=== PATIENT | male | born 1965 | race Caucasian/White ===

== ENCOUNTER 2017-11-04 11:27 | Emergency (ER) | payer BC, OTHER ==
[2017-11-04 12:07] LABS: BASO # 0.1 10^3/uL (0.0-0.2); BASO % 1.1 % (0.0-1.0); EOS # 0.1 10^3/uL (0.0-0.50); HEMATOCRIT 44.1 % (42.0-52.0); HEMOGLOBIN 15.3 g/dl (14.0-18.0); IMMATURE GRANULOCYTE % 0.6 % (0-3.0); LYMPH # 1.7 10^3/uL (1.5-4.5); LYMPH % 24.4 % (24.0-44.0); MEAN CORPUSCULAR HGB CONC 34.7 g/dl (32.0-36.5); MEAN CORPUSCULAR VOLUME 89.3 fl (80.0-96.0); MONO # 0.8 10^3/uL (0.0-0.8); MONO % 10.8 % (0.0-5.0); NEUTROPHILS # 4.4 10^3/uL (1.8-7.7); NEUTROPHILS % 61.1 % (36.0-66.0); PLATELET COUNT, AUTOMATED 134 10^3/uL (150-450); RED BLOOD COUNT 4.94 10^6/uL (4.30-6.10); RED CELL DISTRIBUTION WIDTH 12.8 % (11.5-14.5); WHITE BLOOD COUNT 7.1 10^3/uL (4.0-10.0)
[2017-11-04 12:24] LABS: ANION GAP 10 MEQ/L (8-16); BLOOD UREA NITROGEN 9 MG/DL (7-18); CALCIUM LEVEL 8.8 MG/DL (8.5-10.1); CARBON DIOXIDE LEVEL 26 MEQ/L (21-32); CHLORIDE LEVEL 102 MEQ/L (98-107); CREATININE FOR GFR 0.91 MG/DL (0.70-1.30); GLOMERULAR FILTRATION RATE > 60.0 (>56); GLUCOSE, FASTING 122 MG/DL (70-100); POTASSIUM SERUM 3.4 MEQ/L (3.5-5.1); SODIUM LEVEL 138 MEQ/L (136-145)
[2017-11-04 15:02] LABS: ALBUMIN/GLOBULIN RATIO 0.87 (1.00-1.93); ALKALINE PHOSPHATASE 117 U/L (45-117); ALT/SGPT 43 U/L (12-78); AST/SGOT 93 U/L (7-37); BILIRUBIN,DIRECT 0.4 MG/DL (0.0-0.2); TOTAL PROTEIN 8.6 GM/DL (6.4-8.2)
[2017-11-04] MEDS: LORazepam 2 MG/ML VIAL (J2060) IV (15:28)
[2017-11-04] MEDS: hydrALAZINE INJ 20 MG/ML VIAL IV (15:57)
== END 2017-11-04 16:35 | disposition home or self-care (01) ==
LOC: M ED 11:27
DX: I10 Essential (primary) hypertension (principal); R42 Dizziness and giddiness; R74.8 Abnormal levels of other serum enzymes; F17.220 Nicotine dependence, chewing tobacco, uncomplicated
CPT/HCPCS: J2060

== ENCOUNTER → 2017-11-12 | Outpatient (CLI) | payer OTHER, BC ==
[2017-11-12 18:10] LABS: URIC ACID 7.6 MG/DL (3.5-7.2)
== END ==
LOC: M WUC 12:33
DX: M10.9 Gout, unspecified (principal)
CPT/HCPCS: 84550

== ENCOUNTER 2017-12-24 16:21 | Emergency (ER) | payer BC, OTHER ==
[2017-12-24 17:18] LABS: BASO # 0.1 10^3/uL (0.0-0.2); BASO % 0.7 % (0.0-1.0); EOS % 0.4 % (0.0-3.0); HEMATOCRIT 46.3 % (42.0-52.0); HEMOGLOBIN 15.7 g/dl (13.5-17.5); IMMATURE GRANULOCYTE % 0.4 % (0-3.0); LYMPH # 1.6 10^3/uL (1.5-4.5); LYMPH % 17.3 % (24.0-44.0); MEAN CORPUSCULAR HEMOGLOBIN 29.6 pg (27.0-33.0); MEAN CORPUSCULAR HGB CONC 33.9 g/dl (32.0-36.5); MEAN CORPUSCULAR VOLUME 87.4 fl (80.0-96.0); MONO % 10.2 % (0.0-5.0); NEUTROPHILS # 6.7 10^3/uL (1.8-7.7); PLATELET COUNT, AUTOMATED 229 10^3/uL (150-450); RED CELL DISTRIBUTION WIDTH 13.2 % (11.5-14.5); WHITE BLOOD COUNT 9.4 10^3/uL (4.0-10.0)
[2017-12-24 17:41] LABS: ANION GAP 8 MEQ/L (8-16); BLOOD UREA NITROGEN 15 MG/DL (7-18); CALCIUM LEVEL 10.1 MG/DL (8.5-10.1); CARBON DIOXIDE LEVEL 28 MEQ/L (21-32); CHLORIDE LEVEL 103 MEQ/L (98-107); CREATININE FOR GFR 0.85 MG/DL (0.70-1.30); GLOMERULAR FILTRATION RATE > 60.0 (>56); GLUCOSE, FASTING 104 MG/DL (70-100); POTASSIUM SERUM 3.6 MEQ/L (3.5-5.1); SODIUM LEVEL 139 MEQ/L (136-145)
[2017-12-24] MEDS: hydrALAZINE INJ 20 MG/ML VIAL IV ×2 (17:45→19:29)
[2017-12-24] MEDS ORDERED: ISOVUE-370 76% 100ML VIAL (Q9967) As Ordered (19:19)
[2017-12-24] MEDS: LORazepam 2 MG/ML VIAL (J2060) IV (19:46)
== END 2017-12-24 21:23 | disposition home or self-care (01) ==
LOC: M ED 16:21
DX: I10 Essential (primary) hypertension (principal); R00.0 Tachycardia, unspecified
CPT/HCPCS: Q9967

== ENCOUNTER → 2017-12-31 | Outpatient (CLI) | payer BC, OTHER ==
[2017-12-31 12:20] LABS: BASO # 0.1 10^3/uL (0.0-0.2); BASO % 0.8 % (0.0-1.0); EOS # 0.2 10^3/uL (0.0-0.50); EOS % 1.4 % (0.0-3.0); HEMATOCRIT 45.9 % (42.0-52.0); HEMOGLOBIN 15.6 g/dl (13.5-17.5); IMMATURE GRANULOCYTE % 0.6 % (0-3.0); LYMPH # 2.2 10^3/uL (1.5-4.5); LYMPH % 20.3 % (24.0-44.0); MEAN CORPUSCULAR HEMOGLOBIN 30.1 pg (27.0-33.0); MEAN CORPUSCULAR VOLUME 88.6 fl (80.0-96.0); MONO # 1.9 10^3/uL (0.0-0.8); MONO % 17.2 % (0.0-5.0); NEUTROPHILS # 6.4 10^3/uL (1.8-7.7); NEUTROPHILS % 59.7 % (36.0-66.0); PLATELET COUNT, AUTOMATED 222 10^3/uL (150-450); RED BLOOD COUNT 5.18 10^6/uL (4.30-6.10); RED CELL DISTRIBUTION WIDTH 13.2 % (11.5-14.5); WHITE BLOOD COUNT 10.8 10^3/uL (4.0-10.0)
[2017-12-31 12:32] LABS: ALBUMIN 3.9 GM/DL (3.2-5.2); ALBUMIN/GLOBULIN RATIO 0.83 (1.00-1.93); ALKALINE PHOSPHATASE 99 U/L (45-117); ALT/SGPT 27 U/L (12-78); ANION GAP 10 MEQ/L (8-16); AST/SGOT 39 U/L (7-37); BILIRUBIN,TOTAL 0.8 MG/DL (0.2-1.0); BLOOD UREA NITROGEN 30 MG/DL (7-18); CALCIUM LEVEL 11.2 MG/DL (8.5-10.1); CARBON DIOXIDE LEVEL 37 MEQ/L (21-32); CHLORIDE LEVEL 86 MEQ/L (98-107); CHOLESTEROL LEVEL 183 MG/DL (<200); CREATININE FOR GFR 2.12 MG/DL (0.70-1.30); GLOMERULAR FILTRATION RATE 35.4 (>56); GLUCOSE, FASTING 99 MG/DL (70-100); HDL CHOLESTEROL 61 MG/DL (>40); LDL CHOLESTEROL 90.6 MG/DL (<100); NON-HDL-C 122 MG/DL; POTASSIUM SERUM 3.9 MEQ/L (3.5-5.1); SODIUM LEVEL 133 MEQ/L (136-145); TOTAL PROTEIN 8.6 GM/DL (6.4-8.2); TRIGLYCERIDES LEVEL 157 MG/DL (<150)
[2017-12-31 13:03] LABS: CREATININE, URINE 89.9 MG/DL; MALB URINE SIEMENS 74.1 MG/L; MAU/CREAT RATIO 82.4 MCG/MG (0.0-30.0)
== END ==
LOC: M WUC 08:54
DX: R74.8 Abnormal levels of other serum enzymes (principal); R73.09 Other abnormal glucose; R79.89 Other specified abnormal findings of blood chemistry; I16.0 Hypertensive urgency; Z13.220 Encounter for screening for lipoid disorders
CPT/HCPCS: 80053

== ENCOUNTER → 2018-01-03 | Outpatient (CLI) | payer OTHER, BC ==
[2018-01-03 16:39] LABS: ANION GAP 9 MEQ/L (8-16); BLOOD UREA NITROGEN 41 MG/DL (7-18); CALCIUM LEVEL 11.9 MG/DL (8.5-10.1); CARBON DIOXIDE LEVEL 34 MEQ/L (21-32); CHLORIDE LEVEL 91 MEQ/L (98-107); CREATININE FOR GFR 2.24 MG/DL (0.70-1.30); GLOMERULAR FILTRATION RATE 33.2 (>56); GLUCOSE, FASTING 102 MG/DL (70-100); POTASSIUM SERUM 4.6 MEQ/L (3.5-5.1); SODIUM LEVEL 134 MEQ/L (136-145)
[2018-01-03 16:44] LABS: APPEARANCE, URINE CLEAR (CLEAR); BACTERIA, URINE AUTO NEGATIVE (NEGATIVE); BILIRUBIN, URINE AUTO NEGATIVE (NEGATIVE); BLOOD, URINE BLOOD NEGATIVE (NEGATIVE); COLOR, URINE STRAW (YELLOW); GLUCOSE, URINE (UA) AUTO 1+ mg/dL (NEGATIVE); KETONE, URINE AUTO NEGATIVE (NEGATIVE); LEUKOCYTE ESTERASE, URINE AUTO NEGATIVE (NEGATIVE); NITRITE, URINE AUTO NEGATIVE (NEGATIVE); PROTEIN, URINE AUTO NEGATIVE (NEGATIVE); RBC, URINE AUTO 2 /HPF (0-3); SPECIFIC GRAVITY URINE AUTO 1.006 (1.002-1.035); SQUAMOUS EPITHELIAL CELL UR AU 0 /HPF (0-6); UROBILINOGEN, URINE AUTO 0.2 mg/dL (0.0-2.0); WBC, URINE AUTO 0 /HPF (0-3)
== END ==
LOC: M WUC 12:01
DX: N17.9 Acute kidney failure, unspecified (principal); I16.1 Hypertensive emergency
CPT/HCPCS: 80048

== ENCOUNTER → 2018-01-21 | Outpatient (CLI) | payer OTHER, BC ==
[2018-01-21 16:54] LABS: IONIZED CALCIUM 4.5 MG/DL (4.5-5.3)
[2018-01-21 17:29] LABS: PTH INTACT 56.1 PG/ML (18.5-88.0)
[2018-01-21 18:54] LABS: ESTIMATED AVERAGE GLUCOSE 120 MG/DL (60-110); HEMOGLOBIN A1c 5.8 %
== END ==
LOC: M WUC 16:12
DX: E83.52 Hypercalcemia (principal); R81 Glycosuria
CPT/HCPCS: 82310

== ENCOUNTER → 2018-01-30 | Outpatient (CLI) | payer OTHER, BC ==
[2018-01-30 13:33] LABS: ALBUMIN/GLOBULIN RATIO 0.89 (1.00-1.93); ALKALINE PHOSPHATASE 186 U/L (45-117); ALT/SGPT 51 U/L (12-78); ANION GAP 10 MEQ/L (8-16); AST/SGOT 83 U/L (7-37); BILIRUBIN,TOTAL 0.8 MG/DL (0.2-1.0); BLOOD UREA NITROGEN 12 MG/DL (7-18); CALCIUM LEVEL 8.7 MG/DL (8.5-10.1); CARBON DIOXIDE LEVEL 23 MEQ/L (21-32); CHLORIDE LEVEL 106 MEQ/L (98-107); CREATININE FOR GFR 0.82 MG/DL (0.70-1.30); GLOMERULAR FILTRATION RATE > 60.0 (>56); GLUCOSE, FASTING 101 MG/DL (70-100); POTASSIUM SERUM 4.1 MEQ/L (3.5-5.1); SODIUM LEVEL 139 MEQ/L (136-145); TOTAL PROTEIN 8.5 GM/DL (6.4-8.2)
[2018-01-30 13:43] LABS: MAU/CREAT RATIO 80.2 MCG/MG (0.0-30.0)
== END ==
LOC: M WUC 10:36
DX: N17.9 Acute kidney failure, unspecified (principal); I10 Essential (primary) hypertension
CPT/HCPCS: 80053

== ENCOUNTER → 2018-01-30 | Outpatient (CLI) | payer OTHER, BC ==
[2018-01-30 13:34] LABS: ANION GAP 10 MEQ/L (8-16); BLOOD UREA NITROGEN 12 MG/DL (7-18); CALCIUM LEVEL 8.7 MG/DL (8.5-10.1); CARBON DIOXIDE LEVEL 23 MEQ/L (21-32); CHLORIDE LEVEL 106 MEQ/L (98-107); CREATININE FOR GFR 0.82 MG/DL (0.70-1.30); GLOMERULAR FILTRATION RATE > 60.0 (>56); GLUCOSE, FASTING 101 MG/DL (70-100); POTASSIUM SERUM 4.1 MEQ/L (3.5-5.1); SODIUM LEVEL 139 MEQ/L (136-145)
[2018-01-30 14:01] LABS: PHOSPHORUS LEVEL 3.9 MG/DL (2.5-4.9)
[2018-01-30 23:33] LABS: MAU/CREAT RATIO 74.1 MCG/MG (0.0-30.0)
[2018-02-08 00:08] LABS: ALDOS/RENIN RATIO 2.5 (0.0-30.0); RENIN ACTIVITY 1.986 ng/mL/hr (0.167-5.380)
== END ==
LOC: M WUC 10:40
DX: I10 Essential (primary) hypertension (principal)
CPT/HCPCS: 84244

== ENCOUNTER → 2018-02-03 | Outpatient (REF) | payer OTHER, BC ==
[2018-02-03 11:57] LABS: TOTAL VOLUME, URINE 1750 ML
[2018-02-03 12:23] LABS: SODIUM 24 HOUR URINE 24 MEQ/24HR (40-220); SODIUM, URINE 14 MEQ/L
[2018-02-07 00:07] LABS: DOPAMINE 236 ug/24 hr (0-510); DOPAMINE TOTAL URINE 135 ug/L (Undefined); EPINEPHRINE 4 ug/24 hr (0-20); EPINEPHRINE TOTAL URINE 2 ug/L (Undefined); METANEPHRINE TOTAL URINE 37 ug/L (Undefined); METANEPHRINE URINE 65 ug/24 hr (45-290); NOREPINEPHRINE 72 ug/24 hr (0-135); NOREPINEPHRINE TOTAL URINE 41 ug/L (Undefined); NORMETANEPHRINE TOTAL URINE 264 ug/L (Undefined); NORMETANEPHRINE URINE 462 ug/24 hr (82-500)
== END ==
LOC: M LAB REF 11:32
DX: I10 Essential (primary) hypertension (principal)

== ENCOUNTER → 2018-03-11 | Outpatient (REF) | payer OTHER, BC ==
[2018-03-20 00:20] LABS: CORTISOL SALIVARY 0.275 ug/dL (.)
== END ==
LOC: M LAB REF 17:30
DX: I10 Essential (primary) hypertension (principal)

== ENCOUNTER → 2018-03-21 | Outpatient (CLI) | payer OTHER, BC ==
[2018-03-21 13:13] LABS: INR 1.07; PARTIAL THROMBOPLASTIN TIME 31.9 SECONDS (25.4-37.6); PROTHROMBIN TIME 14.1 SECONDS (12.1-14.4)
[2018-03-21 13:21] LABS: ALBUMIN/GLOBULIN RATIO 0.87 (1.00-1.93); ALKALINE PHOSPHATASE 272 U/L (45-117); ALT/SGPT 81 U/L (12-78); ANION GAP 11 MEQ/L (8-16); AST/SGOT 188 U/L (7-37); BILIRUBIN,TOTAL 1.4 MG/DL (0.2-1.0); BLOOD UREA NITROGEN 7 MG/DL (7-18); CALCIUM LEVEL 9.6 MG/DL (8.5-10.1); CARBON DIOXIDE LEVEL 27 MEQ/L (21-32); CHLORIDE LEVEL 102 MEQ/L (98-107); GLOMERULAR FILTRATION RATE > 60.0 (>56); GLUCOSE, FASTING 122 MG/DL (70-100); POTASSIUM SERUM 4.2 MEQ/L (3.5-5.1); SODIUM LEVEL 140 MEQ/L (136-145); TOTAL PROTEIN 8.6 GM/DL (6.4-8.2)
== END ==
LOC: M WUC 09:00
DX: R94.5 Abnormal results of liver function studies (principal)
CPT/HCPCS: 80053

== ENCOUNTER → 2018-04-24 | Outpatient (CLI) | payer OTHER, BC ==
[2018-04-24 10:49] LABS: BASO # 0.1 10^3/uL (0.0-0.2); BASO % 0.8 % (0.0-1.0); EOS # 0.2 10^3/uL (0.0-0.50); EOS % 3.4 % (0.0-3.0); HEMATOCRIT 43.2 % (42.0-52.0); HEMOGLOBIN 14.7 g/dl (13.5-17.5); IMMATURE GRANULOCYTE % 0.3 % (0-3.0); LYMPH # 2.1 10^3/uL (1.5-4.5); LYMPH % 29.2 % (24.0-44.0); MEAN CORPUSCULAR HEMOGLOBIN 31.1 pg (27.0-33.0); MEAN CORPUSCULAR VOLUME 91.3 fl (80.0-96.0); MONO # 0.9 10^3/uL (0.0-0.8); MONO % 12.1 % (0.0-5.0); NEUTROPHILS # 3.9 10^3/uL (1.8-7.7); NEUTROPHILS % 54.2 % (36.0-66.0); PLATELET COUNT, AUTOMATED 163 10^3/uL (150-450); RED BLOOD COUNT 4.73 10^6/uL (4.30-6.10); RED CELL DISTRIBUTION WIDTH 12.2 % (11.5-14.5); WHITE BLOOD COUNT 7.1 10^3/uL (4.0-10.0)
[2018-04-24 11:37] LABS: BILIRUBIN,DIRECT 0.5 MG/DL (0.0-0.2); BILIRUBIN,TOTAL 1.1 MG/DL (0.2-1.0); GAMMA GLUTAMYLTRANSPEPTIDASE 4500 U/L (15-85); TOTAL PROTEIN 8.8 GM/DL (6.4-8.2)
[2018-04-25 09:15] LABS: HEPATITIS B SURFACE ANTIGEN NEGATIVE (NEGATIVE)
[2018-04-25 09:39] LABS: HEPATITIS C VIRUS ABY INDEX 0.1 INDEX (<0.8)
[2018-04-25 09:40] LABS: HEPATITIS B CORE ANTIBODY IGM NEGATIVE (NEGATIVE)
[2018-04-25 09:41] LABS: HEPATITIS A ANTIBODY IGM NEGATIVE (NEGATIVE)
[2018-04-25 14:57] LABS: CERULOPLASMIN 23.3 mg/dL (16.0-31.0)
[2018-04-29 10:59] LABS: ALBUMIN 4.64 GM/DL (3.29-5.55); ALBUMIN % 52.7 % (55.8-66.1); ALPHA-1-GLOBULIN % 3.2 % (2.9-4.9); ALPHA-1-GLOBULINS 0.28 GM/DL (0.17-0.41); ALPHA-2-GLOBULINS 0.84 GM/DL (0.42-0.99); ALPHA-2-GLOBULINS % 9.6 % (7.1-11.8); BETA-1-GLOBULINS % 7.9 % (4.7-7.2)
[2018-04-29 11:00] LABS: BETA-2-GLOBULINS 0.66 GM/DL (0.19-0.55); BETA-2-GLOBULINS % 7.5 % (3.2-6.5); GAMMA GLOBULIN % 19.1 % (11.1-18.8); GAMMA GLOBULINS 1.68 GM/DL (0.65-1.58)
== END ==
LOC: M WUC 09:02
DX: R94.5 Abnormal results of liver function studies (principal); R04.0 Epistaxis
CPT/HCPCS: 82247

== ENCOUNTER → 2018-04-25 | Outpatient (CLI) | payer BC, OTHER | LOC: M RAD 07:50 | DX: R94.5 Abnormal results of liver function studies (principal); K76.0 Fatty (change of) liver, not elsewhere classified | CPT/HCPCS: 76705 ==

== ENCOUNTER → 2018-05-29 | Outpatient (CLI) | payer OTHER, BC ==
[2018-05-29 13:52] LABS: RETIC HEMOGLOBIN EQUIVALENT 36.6 pg (24-36); RETICULOCYTE # 42.2 10^9/L (17-77); RETICULOCYTE % 0.9 % (0.5-1.5)
[2018-05-29 14:08] LABS: CREATININE, URINE 81.5 MG/DL
[2018-05-29 14:10] LABS: FERRITIN 52 NG/ML (26-388); IRON (FE) 67 UG/DL (65-175); PERCENT SATURATION 13.6 % (19.7-50.0); TOTAL IRON BINDING CAPACITY 491 UG/DL (250-450)
[2018-05-29 14:12] LABS: MAU/CREAT RATIO 353.4 MCG/MG (0.0-30.0)
[2018-05-30 09:53] LABS: TRANSFERRIN 380 mg/dL (200-370)
== END ==
LOC: M WUC 10:26
DX: Z13.0 Encounter for screening for diseases of the blood and blood-forming organs and certain disorders involving the immune mechanism (principal); I10 Essential (primary) hypertension
CPT/HCPCS: 83550

== ENCOUNTER → 2018-07-10 | Outpatient (REF) | payer OTHER | LOC: M LAB REF 13:26 | DX: R80.9 Proteinuria, unspecified (principal) ==

== ENCOUNTER → 2018-07-16 | Outpatient (CLI) | payer BC, OTHER | LOC: M SLEEP HO 10:39 | DX: G47.34 Idiopathic sleep related nonobstructive alveolar hypoventilation (principal); G47.33 Obstructive sleep apnea (adult) (pediatric) | CPT/HCPCS: G0399 ==

== ENCOUNTER → 2018-07-31 | Outpatient (CLI) | payer OTHER, BC ==
[2018-07-31 13:01] LABS: INR 1.15; PROTHROMBIN TIME 14.8 SECONDS (12.1-14.4)
[2018-07-31 13:02] LABS: PARTIAL THROMBOPLASTIN TIME 32.2 SECONDS (25.4-37.6)
[2018-07-31 13:16] LABS: ALBUMIN 3.8 GM/DL (3.2-5.2); ALBUMIN/GLOBULIN RATIO 0.76 (1.00-1.93); ALKALINE PHOSPHATASE 291 U/L (45-117); ALT/SGPT 51 U/L (12-78); ANION GAP 11 MEQ/L (8-16); AST/SGOT 103 U/L (7-37); BILIRUBIN,DIRECT 0.7 MG/DL (0.0-0.2); BILIRUBIN,TOTAL 1.1 MG/DL (0.2-1.0); BLOOD UREA NITROGEN 10 MG/DL (7-18); CALCIUM LEVEL 8.9 MG/DL (8.5-10.1); CARBON DIOXIDE LEVEL 26 MEQ/L (21-32); CHLORIDE LEVEL 105 MEQ/L (98-107); CREATININE FOR GFR 0.81 MG/DL (0.70-1.30); GLOMERULAR FILTRATION RATE > 60.0 (>56); GLUCOSE, FASTING 97 MG/DL (70-100); POTASSIUM SERUM 3.9 MEQ/L (3.5-5.1); SODIUM LEVEL 142 MEQ/L (136-145); TOTAL PROTEIN 8.8 GM/DL (6.4-8.2)
[2018-08-05 10:16] LABS: ALPHA 2-MACROGLOBULINS,QN 248 mg/dL (110-276); ALT (SGPT) P5P 43 IU/L (0-55); APOLIPOPROTEIN A-1 204 mg/dL (101-178); AST (SGOT) P5P 108 IU/L (0-40); BILIRUBIN, TOTAL 0.9 mg/dL (0.0-1.2); CHOLESTEROL TOTAL 183 mg/dL (100-199); GGT 2505 IU/L (0-65); GLUCOSE, SERUM 100 mg/dL (65-99); HAPTOGLOBIN 234 mg/dL (34-200); HEIGHT 67 in (.); TRIGLYCERIDES 164 mg/dL (0-149); WEIGHT 157 LBS (.)
== END ==
LOC: M WUC 10:34
DX: K70.30 Alcoholic cirrhosis of liver without ascites (principal)
CPT/HCPCS: 82248

== ENCOUNTER → 2018-08-16 | Outpatient (REF) | payer OTHER ==
[~2018-08-16] MED LIST: CHLO125TA PO; CHLO50TA PO; HYDR12.55 PO
== END ==
LOC: M SFHCPLAZ 09:51
DX: K70.30 Alcoholic cirrhosis of liver without ascites (principal)

== ENCOUNTER → 2018-08-28 | Outpatient (CLI) | payer OTHER | LOC: M OUTALCOH 08:55 | PROVIDERS: ATTEND Psychiatry & Neurology Psychiatry | DX: Z13.89 Encounter for screening for other disorder (principal); F10.10 Alcohol abuse, uncomplicated ==

== ENCOUNTER → 2018-09-12 | Outpatient (CLI) | payer BC, OTHER ==
[~2018-09-12] MED LIST changes: +AMLO10TA5 PO; +ATOR40TA75 PO; +FOLI1TAB11 PO; +METO1TAB7 PO; +MULT1TAB10 PO; +VITA100T88 PO
[2018-09-12 13:44] LABS: ALBUMIN 4.5 GM/DL (3.2-5.2); ALT/SGPT 62 U/L (12-78); BILIRUBIN,TOTAL 0.8 MG/DL (0.2-1.0); BLOOD UREA NITROGEN 15 MG/DL (7-18); CARBON DIOXIDE LEVEL 24 MEQ/L (21-32); CHLORIDE LEVEL 104 MEQ/L (98-107); CREATININE FOR GFR 0.95 MG/DL (0.70-1.30); GLOMERULAR FILTRATION RATE > 60.0 (>56); GLUCOSE, FASTING 130 MG/DL (70-100); SODIUM LEVEL 138 MEQ/L (136-145); TOTAL PROTEIN 9.1 GM/DL (6.4-8.2)
[2018-09-12 14:02] LABS: HEPATITIS B SURFACE ANTIBODY NEGATIVE (POSITIVE)
[2018-09-12 14:41] LABS: HEPATITIS B CORE ANTIBODY IGM NEGATIVE (NEGATIVE); HEPATITIS C VIRUS ABY INDEX 0.1 INDEX (<0.8)
[2018-09-13 08:06] LABS: HEPATITIS A IgG TOTAL Positive (Negative)
== END ==
LOC: M WUC 10:00
PROVIDERS: ATTEND Family Medicine
DX: K70.30 Alcoholic cirrhosis of liver without ascites (principal)

== ENCOUNTER 2018-09-22 11:00 | Outpatient (RCR) | payer OTHER ==
[~2018-09-22 11:00] MED LIST changes: -AMLO10TA5 PO; -ATOR40TA75 PO; -FOLI1TAB11 PO; -METO1TAB7 PO; -MULT1TAB10 PO; -VITA100T88 PO
== END 2018-10-02 ==
LOC: M OUTALCOH 11:00
PROVIDERS: ATTEND Psychiatry & Neurology Psychiatry
DX: F10.20 Alcohol dependence, uncomplicated (principal); F17.200 Nicotine dependence, unspecified, uncomplicated

== ENCOUNTER 2018-10-15 07:55 | Day surgery (SDC) | payer BC, OTHER ==
[~2018-10-15] VITALS: Ht 170.2 cm; Wt 69.9 kg
[~2018-10-15 07:55] MED LIST changes: +ACETAMINOPHEN 325 MG TAB PO PRN; +AMLO10TA5 PO; +ATOR40TA75 PO; +BALANCED SALT IRRIGATION SOLUTION 500ML BAG (FOR OR EYE MACHINE) As Ordered ONE; +BSS with VANC/TOB/EPI for EYE CASES IR ONE; +CEFUROXIME 1MG/0.1ML INTRACAMERAL INJ As Ordered ONE; +CYCLOPENTOLATE 2% OPHTH SOLN 2ML BTL OS ONE; +FOLI1TAB11 PO; +HEALON DUET PRO(HEALON 10MG/ML 0.55ML & HEALON ENDOCOAT 30MG/ML 0.85ML) As Ordered ONE; +LIDOCAINE 1% SDV 5 ML VIAL As Ordered ONE; +LIDOCAINE 3.5 % 1ML OPHTH TOPICAL GEL OU ONE; +METO1TAB7 PO; +MULT1TAB10 PO; +OFLOXACIN 0.3 % (OCUFLOX) OPTH SOL 5ML OS ONE; +PHENYLEPHRINE 2.5% OPHTH SOL 2ML OS ONE; +PHENYLEPHRINE HCL 10 % OPHTH. SOL 5ML OS PRN; +POVIDONE-IODINE 5% OPHTH PREP SOL 30ML As Ordered ONE; +PROPARACAINE 0.5% OPHTH SOL 15ML OS PRN; +TROPICAMIDE 1% OPHTH SOLN 2ML OS ONE; +VITA100T88 PO
[2018-10-15] MEDS ORDERED: KETOROLAC 0.5% OPHTH SOLN OS ONE (08:15)
[2018-10-15] MEDS ORDERED: AcetaZOLAMIDE 500 MG ER CAP PO ONE (08:15)
[2018-10-15] MEDS ORDERED: TRIMETHOBENZAMIDE 300 MG CAP PO PRN (08:15)
[2018-10-15] MEDS ORDERED: MIDAZOLAM INJ 2 MG/2 ML VIAL (J2250) As Ordered ONE (09:01)
[2018-10-15] MEDS ORDERED: fentaNYL 100 MCG/2 ML INJECTION (J3010) As Ordered ONE (09:01)
[2018-10-15] MEDS ORDERED: HEALON DUET PRO(HEALON 10MG/ML 0.55ML & HEALON ENDOCOAT 30MG/ML 0.85ML) As Ordered ONE (09:22)
[2018-10-15 09:45] VITALS: BP 131/78
[2018-10-15] MEDS ORDERED: PERCOCET 5MG/325MG TAB PO PRN (09:45)
[2018-10-15] MEDS ORDERED: fentaNYL 100 MCG/2 ML INJECTION (J3010) IV PRN (09:45)
--- NOTE | 2018-10-17 12:36 | RO ---
DATE OF PROCEDURE: 10/15/2018 PREOPERATIVE DIAGNOSIS: Age-related nuclear cataract left eye. POSTOPERATIVE DIAGNOSIS: Age-related nuclear cataract left eye. PROCEDURE PERFORMED: Femtosecond cataract extraction with posterior chamber intraocular lens implantation and Optiwave Refractive Analysis (ORA). Lens used was AU00T0, 21.0 diopter. SURGEON: Nicolasa Barragan MD MOTION PICTURE SCENE BUILDER: ANESTHESIA: Topical with sedation. DESCRIPTION OF PROCEDURE: Patient was prepped and draped in usual fashion. A lid speculum was placed between the lids. The eye was fixated. A stab incision was made into the anterior chamber. 1% nonpreserved lidocaine was instilled. Then viscoelastic was instilled. The main incision was then opened with the incision dental laboratory supervisor, and the anterior capsulorrhexis was removed, was performed by the laser. The lens was then rocked to remove any gas from behind it, and then it was freely movable in the capsular bag. The phacoemulsification unit was used to groove the nucleus in two meridians. The nucleus was cracked into four quadrants. Each quadrant was removed with the phacoemulsification unit. Any remaining cortex was removed with the irrigation and aspiration (I and A) unit. The capsular bag was refilled with viscoelastic, and then the intraocular pressure measured and found to be adequate for ORA. The ORA was lowered into place, focused on the apex of the cornea, and aligned to the patient. Readings were made, and an appropriate intraocular lens was chosen from the data generated by the ORA. The lens was then injected into the eye with its filler block inserter remover and into the capsular bag. It was in great position. Any remaining viscoelastic was removed with the I and A unit. The wound was then hydrated, and balanced salt solution (BSS) and cefuroxime were instilled. Patient tolerated this procedure well and went to recovery room in stable condition.
== END 2018-10-15 10:00 | disposition home or self-care (01) ==
LOC: M SDC 07:55
PROVIDERS: ATTEND Ophthalmology
DX: H25.12 Age-related nuclear cataract, left eye (principal); E78.5 Hyperlipidemia, unspecified; Z79.899 Other long term (current) drug therapy; I10 Essential (primary) hypertension; F17.220 Nicotine dependence, chewing tobacco, uncomplicated
CPT/HCPCS: 66984; 92015; J2250; J3010

== ENCOUNTER 2018-11-12 07:51 | Day surgery (SDC) | payer BC, OTHER ==
[~2018-11-12] VITALS: Ht 170.2 cm; Wt 68.9 kg
[~2018-11-12 07:51] MED LIST changes: -ACETAMINOPHEN 325 MG TAB PO PRN; -BSS with VANC/TOB/EPI for EYE CASES IR ONE; +CYCLOPENTOLATE 2% OPHTH SOLN 2ML BTL OD ONE; -CYCLOPENTOLATE 2% OPHTH SOLN 2ML BTL OS ONE; +OFLOXACIN 0.3 % (OCUFLOX) OPTH SOL 5ML OD ONE; -OFLOXACIN 0.3 % (OCUFLOX) OPTH SOL 5ML OS ONE; +PHENYLEPHRINE 2.5% OPHTH SOL 2ML OD ONE; -PHENYLEPHRINE 2.5% OPHTH SOL 2ML OS ONE; +PHENYLEPHRINE HCL 10 % OPHTH. SOL 5ML OD PRN; -PHENYLEPHRINE HCL 10 % OPHTH. SOL 5ML OS PRN; -PROPARACAINE 0.5% OPHTH SOL 15ML OS PRN; +TROPICAMIDE 1% OPHTH SOLN 2ML OD ONE; -TROPICAMIDE 1% OPHTH SOLN 2ML OS ONE
[2018-11-12] MEDS ORDERED: fentaNYL 100 MCG/2 ML INJECTION (J3010) As Ordered ONE (07:56)
[2018-11-12] MEDS ORDERED: MIDAZOLAM INJ 2 MG/2 ML VIAL (J2250) As Ordered ONE (07:56)
[2018-11-12 10:50] VITALS: BP 133/82
--- NOTE | 2018-11-12 16:28 | RO ---
DATE OF PROCEDURE: 11/12/2018 PREOPERATIVE DIAGNOSIS: Age-related nuclear cataract right eye. POSTOPERATIVE DIAGNOSIS: Age-related nuclear cataract right eye. PROCEDURE PERFORMED: Femtosecond cataract extraction with posterior chamber intraocular lens implantation and Optiwave Refractive Analysis (ORA). Lens used was an AU00T0, 22.5 diopter. SURGEON: Nicolasa Barragan MD PATTERNMAKER HELPER: ANESTHESIA: Topical with sedation. DESCRIPTION OF PROCEDURE: Patient was prepped and draped in usual fashion. A lid speculum was placed between the lids. The eye was fixated. A stab incision was made into the anterior chamber. 1% nonpreserved lidocaine was instilled. Then viscoelastic was instilled. The main incision was then opened with the incision reject opener and filler, and the anterior capsulorrhexis was removed, was performed by the laser. The lens was then rocked to remove any gas from behind it, and then it was freely movable in the capsular bag. The phacoemulsification unit was used to groove the nucleus in two meridians. The nucleus was cracked into four quadrants. Each quadrant was removed with the phacoemulsification unit. Any remaining cortex was removed with the irrigation and aspiration (I and A) unit. The capsular bag was refilled with viscoelastic, and then the intraocular pressure measured and found to be adequate for ORA. The ORA was lowered into place, focused on the apex of the cornea, and aligned to the patient. Readings were made, and an appropriate intraocular lens was chosen from the data generated by the ORA. The lens was then injected into the eye with its tray service worker and into the capsular bag. It was in great position. Any remaining viscoelastic was removed with the I and A unit. The wound was then hydrated, and balanced salt solution (BSS) and cefuroxime were instilled. Patient tolerated this procedure well and went to recovery room in stable condition.
== END 2018-11-12 11:00 | disposition home or self-care (01) ==
LOC: M SDC 07:51
PROVIDERS: ATTEND Ophthalmology
DX: H25.11 Age-related nuclear cataract, right eye (principal); I10 Essential (primary) hypertension; E78.5 Hyperlipidemia, unspecified; Z79.899 Other long term (current) drug therapy; F17.220 Nicotine dependence, chewing tobacco, uncomplicated
CPT/HCPCS: 66984; 92015; J2250; J3010

== ENCOUNTER → 2018-11-17 | Outpatient (CLI) | payer BC, OTHER ==
[~2018-11-17] MED LIST changes: -BALANCED SALT IRRIGATION SOLUTION 500ML BAG (FOR OR EYE MACHINE) As Ordered ONE; -CEFUROXIME 1MG/0.1ML INTRACAMERAL INJ As Ordered ONE; -CYCLOPENTOLATE 2% OPHTH SOLN 2ML BTL OD ONE; -HEALON DUET PRO(HEALON 10MG/ML 0.55ML & HEALON ENDOCOAT 30MG/ML 0.85ML) As Ordered ONE; -LIDOCAINE 1% SDV 5 ML VIAL As Ordered ONE; -LIDOCAINE 3.5 % 1ML OPHTH TOPICAL GEL OU ONE; -OFLOXACIN 0.3 % (OCUFLOX) OPTH SOL 5ML OD ONE; -PHENYLEPHRINE 2.5% OPHTH SOL 2ML OD ONE; -PHENYLEPHRINE HCL 10 % OPHTH. SOL 5ML OD PRN; -POVIDONE-IODINE 5% OPHTH PREP SOL 30ML As Ordered ONE; -TROPICAMIDE 1% OPHTH SOLN 2ML OD ONE
--- NOTE | 2018-11-18 06:28 | REP ---
Clinical: Non alcoholic fatty liver disease. Comparison: 04/25/2018 Technique: Ortiz scale ultrasound using curved array transducer. Findings: The liver and pancreas are normal in contour, size, and echogenicity without focal hepatic or pancreatic lesions identified. The gallbladder is normal without gallstones, wall thickening or pericholecystic fluid. No biliary ductal dilatation is appreciated, and the common bile duct measures 4.2 mm diameter. The right kidney is normal in reniform shape without hydronephrosis and measures 10.3 x 5.3 x 5.4 cm. No ascites. Visualized portions of the abdominal aorta normal. Impression: Normal right upper quadrant and gallbladder abdominal ultrasound. Electronically Signed by Scotty Kaiser MD 11/18/2018 06:19 A
== END ==
LOC: M RAD 09:15
PROVIDERS: ATTEND Student in an Organized Health Care Education/Training Program
DX: Z87.19 Personal history of other diseases of the digestive system (principal)

== ENCOUNTER → 2018-12-09 | Outpatient (CLI) | payer OTHER, BC ==
[2018-12-09 12:50] LABS: CHOLESTEROL RISK RATIO 2.405 (<5)
[2018-12-09 12:56] LABS: INR 1.05; PROTHROMBIN TIME 13.8 SECONDS (12.1-14.4)
[2018-12-09 13:04] LABS: HEMOGLOBIN A1c 5.7 %
[2018-12-11 00:06] LABS: ALPHA 1 ANTITRYPSIN 122 mg/dL (90-200); ANTI-MITOCHONDRIAL ANTIBODY <20.0 Units (0.0-20.0); ANTI-SMOOTH MUSCLE ANTIBODY 6 Units (0-19); ANTINUCLEAR ANTIBODIES DIRECT Negative (Negative); TISSUE TRANSGLUTAMINASE IgA <2 U/mL (0-3)
== END ==
LOC: M WUC 10:04
PROVIDERS: ATTEND Student in an Organized Health Care Education/Training Program
DX: K70.30 Alcoholic cirrhosis of liver without ascites (principal); E78.1 Pure hyperglyceridemia; K76.0 Fatty (change of) liver, not elsewhere classified

== ENCOUNTER → 2019-03-27 | Outpatient (REF) | payer OTHER | LOC: M LAB REF 16:12 | PROVIDERS: ATTEND Ophthalmology | DX: D23.112 Other benign neoplasm of skin of right lower eyelid, including canthus (principal) ==

== ENCOUNTER → 2019-05-15 | Outpatient (CLI) | payer BC, OTHER ==
--- NOTE | 2019-05-15 10:42 | REP ---
RIGHT UPPER QUADRANT ULTRASOUND: Real-time sonographic evaluation of the right upper quadrant was performed. The gallbladder demonstrates no evidence of intraluminal sludge or calculi, wall thickening or pericholecystic fluid. There is no intrahepatic or extrahepatic biliary dilatation. Common bile duct measuring 2 mm. Liver demonstrates diffuse coarsened heterogenous echotexture compatible with diffuse fibrofatty infiltration. No gross mass is seen. Main portal vein measures 15 mm which is mildly dilated, raising the possibility of portal hypertension. Pancrease is not well seen due to overlying bowel gas. Right kidney demonstrates no hydronephrosis with normal size 10.3 cm in length. IMPRESSION: Heterogenous echotexture of the liver compatible with diffuse fibrofatty infiltration and possible cirrhosis. Mild dilatation of the main portal vein 15 mm raises the possibility of portal hypertension. Electronically Signed by Dann Ortiz MD 05/15/2019 12:20 P
== END ==
LOC: M RAD 09:10
PROVIDERS: ATTEND Student in an Organized Health Care Education/Training Program
DX: K70.9 Alcoholic liver disease, unspecified (principal)

== ENCOUNTER → 2019-06-10 | Outpatient (CLI) | payer OTHER, BC ==
[2019-06-10 12:23] LABS: INR 1.05; PROTHROMBIN TIME 13.4 SECONDS (11.8-14.0)
[2019-06-10 12:24] LABS: PARTIAL THROMBOPLASTIN TIME 28.8 SECONDS (25.0-38.4)
[2019-06-10 12:37] LABS: ALBUMIN 4.2 GM/DL (3.2-5.2); ALT/SGPT 53 U/L (12-78); BLOOD UREA NITROGEN 21 MG/DL (7-18); CALCIUM LEVEL 9.1 MG/DL (8.5-10.1); CARBON DIOXIDE LEVEL 26 MEQ/L (21-32); CHLORIDE LEVEL 105 MEQ/L (98-107); CREATININE FOR GFR 1.13 MG/DL (0.70-1.30); GLOMERULAR FILTRATION RATE > 60.0 (>56); GLUCOSE, FASTING 103 MG/DL (70-100); POTASSIUM SERUM 4.7 MEQ/L (3.5-5.1); SODIUM LEVEL 138 MEQ/L (136-145); TOTAL PROTEIN 7.7 GM/DL (6.4-8.2)
== END ==
LOC: M WUC 10:36
PROVIDERS: ATTEND Student in an Organized Health Care Education/Training Program
DX: K70.9 Alcoholic liver disease, unspecified (principal)

== ENCOUNTER → 2019-10-02 | Outpatient (RCR) | payer OTHER, SELFPAY | LOC: M OUTALCOH 09-25 08:02 | PROVIDERS: ATTEND Psychiatry & Neurology Addiction Medicine | DX: F10.10 Alcohol abuse, uncomplicated (principal); F17.200 Nicotine dependence, unspecified, uncomplicated ==

== ENCOUNTER → 2019-12-14 | Outpatient (CLI) | payer OTHER ==
[2019-12-14 13:05] LABS: ALBUMIN 4.4 GM/DL (3.2-5.2); ALT/SGPT 53 U/L (12-78); BILIRUBIN,TOTAL 0.6 MG/DL (0.2-1.0); BLOOD UREA NITROGEN 18 MG/DL (7-18); CALCIUM LEVEL 9.4 MG/DL (8.5-10.1); CARBON DIOXIDE LEVEL 25 MEQ/L (21-32); CHLORIDE LEVEL 107 MEQ/L (98-107); CREATININE FOR GFR 1.27 MG/DL (0.70-1.30); GLOMERULAR FILTRATION RATE > 60.0 (>56); GLUCOSE, FASTING 109 MG/DL (70-100); POTASSIUM SERUM 4.8 MEQ/L (3.5-5.1); SODIUM LEVEL 139 MEQ/L (136-145); TOTAL PROTEIN 8.1 GM/DL (6.4-8.2)
[2019-12-14 13:26] LABS: INR 1.05; PROTHROMBIN TIME 13.4 SECONDS (11.8-14.0)
== END ==
LOC: M WUC 10:09
PROVIDERS: ATTEND Family Medicine
DX: K70.9 Alcoholic liver disease, unspecified (principal)

== ENCOUNTER → 2019-12-21 | Outpatient (REF) | payer OTHER ==
[2019-12-21 17:21] LABS: HEMOGLOBIN 14.5 g/dl (13.5-17.5); MEAN CORPUSCULAR HEMOGLOBIN 30.6 pg (27.0-33.0); MEAN CORPUSCULAR HGB CONC 33.7 g/dl (32.0-36.5); MEAN CORPUSCULAR VOLUME 90.7 fl (80.0-96.0); PLATELET COUNT, AUTOMATED 196 10^3/uL (150-450); RED BLOOD COUNT 4.74 10^6/uL (4.30-6.10); WHITE BLOOD COUNT 7.8 10^3/uL (4.0-10.0)
[2019-12-21 17:30] LABS: INR 1.08; PROTHROMBIN TIME 13.7 SECONDS (11.8-14.0)
[2019-12-21 17:55] LABS: CALCIUM LEVEL 9.6 MG/DL (8.5-10.1); CREATININE FOR GFR 1.69 MG/DL (0.70-1.30); FREE T4 0.7 NG/DL (0.76-1.46); GLOMERULAR FILTRATION RATE 45.6 (>56); POTASSIUM SERUM 4.8 MEQ/L (3.5-5.1); THYROID STIMULATING HORMONE 1.69 uIU/ML (0.358-3.740)
== END ==
LOC: M SFHCPLAZ 15:07
PROVIDERS: ATTEND Family Medicine
DX: K70.9 Alcoholic liver disease, unspecified (principal); R00.0 Tachycardia, unspecified

== ENCOUNTER → 2020-01-08 | Outpatient (CLI) | payer BC ==
--- NOTE | 2020-01-08 09:57 | REP ---
REASON FOR EXAM: Followup. COMPARISON: 05/15/2019, which shows fatty infiltration of the liver and a 15 mm sized main portal vein. Multiple ultrasonographic images of the liver again show a heterogeneous appearing echo pattern without evidence of a mass or ductal dilatation. T eh common bile duct measures 3 mm in its greatest dimension. There is no evidence of a gallbladder abnormality or significant change in appearance of the gallbladder from the prior exam. Maximal dimension of the liver is approximately 12 cm at the midclavicular line. Once again, the maximal diameter of the main portal vein is 15 mm unchanged from the prior exam. The imaged portion of the right kidney and pancreas are within normal limits. There is no free fluid in the abdomen. IMPRESSION: No significant change from the prior exam with findings as described above. Early hepatic cirrhotic features cannot be ruled out. If liver function is of clinical concern, consider liver/spleen scintigraphy if clinically relevant.
== END ==
LOC: M WHC 08:24
PROVIDERS: ATTEND Family Medicine
DX: K70.9 Alcoholic liver disease, unspecified (principal)

== ENCOUNTER → 2020-02-08 | Outpatient (CLI) | payer BC ==
[2020-02-08 17:37] LABS: BLOOD UREA NITROGEN 20 MG/DL (7-18); CALCIUM LEVEL 9.2 MG/DL (8.5-10.1); CARBON DIOXIDE LEVEL 28 MEQ/L (21-32); CHLORIDE LEVEL 105 MEQ/L (98-107); CREATININE FOR GFR 1.31 MG/DL (0.70-1.30); GLOMERULAR FILTRATION RATE > 60.0 (>56); GLUCOSE, FASTING 101 MG/DL (70-100); SODIUM LEVEL 136 MEQ/L (136-145)
== END ==
LOC: M WUC 12:19
PROVIDERS: ATTEND Family Medicine
DX: R79.89 Other specified abnormal findings of blood chemistry (principal)

== ENCOUNTER 2020-06-17 11:50 | Inpatient (IN) | payer BC, OTHER ==
[2020-06-16] MEDS: NS 1,000 ML IV SCH (05:00)
[~2020-06-17] VITALS: Ht 170.2 cm; Wt 71.1 kg
[~2020-06-17 11:50] MED LIST changes: -AMLO10TA5 PO; +AMLO1TAB25 PO; +FOLIC ACID 1 MG TAB PO SCH; +ONDANSETRON 4MG/2ML VIAL As Ordered ONE; -VITA100T88 PO; +VITAMIN B-1100 M4 PO
[2020-06-17] MEDS ORDERED: MULTIVITAMIN -ADULT INJECTION 10 ML, THIAMINE INJection 100 MG, FOLIC ACID 1 MG in NS 1... IV ONE (12:15)
[2020-06-17 12:23] LABS: BASO # 0.1 10^3/uL (0.0-0.2); BASO % 0.8 % (0.0-1.0); EOS # 0.1 10^3/uL (0.0-0.5); EOS % 1.8 % (0.0-3.0); HEMATOCRIT 33.6 % (42.0-52.0); HEMOGLOBIN 11.2 g/dl (13.5-17.5); LYMPH # 2.2 10^3/uL (1.5-5.0); LYMPH % 28.7 % (24.0-44.0); MEAN CORPUSCULAR HEMOGLOBIN 30.9 pg (27.0-33.0); MEAN CORPUSCULAR HGB CONC 33.3 g/dl (32.0-36.5); MEAN CORPUSCULAR VOLUME 92.6 fl (80.0-96.0); MONO # 0.5 10^3/uL (0.0-0.8); MONO % 6.8 % (0.0-5.0); NEUTROPHILS # 4.7 10^3/uL (1.5-8.5); PLATELET COUNT, AUTOMATED 179 10^3/uL (150-450); RED BLOOD COUNT 3.63 10^6/uL (4.30-6.10); WHITE BLOOD COUNT 7.7 10^3/uL (4.0-10.0)
[2020-06-17 12:24] LABS: VENOUS BASE EXCESS -10.3 (-2.0-2.0); VENOUS HCO3 17.4 MEQ/L (23.0-27.0); VENOUS O2 SATURATION 73.5 % (60.0-80.0); VENOUS PARTIAL PRESSURE CO2 45.8 mmHg (38.0-50.0); VENOUS PARTIAL PRESSURE O2 47.2 mmHg (30.0-50.0); VENOUS PH 7.198 UNITS (7.330-7.430); VENOUS STANDARD HCO3 15.9 MEQ/L; VENOUS TOTAL CO2 18.8 MEQ/L (24.0-28.0)
--- NOTE | 2020-06-17 12:38 | REPVR ---
PROCEDURE INFORMATION: Exam: XR Chest, 1 View Exam date and time: 06/17/2020 12:18 PM Age: 54 years old Clinical indication: Other: Syncope; Additional info: Syncope/near-syncope TECHNIQUE: Imaging protocol: XR of the chest Views: 1 view. COMPARISON: CT Chest with contrast 12/24/2017 7:55 PM FINDINGS: Lungs: No acute airspace disease. Pleural space: No pleural effusion. Heart/Mediastinum: No cardiomegaly. Bones/joints: Mild degenerative change. IMPRESSION: No acute airspace or pleural disease. Electronically signed by: Reji Ramires On 06/17/2020 12:38:43 PM
--- NOTE | 2020-06-17 12:40 | REPVR ---
PROCEDURE INFORMATION: Exam: CT Head Without Contrast Exam date and time: 06/17/2020 12:19 PM Age: 54 years old Clinical indication: Syncope and collapse; Additional info: Syncope; Head injury TECHNIQUE: Imaging protocol: Computed tomography of the head without contrast. Radiation optimization: All CT scans at this facility use at least one of these dose optimization techniques: automated exposure control; mA and/or kV adjustment per patient size (includes targeted exams where dose is matched to clinical indication); or iterative reconstruction. COMPARISON: CT Head without contrast 11/04/2017 2:46 PM FINDINGS: Brain: No acute intracranial hemorrhage, cerebral edema, or midline shift. Cerebral ventricles: No ventriculomegaly. Bones/joints: No acute fracture. Paranasal sinuses: Visualized sinuses are unremarkable. No fluid levels. Mastoid air cells: Visualized mastoid air cells are well aerated. Soft tissues: Unremarkable. IMPRESSION: No acute intracranial abnormality. Electronically signed by: Wm Kiser On 06/17/2020 12:40:30 PM
[2020-06-17 12:43] LABS: INR 1.15
--- NOTE | 2020-06-17 12:46 | REPVR ---
PROCEDURE INFORMATION: Exam: CT Cervical Spine Without Contrast Exam date and time: 06/17/2020 12:19 PM Age: 54 years old Clinical indication: Pain; Other: Syncope; Additional info: Syncope; Head injury TECHNIQUE: Imaging protocol: Computed tomography images of the cervical spine without contrast. Radiation optimization: All CT scans at this facility use at least one of these dose optimization techniques: automated exposure control; mA and/or kV adjustment per patient size (includes targeted exams where dose is matched to clinical indication); or iterative reconstruction. COMPARISON: No relevant prior studies available. FINDINGS: Vertebrae: No acute fracture. Normal alignment. Discs/Spinal canal/Neural foramina: Mild degenerative changes of the cervical spine are present. There is no significant spinal canal stenosis. Soft tissues: Unremarkable. Lungs: Lung apices are normal. Vasculature: Atherosclerotic calcifications are present at the carotid bifurcations. IMPRESSION: No acute abnormality. Electronically signed by: Wm Kiser On 06/17/2020 12:46:08 PM
[2020-06-17 12:53] LABS: FREE T4 0.66 NG/DL (0.76-1.46)
[2020-06-17] MEDS ORDERED: NS 1,000 ML IV ONE ×2 (13:00→14:00)
[2020-06-17 13:12] LABS: ALBUMIN 3.6 GM/DL (3.2-5.2); ALT/SGPT 57 U/L (12-78); BILIRUBIN,DIRECT 0.2 MG/DL (0.0-0.2); BILIRUBIN,TOTAL 0.5 MG/DL (0.2-1.0); CK-MB VALUE MASS 1.4 NG/ML (<3.6); CPK CREATINE PHOSPHOKINASE 125 U/L (39-308); ETHYL ALCOHOL (ETHANOL) 0.178 % (0.000-0.010); MB/CK RELATIVE INDEX 1.12 (< OR =4); TOTAL PROTEIN 6.8 GM/DL (6.4-8.2)
[2020-06-17] MEDS ORDERED: MULT1TAB74 PO (14:35)
[2020-06-17] MEDS ORDERED: CARV12.5 PO (14:35)
[2020-06-17] MEDS ORDERED: LOSA100T50 PO (14:35)
--- NOTE | 2020-06-17 15:31 | REPVR ---
PROCEDURE INFORMATION: Exam: CT Chest Without Contrast Exam date and time: 06/17/2020 2:54 PM Age: 54 years old Clinical indication: Other: Hypotension, syncope TECHNIQUE: Imaging protocol: Computed tomography of the chest without contrast. Radiation optimization: All CT scans at this facility use at least one of these dose optimization techniques: automated exposure control; mA and/or kV adjustment per patient size (includes targeted exams where dose is matched to clinical indication); or iterative reconstruction. COMPARISON: CT Chest with contrast 12/24/2017 7:55 PM FINDINGS: Lungs: Minor interlobular septal thickening is noted in the lung apices, possibly representing interstitial edema. There is a nonspecific 5 mm pulmonary nodule in the left upper lobe, series 201, image 21 this appears new since the prior exam.For patients at low risk (minimal or absent history of smoking and of other known risk factors), no routine follow-up is indicated. For patients at high risk (history of smoking or of other known risk factors), consider optional CT Chest at 12 months. (Reference: Gregorio) Pleural space: Unremarkable. No pneumothorax. No pleural effusion. Heart: The heart is not enlarged. Coronary artery calcifications are present. There is no pericardial effusion. Aorta: Atherosclerotic calcifications are noted within the aortic arch. Lymph nodes: Unremarkable. No enlarged lymph nodes. Bones/joints: Chronic left 10th and 11th rib fractures are noted. Soft tissues: Unremarkable. IMPRESSION: 1. Possible mild interstitial edema 2. Chronic findings as discussed above. Electronically signed by: Wm Kiser On 06/17/2020 15:31:23 PM
[2020-06-17 15:53] LABS: C REACTIVE PROTEIN QUANTITATIV < 0.30 MG/DL (0.00-0.30); FREE THYROXINE INDEX 1.2 % (1.4-3.8); T UPTAKE 35 % (33-40); THYROXINE (T4) 3.5 UG/DL (4.5-12.0)
--- NOTE | 2020-06-17 15:58 | REPVR ---
PROCEDURE INFORMATION: Exam: CT Abdomen And Pelvis Without Contrast Exam date and time: 06/17/2020 2:54 PM Age: 54 years old Clinical indication: Other: Hypotension, syncope TECHNIQUE: Imaging protocol: Computed tomography of the abdomen and pelvis without contrast. Radiation optimization: All CT scans at this facility use at least one of these dose optimization techniques: automated exposure control; mA and/or kV adjustment per patient size (includes targeted exams where dose is matched to clinical indication); or iterative reconstruction. COMPARISON: LIVER US 01/08/2020 8:36 AM FINDINGS: Liver: The liver appears mildly cirrhotic. Gallbladder and bile ducts: Normal. No calcified stones. No ductal dilation. Pancreas: Normal. No ductal dilation. Spleen: Normal. No splenomegaly. Adrenals: Normal. No mass. Kidneys and ureters: Normal. No hydronephrosis. Stomach and bowel: There is no evidence of a bowel obstruction. Extensive diverticulosis of the descending and sigmoid colon is present. There is no evidence of acute diverticulitis. Appendix: No evidence of appendicitis. Intraperitoneal space: Unremarkable. No free air. No significant fluid collection. Vasculature: Unremarkable. No abdominal aortic aneurysm. Lymph nodes: Unremarkable. No enlarged lymph nodes. Urinary bladder: The urinary bladder is moderately distended. Reproductive: Unremarkable as visualized. Bones/joints: Unremarkable. No acute fracture. Soft tissues: Unremarkable. IMPRESSION: 1. No acute abnormality. 2. Chronic findings as discussed above. Electronically signed by: Wm Kiser On 06/17/2020 15:58:38 PM
[2020-06-17] MEDS: NS 1,000 ML IV SCH (16:00)
[2020-06-17 16:17] LABS: ERYTHROCYTE SEDIMENTATION RATE 17 mm/hr (0-20)
[2020-06-17 17:08] VITALS: BP 117/73
[2020-06-17] MEDS ORDERED: LORazepam 2 MG/ML VIAL IV PRN (18:00)
[2020-06-17 18:01] VITALS: BP 119/63
[2020-06-17 19:00] VITALS: BP 142/80
[2020-06-17 21:22] VITALS: BP 148/84
[2020-06-18] VITALS (7 sets, daily range): BP systolic 120–171; BP diastolic 76–98
[2020-06-18] MEDS: NS 1,000 ML IV SCH (03:50)
[2020-06-18 04:41] LABS: HEMATOCRIT 31.1 % (42.0-52.0); HEMOGLOBIN 10.1 g/dl (13.5-17.5); MEAN CORPUSCULAR HEMOGLOBIN 30.1 pg (27.0-33.0); MEAN CORPUSCULAR HGB CONC 32.5 g/dl (32.0-36.5); MEAN CORPUSCULAR VOLUME 92.8 fl (80.0-96.0); PLATELET COUNT, AUTOMATED 151 10^3/uL (150-450); RED BLOOD COUNT 3.35 10^6/uL (4.30-6.10); WHITE BLOOD COUNT 7.4 10^3/uL (4.0-10.0)
[2020-06-18 05:06] LABS: ALBUMIN 3.2 GM/DL (3.2-5.2); ALT/SGPT 44 U/L (12-78); BILIRUBIN,TOTAL 0.5 MG/DL (0.2-1.0); BLOOD UREA NITROGEN 24 MG/DL (7-18); CALCIUM LEVEL 8.3 MG/DL (8.5-10.1); CARBON DIOXIDE LEVEL 18 MEQ/L (21-32); CHLORIDE LEVEL 118 MEQ/L (98-107); CREATININE FOR GFR 1.32 MG/DL (0.70-1.30); GLOMERULAR FILTRATION RATE > 60.0 (>56); GLUCOSE, FASTING 79 MG/DL (70-100); POTASSIUM SERUM 4.7 MEQ/L (3.5-5.1); SODIUM LEVEL 142 MEQ/L (136-145); TOTAL PROTEIN 6.2 GM/DL (6.4-8.2)
--- NOTE | 2020-06-18 06:56 | HPEPDOC ---
[facility] Medical History & Physical Date of Admission Jun 17, 2020 Date of Service: Jun 17, 2020 History and Physical CHIEF COMPLAINT: Syncope and collapse HISTORY OF PRESENT ILLNESS: 54-year-old male presents to hospital after syncopal episode at work. 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 Patient was in his usual state of health this morning, went to work and does not recall falling down. States he woke up to find himself on the floor. Witnesses state he was unconscious for about 30 seconds, without any seizure activity. Denies any previous episodes of syncope. States his morning was his usual routine. He skipped breakfast as usual last night. He states that he went to a [employer] where he drank "a lot" of alcohol. He denies any illicit drug use. He denies chest pain, headaches, changes in vision, shortness of breath, abdominal pain, nausea, vomiting or diarrhea. PAST MEDICAL HISTORY: #Hypertension #EtOH abuse #alcoholic liver disease #NAFLD #hypertriglyceridemia ALLERGIES: Please see below. REVIEW OF SYSTEMS: Negative except as per history and physical. HOME MEDICATIONS: Please see below. PHYSICAL EXAMINATION: VITAL SIGNS: See below General: NAD, lying comfortably in bed, somewhat flat affect HEENT: NC, small laceration occipital area of cranium, EOMI, PERRL Lungs: CTA B/L Heart: +S1S2, RRR, soft systolic murmur Abd: soft, NT, +BS Ext: no edema LABORATORY DATA: See below. MICROBIOLOGY: Please see below. ASSESSMENT: 54-year-old male with past medical history of hypertension and alcohol abuse presents for syncopal episode this morning. PLAN: #syncope - seizure precautions - suspect dehydration - CTH unremarkable #hypotension - unclear etiology - possible dehydration - states he typically has a hard time controlling his blood pressure - concern for bleed given syncope/fall - CT chest/abd/pelvis pending - echo pending - aggressive hydration #KAIA - likely prerenal - as above - IV fluids - UA pending - CT abd/pelvis pending #EtOH abuse - [facility] protocol - MVI/folate/thiamine #DVT prophylaxis - mechanical Vital Signs Vital Signs Date Time Temp Pulse Resp B/P (MAP) Pulse Ox O2 Delivery O2 Flow Rate FiO2 06/18/20 04:00 99.2 87 20 171/88 (115) 97 Room Air Laboratory Data Labs 24H Laboratory Tests 2 06/17/20 12:09: Bedside Glucose (Misc Panel) 86 06/17/20 12:11: Immature Granulocyte % (Auto) 0.9, Neutrophils (%) (Auto) 61.0, Lymphocytes (%) (Auto) 28.7, Monocytes (%) (Auto) 6.8H, Eosinophils (%) (Auto) 1.8, Basophils (%) (Auto) 0.8, Neutrophils # (Auto) 4.7, Lymphocytes # (Auto) 2.2, Monocytes # (Auto) 0.5, Eosinophils # (Auto) 0.1, Basophils # (Auto) 0.1, Nucleated Red Blood Cells % (auto) 0.0, Erythrocyte Sedimentation Rate 17, Prothrombin Time 15.0H, Prothromb Time International Ratio 1.15, Blood Gas Bicarbonate Standard 15.9, Venous Blood pH 7.198L, Venous Blood Partial Pressure CO2 45.8, Venous Blood Partial Pressure O2 47.2, Venous Blood Total Carbon Dioxide 18.8L, Venous Blood HCO3 17.4L, Venous Blood Oxygen Saturation 73.5, Venous Blood Base Excess -10.3L, Magnesium Level 2.0, Total Bilirubin 0.5, Direct Bilirubin 0.2, Aspartate Amino Transf (AST/SGOT) 41H, Alanine Aminotransferase (ALT/SGPT) 57, Alkaline Phosphatase 113, Total Creatine Kinase 125, Creatine Kinase MB 1.4, Creatine Kinase MB Relative Index 1.12, C-Reactive Protein, Quantitative < 0.30, Total Protein 6.8, Albumin 3.6, Albumin/Globulin Ratio 1.1, Thyroid Stimulating Hormone (TSH) 4.290H, Free Thyroxine 0.66L, Free Thyroxine Index 1.2L, Thyroxine (T4) 3.5L, Triiodothyronine (T3) Uptake 35, Ethyl Alcohol Level 0.178H 06/17/20 12:14: POC Glucose (Misc Panel) 87, POC Sodium (Misc Panel) 134L, POC Potassium (Misc Panel) 4.8, POC Chloride (Misc Panel) 105, POC Total CO2 (Misc Panel) 20.0L, POC Blood Urea Nitrogen (Misc Panel 31H, POC Ionized Calcium (Misc Panel) 4.9, POC Creatinine (Misc Panel) 2.4H, POC Hematocrit (Misc Panel) 33.0L 06/17/20 12:19: POC Troponin I (Misc) 0.00 06/17/20 13:02: Lactic Acid Level 1.7 06/18/20 04:15: Nucleated Red Blood Cells % (auto) 0.0, Anion Gap 6L, Glomerular Filtration Rate > 60.0, Calcium Level 8.3L, Total Bilirubin 0.5, Aspartate Amino Transf (AST/SGOT) 29, Alanine Aminotransferase (ALT/SGPT) 44, Alkaline Phosphatase 109, Total Protein 6.2L, Albumin 3.2, Albumin/Globulin Ratio 1.1 06/18/20 05:05: Urine Color STRAW, Urine Appearance CLEAR, Urine pH 5.0, Urine Specific Mulga 1.009, Urine Protein NEGATIVE, Urine Glucose (UA) NEGATIVE, Urine Ketones NEGATIVE, Urine Blood NEGATIVE, Urine Nitrite NEGATIVE, Urine Bilirubin NEGATIVE, Urine Urobilinogen 0.2, Urine Leukocyte Esterase NEGATIVE, Urine WBC (Auto) 1, Urine RBC (Auto) 0, Urine Hyaline Casts (Auto) 0, Urine Bacteria (Auto) NEGATIVE, Urine Squamous Epithelial Cells 0, Urine Sperm (Auto) CBC/BMP Laboratory Tests 06/17/20 12:11 06/18/20 04:15 Microbiology Microbiology 06/17/20 Blood Culture, Received Pending 06/17/20 Blood Culture, Received Pending Home Medications Scheduled Amlodipine Besylate (Amlodipine Besylate) 10 Mg Tab, 10 MG PO DAILY Atorvastatin Calcium (Atorvastatin Calcium) 40 Mg Tab, 40 MG PO DAILY Carvedilol (Carvedilol) 12.5 Mg Tablet, 12.5 MG PO BID Losartan Potassium (Losartan Potassium) 100 Mg Tablet, 100 MG PO DAILY Multivitamin (Multivitamins) 1 Each Tablet, 1 TAB PO DAILY Allergies Coded Allergies: No Known Allergies (Unverified , 10/30/18) A-FIB/CHADSVASC A-FIB History Current/History of A-Fib/PAF?: No GABRIELLE PEREZ MD Jun 18, 2020 06:56
--- NOTE | 2020-06-18 07:54 | ECGEPIP ---
[facility] - ED Test Date: 2020-06-17 Pat Name: JACE VALENCIA Department: Room: - Gender: Male Entry Level Account Representative: LEONARDO : 1965 Requested By: Hazel Castellanos Order Number: [id number] Reading MD: Billy Rosenberg Measurements Intervals [place] Rate: 62 P: 51 UT: 171 QRS: 5 QRSD: 97 T: 19 QT: 383 QTc: 390 Interpretive Statements SINUS RHYTHM POSSIBLE RIGHT VENTRICULAR CONDUCTION DELAY Nonspecific ST abnormalities Electronically Signed on 06-18-2020 7:54:48 EDT by Billy Rosenberg
[2020-06-18] MEDS ORDERED: FOLI1TAB11 PO (08:57)
[2020-06-18] MEDS ORDERED: THIA100TA PO (08:57)
[2020-06-18] MEDS ORDERED: FOLIC ACID 1 MG TAB PO SCH (09:00)
[2020-06-18] MEDS ORDERED: LOSARTAN 50MG TABLET PO SCH (09:00)
[2020-06-18] MEDS ORDERED: THIAMINE 100 MG TAB PO SCH (09:00)
[2020-06-18] MEDS ORDERED: CARVedilol 12.5 MG TAB PO SCH (09:00)
--- NOTE | 2020-06-18 12:07 | REP ---
INDICATION: syncope COMPARISON: None. TECHNIQUE: B-mode durant scale and color Doppler evaluation using linear high frequency transducer Findings: FINDINGS: Two-dimensional B-mode durant scale and color images demonstrate normal arterial lumen with laminar flow and no appreciable narrowing. Color Doppler interrogation demonstrates normal arterial wave patterns and velocities with no significant spectral broadening. Normal flow direction is appreciated in the bilateral vertebral arteries. ICA peak systolic velocity: Right 97.2 cm/s; Left 78.7 cm/s ICA diastolic velocity: Right 40.5 cm/s; Left 30.1 cm/s ECA peak systolic velocity: Right 96.6 cm/s; Left 96.0 cm/s CCA peak systolic velocity: Right 68.9 cm/s; Left 96.6 cm/s ICA/CCA ratio: Right 1.4 cm/s; Left 0.8 cm/s IMPRESSION: No hemodynamically significant areas of narrowing or stenosis appreciated. Based on set standards narrowing falls within the normal/less than 50% range. <Electronically signed by Scotty Kaiser > 06/18/20 [id number]
--- NOTE | 2020-06-18 13:38 | DS.PDOC ---
Discharge Summary General Date of Admission Jun 17, 2020 at 14:25 Date of Discharge 06/18/20 Discharge Summary PROCEDURES PERFORMED DURING STAY: [None]. ADMITTING DIAGNOSES: #syncope #hypotension DISCHARGE DIAGNOSES: #EtOH abuse #syncope #history of hypertension #alcoholic liver disease #NAFLD #hypertriglyceridemia COMPLICATIONS/CHIEF COMPLAINT: Syncope. HISTORY OF PRESENT ILLNESS: 54-year-old male presents to hospital after syncopal episode at work. 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 Patient was in his usual state of health this morning, went to work and does not recall falling down. States he woke up to find himself on the floor. Witnesses state he was unconscious for about 30 seconds, without any seizure activity. Denies any previous episodes of syncope. States his morning was his usual routine. He skipped breakfast as usual last night. He states that he went to a alliance party where he drank "a lot" of alcohol. He denies any illicit drug use. He denies chest pain, headaches, changes in vision, shortness of breath, abdominal pain, nausea, vomiting or diarrhea. HOSPITAL COURSE: Patient was admitted for further evaluation and treatment. Patient was admitted to ICU due to his hypotension. He did eventually respond well to IV fluids. His hypotension was deemed to be secondary to dehydration. He was monitored on telemetry for over 24 hours with [address]. [address] head, chest, abdomen and pelvis did not reveal any acute pathology. Transthoracic echocardiogram was unrevealing. This was his first syncopal episode. Ultrasound of his carotid arteries was within normal limits. He is being discharged with outpatient follow-up. DISCHARGE MEDICATIONS: Please see below. ALLERGIES: Please see below. PHYSICAL EXAMINATION ON DISCHARGE: VITAL SIGNS: Please see below. GENERAL: NAD HEENT: NC, small laceration occipital area of cranium - staple in place, EOMI, PERRL Lungs: CTA B/L Heart: +S1S2, RRR, soft systolic murmur Abd: soft, NT, +BS Ext: no edema LABORATORY DATA: Please see below. ACTIVITY: [As tolerated]. DISPOSITION: Discharge home DISCHARGE INSTRUCTIONS: #follow up PCP in 3-5 days - removal of staple DISCHARGE CONDITION: [Stable]. TIME SPENT ON DISCHARGE: 35 minutes. Vital Signs/I&Os Vital Signs Date Time Temp Pulse Resp B/P (MAP) Pulse Ox O2 Delivery O2 Flow Rate FiO2 06/18/20 12:00 98.9 89 19 141/90 (107) 99 Room Air I&O- Last 24 Hours up to 6 AM 06/18/20 05:59 Intake Total 5381.2 ml Output Total 1875 ml Balance 3506.2 ml Laboratory Data Labs 24H Laboratory Tests 2 06/18/20 04:15: Nucleated Red Blood Cells % (auto) 0.0, Anion Gap 6L, Glomerular Filtration Rate > 60.0, Calcium Level 8.3L, Total Bilirubin 0.5, Aspartate Amino Transf (AST/SGOT) 29, Alanine Aminotransferase (ALT/SGPT) 44, Alkaline Phosphatase 109, Total Protein 6.2L, Albumin 3.2, Albumin/Globulin Ratio 1.1 06/18/20 05:05: Urine Color STRAW, Urine Appearance CLEAR, Urine pH 5.0, Urine Specific [place] 1.009, Urine Protein NEGATIVE, Urine Glucose (UA) NEGATIVE, Urine Ketones NEGATIVE, Urine Blood NEGATIVE, Urine Nitrite NEGATIVE, Urine Bilirubin NEGATIVE, Urine Urobilinogen 0.2, Urine Leukocyte Esterase NEGATIVE, Urine WBC (Auto) 1, Urine RBC (Auto) 0, Urine Hyaline Casts (Auto) 0, Urine Bacteria (Auto) NEGATIVE, Urine Squamous Epithelial Cells 0, Urine Sperm (Auto) CBC/BMP Laboratory Tests 06/18/20 04:15 Microbiology Microbiology 06/17/20 Blood Culture, Received Pending 06/17/20 Blood Culture, Received Pending Discharge Medications Scheduled Amlodipine Besylate (Amlodipine Besylate) 10 Mg Tab, 10 MG PO DAILY, (Reported) Atorvastatin Calcium (Atorvastatin Calcium) 40 Mg Tab, 40 MG PO DAILY, (Reported) Carvedilol (Carvedilol) 12.5 Mg Tablet, 12.5 MG PO BID, (Reported) Folic Acid (Folic Acid) 1 Mg Tablet, 1 MG PO DAILY Losartan Potassium (Losartan Potassium) 100 Mg Tablet, 100 MG PO DAILY, (Reported) Multivitamin (Multivitamins) 1 Each Tablet, 1 TAB PO DAILY, (Reported) Thiamine Hcl (Vitamin B-1) 100 Mg Tablet, 100 MG PO DAILY Allergies Coded Allergies: No Known Allergies (Unverified , 10/30/18) GABRIELLE PEREZ MD Jun 18, 2020 13:38
[2020-06-18] MEDS ORDERED: ATORVASTATIN 20 MG TAB PO SCH (21:00)
[2020-06-18] MEDS ORDERED: amLODIPine 10 MG TAB PO SCH (21:00)
--- NOTE | 2020-06-20 09:51 | ECHO ---
DATE OF PROCEDURE: 06/17/2020 Age: 54 Gender: Male Height: 170 cm Weight: 72 kg REFERRING PHYSICIAN: Billy Rocha NP INDICATION: Syncope MEASUREMENTS: Aorta 3.2 LA 3.5 IVS 1.2 LV 3.4 LVPW 1.2 Mitral E wave velocity 79, A wave 92 E prime septal 8.1 E prime lateral 12.1 IVC 1.5 FINDINGS: The study is of acceptable technical quality. The patient is in sinus rhythm. Left ventricle has normal size and hyperdynamic systolic function, estimated left ventricular ejection fraction (LVEF) 70 to 75%. Mild left ventricular hypertrophy is noted. Right ventricle has normal size and systolic function. Both atria appear grossly normal. Aortic valve is mildly sclerotic, but has three cusps and preserved mobility. I cannot completely rule out the possibility of small vegetation. Mitral valve appears normal. The same applies for tricuspid and pulmonic valves. No pericardial effusion is noted. Inferior vena cava is of normal size and appropriately collapses with inspiration indicative of likely normal central venous pressure. Aortic root and aortic arch appear normal. Abdominal aorta was not well visualized. Doppler interrogation reveals no aortic stenosis or insufficiency. Also mitral valve is functionally competent. There is trace tricuspid insufficiency with calculated pulmonary artery pressure approximately 30 mmHg indicative of borderline pulmonary hypertension. Pulmonic valve is functionally competent. Mitral inflow pattern and tissue Doppler imaging of mitral annulus reveals grade 1 diastolic dysfunction. CONCLUSIONS: 1. Study is of acceptable technical quality. The patient is in sinus rhythm. 2. Normal LV size with mild left ventricular hypertrophy (LVH), hyperdynamic LV systolic function and grade 1 diastolic dysfunction. 3. Aortic sclerosis without stenosis of insufficiency. Cannot rule out the presence of small vegetation on aortic valve. 4. No additional valvular abnormalities. 5. Normal central venous pressure and likely normal pulmonary pressure or borderline pulmonary hypertension. 6. No findings to explain syncopal evident. MTDD
== END 2020-06-18 14:39 | disposition home or self-care (01) | DRG 422 ==
LOC: EDBD 11:50 → M ED 11:50 → M ED INP 14:25 → ENRESERV 16:30 → M ICU 17:00
PROVIDERS: ADMIT Internal Medicine; ATTEND Internal Medicine
DX: E86.0 Dehydration (principal); I95.9 Hypotension, unspecified; K70.9 Alcoholic liver disease, unspecified; I10 Essential (primary) hypertension; F10.10 Alcohol abuse, uncomplicated; E78.1 Pure hyperglyceridemia; R55 Syncope and collapse; Z79.899 Other long term (current) drug therapy

== ENCOUNTER 2020-08-29 19:34 | Inpatient (IN) | payer BC, OTHER ==
[~2020-08-29] VITALS: Ht 170.2 cm; Wt 71.1 kg
[~2020-08-29 19:34] MED LIST changes: -THIA100T7 PO; -VITA200010; -VITA200038 PO
[2020-08-29] MEDS ORDERED: VITA200010 (19:46)
[2020-08-29 20:51] LABS: ALBUMIN 4.2 GM/DL (3.2-5.2); BILIRUBIN,DIRECT 0.3 MG/DL (0.0-0.2); BILIRUBIN,TOTAL 0.6 MG/DL (0.2-1.0); CALCIUM LEVEL 9.4 MG/DL (8.5-10.1); CREATININE FOR GFR 2.93 MG/DL (0.70-1.30); ETHYL ALCOHOL (ETHANOL) 0.084 % (0.000-0.010); GLOMERULAR FILTRATION RATE 24.1 (>56); POTASSIUM SERUM 4.4 MEQ/L (3.5-5.1); TOTAL PROTEIN 8.6 GM/DL (6.4-8.2)
[2020-08-29] MEDS ORDERED: NS 1,000 ML IV ONE (21:30)
[2020-08-29] MEDS ORDERED: MAALOX 30 ML SUSP *UDC PO PRN (21:45)
[2020-08-29] MEDS ORDERED: MOM 30ML SUSPENSION UDC PO PRN (21:45)
[2020-08-29] MEDS ORDERED: ACETAMINOPHEN TAB 650MG DOSE (2X325MG) PO PRN (21:45)
[2020-08-29] MEDS ORDERED: LORazepam 2 MG TAB PO PRN (21:45)
[2020-08-29] MEDS ORDERED: FOLI1TAB11 PO (21:52)
[2020-08-29] MEDS ORDERED: THIA100T7 PO (21:52)
[2020-08-29] MEDS ORDERED: VITA200038 PO (21:52)
[2020-08-29 22:07] LABS: OSMOLALITY URINE 508 MOSM/KG (500-800)
--- NOTE | 2020-08-29 22:08 | REPVR ---
PROCEDURE INFORMATION: Exam: US Retroperitoneal Limited, Kidneys Exam date and time: 08/29/20 (9:35pm) Age: 55 years old Clinical indication: New onset renal failure. Abnormal blood work. TECHNIQUE: Imaging protocol: Real-time ultrasound of the retroperitoneum with image documentation. Examination was focused on the kidneys. COMPARISON: US LIVER of 01/08/20 FINDINGS: RIGHT KIDNEY --- The right kidney measures 9.1 cm in length. No hydronephrosis nor mass. No upper tract stones. LEFT KIDNEY --- The left kidney measures 9.9 cm in length. No hydronephrosis nor mass. No upper tract stones. Minimal fluid adjacent to the left lower renal pole. URINARY BLADDER --- No significant pathology. No stones nor mass. IMPRESSION: Each kidney measures approx. 9-10 cm in length. No hydronephrosis. No renal mass. Minimal left perinephric fluid (adjacent to the left lower renal pole), of uncertain significance. Electronically signed by: Loli Harrison On 08/29/2020 22:08:15 PM
[2020-08-29 22:09] LABS: APPEARANCE, URINE HAZY (CLEAR); BACTERIA, URINE AUTO NEGATIVE (NEGATIVE); BILIRUBIN, URINE AUTO NEGATIVE (NEGATIVE); BLOOD, URINE BLOOD 1+ (NEGATIVE); COLOR, URINE YELLOW (YELLOW); GLUCOSE, URINE (UA) AUTO 1+ mg/dL (NEGATIVE); KETONE, URINE AUTO NEGATIVE (NEGATIVE); LEUKOCYTE ESTERASE, URINE AUTO NEGATIVE (NEGATIVE); MUCUS, URINE SMALL (NEGATIVE); NITRITE, URINE AUTO NEGATIVE (NEGATIVE); PROTEIN, URINE AUTO 1+ mg/dL (NEGATIVE); RBC, URINE AUTO 0 /HPF (0-3); SPECIFIC GRAVITY URINE AUTO 1.015 (1.002-1.035); SQUAMOUS EPITHELIAL CELL UR AU 0 /HPF (0-6); UROBILINOGEN, URINE AUTO 0.2 mg/dL (0.0-2.0); WBC, URINE AUTO 1 /HPF (0-3)
[2020-08-29 22:11] LABS: MAGNESIUM LEVEL 2.4 MG/DL (1.8-2.4); URIC ACID 8.1 MG/DL (3.5-7.2)
[2020-08-29 22:21] LABS: PTH INTACT 34.8 PG/ML (18.5-88.0)
[2020-08-29 22:28] LABS: RSV AMPLIFICATION NEGATIVE (NEGATIVE)
[2020-08-29 22:29] LABS: AMPHETAMINES LEVEL URINE NEGATIVE (NEGATIVE); BARBITURATES URINE NEGATIVE (NEGATIVE); BENZODIAZEPINES URINE NEGATIVE (NEGATIVE); CANNABINOIDS URINE NEGATIVE (NEGATIVE); COCAINE METABOLITE URINE NEGATIVE (NEGATIVE); METHADONE URINE NEGATIVE (NEGATIVE); OPIATES URINE NEGATIVE (NEGATIVE); PHENCYCLIDINE URINE NEGATIVE (NEGATIVE); PHOSPHOROUS,RANDOM URINE 51.3 MG/DL; POTASSIUM RANDOM URINE 28.8 MEQ/L; SODIUM,RANDOM URINE 43 MEQ/L; TOTAL PROTEIN,RANDOM URINE 73.9 MG/DL (0.0-12.0)
--- NOTE | 2020-08-29 23:59 | HPEPDOC ---
[facility] Medical History & Physical Date of Admission Aug 29, 2020 Date of Service: Aug 29, 2020 Primary Care Physician: CATHIE RUIZ MD Attending Physician: MOO CERVANTES MD History and Physical TIME OF SERVICE: 1030pm CHIEF COMPLAINT: sent by PCP HISTORY OF PRESENT ILLNESS: This 55 yr old M came to the hospital because his PCP told him he had abnormal renal blood work. The patient denied having any n/v/d/f/c, denied having itchy skin and denied noticing that his food tastes different. On average his BP runs from the 130s to the 150s. He added that he has seen Dr.W Herring about his kidneys in the past and his next appointment with her is in early Sep. REVIEW OF SYSTEMS: 12-point review of systems negative except as listed in HPI PAST MEDICAL/ SURGICAL HISTORY: Alcoholic liver cirrhosis & NAFLD Chronic HTN DLP Chronic HFpEF (aka D-CHF) Right cataract surgery Unspecified surgical procedures on his right wrist, right hallux SOCIAL HISTORY: He doesnt smoke or use recreational drugs He drinks 3 beers a day FAMILY HISTORY: Mother DM, CAD/CABG, HTN ALLERGIES: Please see below. HOME MEDICATIONS: Please see below. PHYSICAL EXAMINATION: Vital Signs Date Time Temp Pulse Resp B/P (MAP) Pulse Ox O2 Delivery O2 Flow Rate FiO2 08/29/20 19:36 98.7 86 18 151/92 (111) 97 Room Air GENERAL APPEARANCE: well nourished /well developed/NAD HEENT: EOMI/ mask covering nose and mouth CARDIOVASCULAR: RRR/NMRG / +1 BLE edema LUNGS: CTAB on RA ABDOMEN: soft & NT w palpation MUSCULOSKELETAL: MARIPOSA x 4 INTEGUMENT: no excoriations NEUROLOGICAL: speech not dysarthric PSYCHIATRIC: A&Ox 3 / able to understand and follow commands LABORATORY DATA: Laboratory Tests 08/29/20 20:08 Laboratory Tests 2 08/29/20 20:08: Anion Gap 8, Glomerular Filtration Rate 24.1L, Uric Acid 8.1H, Calcium Level 9.4, Magnesium Level 2.4, Total Bilirubin 0.6, Direct Bilirubin 0.3H, Aspartate Amino Transf (AST/SGOT) 128H, Alanine Aminotransferase (ALT/SGPT) 110H, Alkaline Phosphatase 213H, Total Creatine Kinase 118, Total Protein 8.6H, Albumin 4.2, Albumin/Globulin Ratio 1.0, Parathyroid Hormone (Intact) 34.8, Ethyl Alcohol Level 0.084H, Complement C3 92, Complement C4 17 08/29/20 21:43: Coronavirus (COVID-19)(PCR) NEGATIVE, Influenza Type A (RT-PCR) NEGATIVE, Influenza Type B (RT-PCR) NEGATIVE, Respiratory Syncytial Virus (PCR) NEGATIVE 08/29/20 21:53: Erythrocyte Sedimentation Rate 37H 08/29/20 21:54: Urine Color YELLOW, Urine Appearance HAZY, Urine pH 5.0, Urine Specific [place] 1.015, Urine Protein 1+H, Urine Glucose (Auto)(UA) 1+H, Urine Ketones (Auto) NEGATIVE, Urine Blood 1+H, Urine Nitrite NEGATIVE, Urine Bilirubin NEGATIVE, Urine Urobilinogen 0.2, Urine Leukocyte Esterase (Auto) NEGATIVE, Urine WBC (Auto) 1, Urine RBC (Auto) 0, Urine Hyaline Casts (Auto) 10, Urine Bacteria (Auto) NEGATIVE, Urine Squamous Epithelial Cells 0, Urine Mucus (Auto) SMALL, Urine Sperm (Auto) , Urine Random Osmolality 508, Urine Random Total Protein 73.9H, Urine Random Sodium 43, Urine Random Potassium 28.8, Urine Random Phosphorus 51.3, Urine Opiates Screen NEGATIVE, Urine Methadone Screen NEGATIVE, Urine Barbiturates Screen NEGATIVE, Urine Phencyclidine Screen NEGATIVE, Urine Amphetamines Screen NEGATIVE, Urine Benzodiazepines Screen NEGATIVE, Urine Cocaine Metabolite Screen NEGATIVE, Urine Cannabinoids Screen NEGATIVE IMAGING: Renal US IMPRESSION: Each kidney measures approx. 9-10 cm in length. No hydronephrosis. No renal mass.Minimal left perinephric fluid (adjacent to the left lower renal pole), of uncertain significance. MICROBIOLOGY: n/a ASSESSMENT: is a 55 yr old w a hx of HTN, HFpEF, alcoholic liver cirrhosis & NAFLD who was sent for management of KAIA on CKDII. PLAN: 1 KAIA on CKD II Cause TBD Based on the size of the kidneys on the US there is evidence of CKD It is unclear what his baseline Cr is Plan: admit to medical floor / f/u on records from PCP on renal function / monitor UOP / IVF / f/u CK, PTH, Phosphorus, Ulytes for FENa or FEUrea and microscopic analysis of urine / hold losartan 2. Alcoholic liver cirrhosis & NAFLD Hep B&C neg in 2019 Plan: f/u w PCP for surveillance 3. Chronic HTN / Chronic HFpEF Euvolemic Plan: c/w Coreg / hold losartan / day time team may consider starting amlodipine 4. DLP Plan: Atorvastatin 5.Alcohol abuse Plan: seizure precautions / fall precautions / Ativan per [facility] protocol Thiamine 100mg daily, Folic acid 1mg daily, MVI DVT Px w SCDs b/c Urvashi prediction score = 1 point Dispo: home after more than 2 midnights stay Home Medications Scheduled Atorvastatin Calcium (Atorvastatin Calcium) 40 Mg Tab, 40 MG PO DAILY Carvedilol (Carvedilol) 12.5 Mg Tablet, 12.5 MG PO BID Cholecalciferol (Vitamin D3) (Vitamin D3) 50 Mcg Tablet, 50 MCG PO DAILY Folic Acid (Folic Acid) 1 Mg Tablet, 1 MG PO DAILY Losartan Potassium (Losartan Potassium) 100 Mg Tablet, 100 MG PO DAILY Thiamine HCl (Thiamine HCl) 100 Mg Tablet, 100 MG PO DAILY Allergies Coded Allergies: No Known Allergies (Unverified , 10/30/18) A-FIB/CHADSVASC A-FIB History Current/History of A-Fib/PAF?: No Current PO Anticoag Therapy: No MOO CERVANTES MD Aug 29, 2020 23:59
[2020-08-30] MEDS: THIAMINE 100 MG TAB PO SCH ×3 (00:14→21:10)
[2020-08-30] MEDS: NS 1,000 ML IV SCH ×5 (00:15→21:11)
[2020-08-30 07:00] LABS: HEMATOCRIT 32.2 % (42.0-52.0); HEMOGLOBIN 10.6 g/dl (13.5-17.5); MEAN CORPUSCULAR HGB CONC 32.9 g/dl (32.0-36.5); MEAN CORPUSCULAR VOLUME 94.2 fl (80.0-96.0); PLATELET COUNT, AUTOMATED 135 10^3/uL (150-450); RED BLOOD COUNT 3.42 10^6/uL (4.30-6.10); WHITE BLOOD COUNT 6.7 10^3/uL (4.0-10.0)
[2020-08-30 07:28] LABS: CALCIUM LEVEL 7.8 MG/DL (8.5-10.1); CREATININE FOR GFR 2.15 MG/DL (0.70-1.30); GLOMERULAR FILTRATION RATE 34.4 (>56); PHOSPHORUS LEVEL 3.4 MG/DL (2.5-4.9); POTASSIUM SERUM 4.7 MEQ/L (3.5-5.1)
[2020-08-30 08:30] VITALS: BP 143/88
[2020-08-30] MEDS: FOLIC ACID 1 MG TAB PO SCH (09:51)
[2020-08-30] MEDS: MULTIVITAMINS/MINERALS THERAP 1 TAB PO SCH (09:51)
[2020-08-30] MEDS: CARVedilol 12.5 MG TAB PO SCH ×2 (09:51→21:11)
[2020-08-30] MEDS: ATORVASTATIN 20 MG TAB PO SCH (09:52)
[2020-08-30 10:33] VITALS: BP 138/92
[2020-08-30 14:00] VITALS: BP 107/68
[2020-08-30 16:30] VITALS: BP 129/74
--- NOTE | 2020-08-30 21:15 | IPNPDOC ---
Subjective Date Seen The patient was seen on 08/30/20. Subjective Chief Complaint/HPI Mr. Sanchez is a 55 year old male here with KAIA on CKD. This morning, denies any fever, chest pain, dyspnea, abdominal pain, or dysuria. Renal function still not at goal. Continue with hydration Objective Physical Examination General Exam: Positive: Alert, Cooperative Eye Exam: Positive: EOMI; Negative: Sclera icteric ENT Exam: Positive: Atraumatic Neck Exam: Positive: Supple Chest Exam: Positive: Clear to auscultation; Negative: Rales, Rhonchi, Wheezing Heart Exam: Positive: Rate Normal, Regular Rhythm Abdomen Exam: Positive: Normal bowel sounds, Soft; Negative: Tenderness Extremity Exam: Negative: Edema Neuro Exam: Positive: Cranial Nerves 3-12 NL Psych Exam: Positive: Mental status NL, Mood NL Assessment /Plan Assessment Mr. Sanchez is a 55 year old male here with KAIA on CKD. Baseline creatinine joshua round 1.3, but on admission, creatine was 2.93 (3.63 on outpatient labs). Will continue with IV hydration and monitoring renal function Plan/VTE VTE Prophylaxis Ordered?: Yes Plan 1. KAIA on CKD II -Unknown etiology -Creatine on admission was 2.93 (3.63 in outpatient labs) -Baseline creatinine suspected to be 1.3 -IVF and supportive care -Hold losartan 2. Alcoholic liver cirrhosis and NAFLD -Follow with PCP for surveillance 3. Hypertension -Blood pressure acceptable -Continue with Coreg 4. DLP -continue atorvastatin 5. Alcohol abuse -[facility] protocol -Thiamine, folic acid, MVI 6. DVT ppx -SCD and TEDs VS, I&O, 24H, Fishbone Vital Signs/I&O Vital Signs Date Time Temp Pulse Resp B/P (MAP) Pulse Ox O2 Delivery O2 Flow Rate FiO2 08/30/20 16:30 67 129/74 08/30/20 14:00 97.3 17 97 Room Air I&O- Last 24 Hours up to 6 AM 08/30/20 06:00 Intake Total 1000 ml Balance 1000 ml Laboratory Data 24H LABS Laboratory Tests 2 08/29/20 21:43: Coronavirus (COVID-19)(PCR) NEGATIVE, Influenza Type A (RT-PCR) NEGATIVE, Influenza Type B (RT-PCR) NEGATIVE, Respiratory Syncytial Virus (PCR) NEGATIVE 08/29/20 21:53: Erythrocyte Sedimentation Rate 37H 12/28/20 21:54: Urine Color YELLOW, Urine Appearance HAZY, Urine pH 5.0, Urine Specific [place] 1.015, Urine Protein 1+H, Urine Glucose (Auto)(UA) 1+H, Urine Ketones (Auto) NEGATIVE, Urine Blood 1+H, Urine Nitrite NEGATIVE, Urine Bilirubin NEGATIVE, Urine Urobilinogen 0.2, Urine Leukocyte Esterase (Auto) NEGATIVE, Urine WBC (Auto) 1, Urine RBC (Auto) 0, Urine Hyaline Casts (Auto) 10, Urine Bacteria (Auto) NEGATIVE, Urine Squamous Epithelial Cells 0, Urine Mucus (Auto) SMALL, Urine Sperm (Auto) , Urine Random Osmolality 508, Urine Random Total Protein 73.9H, Urine Random Sodium 43, Urine Random Potassium 28.8, Urine Random Phosphorus 51.3, Urine Opiates Screen NEGATIVE, Urine Methadone Screen NEGATIVE, Urine Barbiturates Screen NEGATIVE, Urine Phencyclidine Screen NEGATIVE, Urine Amphetamines Screen NEGATIVE, Urine Benzodiazepines Screen NEGATIVE, Urine Cocaine Metabolite Screen NEGATIVE, Urine Cannabinoids Screen NEGATIVE 08/30/20 06:50: Nucleated Red Blood Cells % (auto) 0.0, Anion Gap 7L, Glomerular Filtration Rate 34.4L, Calcium Level 7.8#L, Phosphorus Level 3.4, Total Creatine Kinase 97 CBC/BMP Laboratory Tests 08/30/20 06:50 JOSE MARIA DIGGS DO Aug 30, 2020 21:14
[2020-08-30 22:00] VITALS: BP_SYST 115; BP_SYST 147; BP_DIAS 73; BP_DIAS 83
[2020-08-31] MEDS: NS 1,000 ML IV SCH ×2 (04:15→13:39)
[2020-08-31 06:00] VITALS: BP 100/56
[2020-08-31 06:35] LABS: HEMATOCRIT 30.8 % (42.0-52.0); HEMOGLOBIN 9.8 g/dl (13.5-17.5); MEAN CORPUSCULAR HGB CONC 31.8 g/dl (32.0-36.5); MEAN CORPUSCULAR VOLUME 97.5 fl (80.0-96.0); PLATELET COUNT, AUTOMATED 104 10^3/uL (150-450); RED BLOOD COUNT 3.16 10^6/uL (4.30-6.10); WHITE BLOOD COUNT 5.2 10^3/uL (4.0-10.0)
[2020-08-31 07:06] LABS: CALCIUM LEVEL 7.7 MG/DL (8.5-10.1); CREATININE FOR GFR 1.44 MG/DL (0.70-1.30); GLOMERULAR FILTRATION RATE 54.6 (>56); MAGNESIUM LEVEL 1.6 MG/DL (1.8-2.4); POTASSIUM SERUM 4.3 MEQ/L (3.5-5.1)
[2020-08-31] MEDS: FOLIC ACID 1 MG TAB PO SCH (09:19)
[2020-08-31] MEDS: THIAMINE 100 MG TAB PO SCH (09:19)
[2020-08-31 09:20] VITALS: BP 127/82
[2020-08-31] MEDS: MULTIVITAMINS/MINERALS THERAP 1 TAB PO SCH (09:20)
[2020-08-31] MEDS: ATORVASTATIN 20 MG TAB PO SCH (09:20)
[2020-08-31] MEDS: CARVedilol 12.5 MG TAB PO SCH (09:20)
[2020-08-31 10:00] VITALS: BP 127/84
[2020-08-31 14:00] VITALS: BP 138/92
--- NOTE | 2020-08-31 23:18 | DS.PDOC ---
Discharge Summary General Date of Admission Aug 29, 2020 at 21:39 Date of Discharge Aug 31, 2020 Attending Physician: JOSE MARIA DIGGS DO Discharge Summary PROCEDURES PERFORMED DURING STAY: None ADMITTING DIAGNOSES: 1. KAIA on CKD II 2. Alcoholic liver cirrhosis 3. HTN 4. Diastolic CHF 5. Dyslipidemia 6. Alcohol abuse DISCHARGE DIAGNOSES: 1. KAIA on CKD II 2. Alcoholic liver cirrhosis 3. HTN 4. Diastolic CHF 5. Dyslipidemia 6. Alcohol abuse COMPLICATIONS/CHIEF COMPLAINT: Acute Kidney Injury Superimposed On Chronic Kidney. HISTORY OF PRESENT ILLNESS: Mr. Sanchez is a 55 year old male with CKD stage II who presents to the ED with abnormal blood work. On admission, he denied h aving any nausea, vomiting, diarrhea, fever, or chills. Outpatient lab work demonstrated a creatinine of 3.63 when baseline is around 1.3. HOSPITAL COURSE: Losartan was held and patient was given IVF. Creatinine started to improved. I spoke with the patient today about his KAIA. He denies NSAID use, but he believes that his increase in creatinine was from poor oral intake. When he works, he normally drinks large volumes of water throughout the day. During the holiday, he was off work and did not drink fluids. Encouraged oral hydration when he returns home. His renal function today was close to baseline. He denies any fever/chills, chest pain, dyspnea, abdominal pain, or dysuria. He felt well and was subsequently discharged home. DISCHARGE MEDICATIONS: Please see below. ALLERGIES: Please see below. PHYSICAL EXAMINATION ON DISCHARGE: VITAL SIGNS: Please see below. GENERAL: Comfortable, in no apparent distress HEENT: Head normocephalic, atraumatic, EOMI, sclera clear NECK: Supple CARDIOVASCULAR EXAMINATION: Regular rate and rhythm RESPIRATORY EXAMINATION: Lungs clear to auscultation bilaterally ABDOMINAL EXAMINATION: Soft, non-tender, normal bowel sounds EXTREMITIES: No pitting edema bilaterally SKIN: Warm and dry NEUROLOGICAL EXAMINATION: CN 3-12 grossly intact PSYCHIATRIC EXAMINATION: Normal mood and affect LABORATORY DATA: Please see below. IMAGING: (Radiologist impression) US renal Each kidney measures approx. 9-10 cm in length. No hydronephrosis. No renal mass. Minimal left perinephric fluid (adjacent to the left lower renal pole), of uncertain significance. PROGNOSIS: Good ACTIVITY: As tolerated. DIET: Renal diet DISCHARGE PLAN: Home DISPOSITION: , Self-Care. DISCHARGE INSTRUCTIONS: 1. Follow up with PCP within 7 days DISCHARGE CONDITION: Stable. Total time spent on discharge planning, discharge summary, and medication reconciliation: 40 minutes Vital Signs/I&Os Vital Signs Date Time Temp Pulse Resp B/P (MAP) Pulse Ox O2 Delivery O2 Flow Rate FiO2 08/31/20 14:00 97.8 67 16 138/92 (107) 98 Room Air I&O- Last 24 Hours up to 6 AM 08/31/20 06:00 Intake Total 2490 ml Output Total 0 ml Balance 2490 ml Laboratory Data Labs 24H Laboratory Tests 2 08/31/20 06:16: Nucleated Red Blood Cells % (auto) 0.0, Anion Gap 6L, Glomerular Filtration Rate 54.6L, Calcium Level 7.7L, Magnesium Level 1.6L CBC/BMP Laboratory Tests 08/31/20 06:16 Discharge Medications Scheduled Atorvastatin Calcium (Atorvastatin Calcium) 40 Mg Tab, 40 MG PO DAILY, (Reported) Carvedilol (Carvedilol) 12.5 Mg Tablet, 12.5 MG PO BID, (Reported) Cholecalciferol (Vitamin D3) (Vitamin D3) 50 Mcg Tablet, 50 MCG PO DAILY, (Reported) Folic Acid (Folic Acid) 1 Mg Tablet, 1 MG PO DAILY, (Reported) Losartan Potassium (Losartan Potassium) 100 Mg Tablet, 100 MG PO DAILY, (Reported) Thiamine HCl (Thiamine HCl) 100 Mg Tablet, 100 MG PO DAILY, (Reported) Allergies Coded Allergies: No Known Allergies (Unverified , 10/30/18) JOSE MARIA DIGGS DO Aug 31, 2020 23:18
== END 2020-08-31 18:04 | disposition home or self-care (01) | DRG 469 ==
LOC: M ED 19:34 → M ED INP 21:39 → ENRESERV 08-30 08:51 → M MSPAV 08-30 10:24
PROVIDERS: ADMIT Internal Medicine; ATTEND Internal Medicine
DX: N17.9 Acute kidney failure, unspecified (principal); I13.0 Hypertensive heart and chronic kidney disease with heart failure and stage 1 through stage 4 chronic kidney disease, or unspecified chronic kidney disease; I50.32 Chronic diastolic (congestive) heart failure; K70.30 Alcoholic cirrhosis of liver without ascites; N18.2 Chronic kidney disease, stage 2 (mild); E78.5 Hyperlipidemia, unspecified; Z79.899 Other long term (current) drug therapy

== ENCOUNTER → 2020-08-29 | Outpatient (REF) | payer OTHER ==
[~2020-08-29] MED LIST changes: +CARV12.5 PO; -FOLIC ACID 1 MG TAB PO SCH; +LOSA100T50 PO; +MULT1TAB74 PO; -ONDANSETRON 4MG/2ML VIAL As Ordered ONE; +THIA100T7 PO; +THIA100TA PO; +VITA200010; +VITA200038 PO
[2020-08-29 13:30] LABS: HEMATOCRIT 36.9 % (42.0-52.0); HEMOGLOBIN 11.6 g/dl (13.5-17.5); MEAN CORPUSCULAR HEMOGLOBIN 29.9 pg (27.0-33.0); MEAN CORPUSCULAR HGB CONC 31.4 g/dl (32.0-36.5); MEAN CORPUSCULAR VOLUME 95.1 fl (80.0-96.0); PLATELET COUNT, AUTOMATED 169 10^3/uL (150-450); RED BLOOD COUNT 3.88 10^6/uL (4.30-6.10); WHITE BLOOD COUNT 5.7 10^3/uL (4.0-10.0)
[2020-08-29 13:38] LABS: INR 1.06
[2020-08-29 13:39] LABS: PARTIAL THROMBOPLASTIN TIME 26.8 SECONDS (24.2-38.5)
[2020-08-29 14:01] LABS: ALBUMIN 3.9 GM/DL (3.2-5.2); BILIRUBIN,TOTAL 0.5 MG/DL (0.2-1.0); CALCIUM LEVEL 9.6 MG/DL (8.5-10.1); CREATININE FOR GFR 3.63 MG/DL (0.70-1.30); FREE T4 0.71 NG/DL (0.76-1.46); GLOMERULAR FILTRATION RATE 18.8 (>56); POTASSIUM SERUM 4.8 MEQ/L (3.5-5.1); THYROID STIMULATING HORMONE 3.42 uIU/ML (0.358-3.740)
== END ==
LOC: M SFHCPLAZ 10:57
PROVIDERS: ATTEND Family Medicine
DX: R79.89 Other specified abnormal findings of blood chemistry (principal); K70.9 Alcoholic liver disease, unspecified

== ENCOUNTER → 2020-09-06 | Outpatient (REF) | payer OTHER ==
[~2020-09-06] MED LIST changes: +THIA100T7 PO; +VITA200010; +VITA200038 PO
[2020-09-06 16:36] LABS: ALBUMIN 3.8 GM/DL (3.2-5.2); BILIRUBIN,TOTAL 0.5 MG/DL (0.2-1.0); CALCIUM LEVEL 8.6 MG/DL (8.5-10.1); CREATININE FOR GFR 1.96 MG/DL (0.70-1.30); GLOMERULAR FILTRATION RATE 38.3 (>56); POTASSIUM SERUM 5.1 MEQ/L (3.5-5.1); TOTAL PROTEIN 7.7 GM/DL (6.4-8.2)
== END ==
LOC: M SFHCPLAZ 13:47
PROVIDERS: ATTEND Family Medicine
DX: N17.9 Acute kidney failure, unspecified (principal); K70.9 Alcoholic liver disease, unspecified

== ENCOUNTER → 2020-10-05 | Outpatient (REF) | payer OTHER ==
[2020-10-05 17:45] LABS: FOLATE > 24.0 NG/ML; VITAMIN B12 LEVEL 508 PG/ML
== END ==
LOC: M LAB REF 16:50
PROVIDERS: ATTEND Nurse Practitioner Family
DX: D64.9 Anemia, unspecified (principal)

== ENCOUNTER → 2020-11-22 | Outpatient (REF) | payer OTHER | LOC: M SFHCPLAZ 14:23 | PROVIDERS: ATTEND Family Medicine | DX: K70.9 Alcoholic liver disease, unspecified (principal); D64.9 Anemia, unspecified; E78.2 Mixed hyperlipidemia; N18.9 Chronic kidney disease, unspecified ==

== ENCOUNTER → 2020-11-29 | Outpatient (REF) | payer OTHER | LOC: M SFHCPLAZ 13:45 | PROVIDERS: ATTEND Family Medicine | DX: K70.9 Alcoholic liver disease, unspecified (principal); N18.9 Chronic kidney disease, unspecified; D64.9 Anemia, unspecified; E78.2 Mixed hyperlipidemia ==

== ENCOUNTER → 2020-12-13 | Outpatient (CLI) | payer BC ==
--- NOTE | 2020-12-13 10:06 | REP ---
INDICATION: K70.9 ALCOHOLIC LIVER DX COMPARISON: 01/08/2020 TECHNIQUE: Real time durant scale ultrasound examination using curved array transducer. FINDINGS: Liver demonstrates coarsened echotexture without focal hepatic lesion identified. The pancreas is incompletely evaluated but visualized portions appear normal. The gallbladder is normal and without gallstones, wall thickening, or pericholecystic fluid. No biliary ductal dilatation is appreciated and the common bile duct measures 4.1 mm diameter. Right kidney is normal in reniform shape without hydronephrosis and measures 10.3 x 3.8 x 5.3 cm. No ascites in the visualized right upper quadrant. IMPRESSION: Coarsened hepatic echotexture suggesting cirrhosis. <Electronically signed by Scotty Kaiser > 12/13/20 1002
== END ==
LOC: M WHC 09:00
PROVIDERS: ATTEND Family Medicine
DX: K70.9 Alcoholic liver disease, unspecified (principal)

== ENCOUNTER → 2021-07-10 | Outpatient (REF) | payer OTHER | LOC: M SFHCPLAZ 09:05 | PROVIDERS: ATTEND Family Medicine | DX: Z53.20 Procedure and treatment not carried out because of patient's decision for unspecified reasons (principal) ==

== ENCOUNTER → 2021-07-25 | Outpatient (CLI) | payer BC, OTHER ==
[~2021-07-25] MED LIST changes: +ISOVUE-370 76% 100ML VIAL As Ordered ONE
--- NOTE | 2021-07-25 09:23 | REP ---
INDICATION: ELEVATED LFT / PULM NODULES US 1ST CT 2ND COMPARISON: None. TECHNIQUE: Real time durant scale ultrasound examination using curved array transducer. FINDINGS: Liver liver demonstrates mildly echogenic coarsened echotexture suggesting fatty infiltration. No focal hepatic lesions are identified. Pancreas is incompletely evaluated due to interposed bowel gas. The gallbladder is normal and without gallstones, wall thickening, or pericholecystic fluid. No biliary ductal dilatation is appreciated and the common bile duct measures 2.5 mm diameter. Right kidney is normal in reniform shape without hydronephrosis and measures 9.9 x 4.2 x 6.0 cm. No ascites in the visualized right upper quadrant. IMPRESSION: Hepatosteatosis suggested. <Electronically signed by Scotty Kaiser > 07/25/21 [id number]
--- NOTE | 2021-07-25 11:00 | REP ---
INDICATION: ELEVATED LFT / PULM NODULES US 1ST CT 2ND COMPARISON: None TECHNIQUE: Axial contrast enhanced images from the thoracic inlet to the upper abdomen with coronal and sagittal reformations using 75 ml Isovue 370 intravenous contrast material. This CT examination was performed using the following dose reduction techniques: Automated exposure control, adjustment of mA and/or kv according to the patient's size, and use of iterative reconstruction technique. FINDINGS: Bilateral lung bradley are well aerated and clear. The previously identified 5 mm nodule in the left apex is no longer present. No acute consolidation, new suspicious nodule or mass. No effusion. No pneumothorax. Tracheobronchial tree is patent. Evaluation of the mediastinum demonstrates normal thoracic aorta, pulmonary vasculature and heart/pericardium. No axillary, hilar, or mediastinal adenopathy. Surrounding musculoskeletal structures are intact and without acute osseous abnormality. Limited upper abdomen demonstrates normal bilateral adrenal glands. IMPRESSION: 1. Previous small left apical nodule has resolved likely represented small atelectasis. 2. No acute mediastinal or pleuroparenchymal process otherwise appreciated. <Electronically signed by Scotty Kaiser > 07/25/21 [id number]
== END ==
LOC: M RAD 08:28
PROVIDERS: ATTEND Family Medicine
DX: R91.1 Solitary pulmonary nodule (principal); F10.20 Alcohol dependence, uncomplicated
CPT/HCPCS: 71260; 76705; Q9967

== ENCOUNTER → 2021-08-03 | Outpatient (REF) | payer BC, OTHER ==
[~2021-08-03] MED LIST changes: +ASPI-551 PO; +CARV25TA PO; -ISOVUE-370 76% 100ML VIAL As Ordered ONE; +LOSA100T45 PO; -LOSA100T50 PO; +PT COMMENT; +VITMTA PO
== END ==
LOC: M LAB REF 13:29
PROVIDERS: ATTEND Nurse Practitioner Family
DX: E83.42 Hypomagnesemia (principal)

== ENCOUNTER 2021-09-07 08:25 | Inpatient (IN) | payer BC, OTHER, SELFPAY ==
[~2021-09-07] VITALS: Ht 170.2 cm; Wt 73.5 kg
[2021-09-07] VITALS (27 sets, daily range): BP systolic 82–142; BP diastolic 50–72
[~2021-09-07 08:25] MED LIST changes: -ASPI-551 PO; -CARV25TA PO; -PT COMMENT; -VITMTA PO
[2021-09-07] MEDS ORDERED: NS 2,180 ML in IV 1 EA IV ONE (08:50)
[2021-09-07] MEDS ORDERED: cefTRIAXone SOD 2 GM in D5W MINI-BAG PLUS 50 ML IV ONE (08:50)
[2021-09-07 09:12] LABS: BASO % 0.5 % (0.0-1.0); EOS # 0.1 10^3/uL (0.0-0.5); EOS % 0.6 % (0.0-3.0); HEMATOCRIT 35.3 % (42.0-52.0); HEMOGLOBIN 11.9 g/dl (13.5-17.5); LYMPH # 1.1 10^3/uL (1.5-5.0); LYMPH % 14.1 % (24.0-44.0); MEAN CORPUSCULAR HGB CONC 33.7 g/dl (32.0-36.5); MEAN CORPUSCULAR VOLUME 97.8 fl (80.0-96.0); NEUTROPHILS # 5.9 10^3/uL (1.5-8.5); NEUTROPHILS % 72.3 % (36.0-66.0); RED BLOOD COUNT 3.61 10^6/uL (4.30-6.10); WHITE BLOOD COUNT 8.1 10^3/uL (4.0-10.0)
[2021-09-07 09:22] LABS: INR 1.33; PROTHROMBIN TIME 16.9 SECONDS (12.7-14.5)
[2021-09-07 09:23] LABS: PARTIAL THROMBOPLASTIN TIME 37.8 SECONDS (25.9-37.0)
[2021-09-07 09:45] LABS: PLATELET COUNT, AUTOMATED 76 10^3/uL (150-450)
[2021-09-07 10:04] LABS: ALBUMIN 2.6 GM/DL (3.2-5.2); ALT/SGPT 852 U/L (12-78); AMYLASE 41 U/L (25-115); BILIRUBIN,DIRECT 2.9 MG/DL (0.0-0.2); BILIRUBIN,TOTAL 3.8 MG/DL (0.2-1.0); BLOOD UREA NITROGEN 82 MG/DL (7-18); C REACTIVE PROTEIN QUANTITATIV 5.03 MG/DL (0.00-0.30); CALCIUM LEVEL 5.8 MG/DL (8.5-10.1); CARBON DIOXIDE LEVEL 16 MEQ/L (21-32); CHLORIDE LEVEL 99 MEQ/L (98-107); ETHYL ALCOHOL (ETHANOL) < 0.003 % (0.000-0.010); GLOMERULAR FILTRATION RATE 5.4 (>56); GLUCOSE, FASTING 100 MG/DL (70-100); SODIUM LEVEL 134 MEQ/L (136-145); TOTAL PROTEIN 7.1 GM/DL (6.4-8.2)
[2021-09-07] MEDS ORDERED: NS 1,000 ML IV ONE ×4 (10:15→15:50)
[2021-09-07 10:34] LABS: CK-MB VALUE MASS 713.5 NG/ML (<3.6); MB/CK RELATIVE INDEX 0.58 (< OR =4)
[2021-09-07 11:06] LABS: AMORPHOUS SEDIMENT SMALL (NEGATIVE); APPEARANCE, URINE CLEAR (CLEAR); BACTERIA, URINE AUTO NEGATIVE (NEGATIVE); BILIRUBIN, URINE AUTO NEGATIVE (NEGATIVE); BLOOD, URINE BLOOD 3+ (NEGATIVE); COLOR, URINE AMBER (YELLOW); GLUCOSE, URINE (UA) AUTO NEGATIVE (NEGATIVE); KETONE, URINE AUTO NEGATIVE (NEGATIVE); LEUKOCYTE ESTERASE, URINE AUTO NEGATIVE (NEGATIVE); NITRITE, URINE AUTO NEGATIVE (NEGATIVE); PROTEIN, URINE AUTO 2+ mg/dL (NEGATIVE); RBC, URINE AUTO 7 /HPF (0-3); SPECIFIC GRAVITY URINE AUTO 1.009 (1.002-1.035); SQUAMOUS EPITHELIAL CELL UR AU 0 /HPF (0-6); UROBILINOGEN, URINE AUTO 0.2 mg/dL (0.0-2.0); WBC, URINE AUTO 4 /HPF (0-3)
[2021-09-07] MEDS ORDERED: CALCIUM GLUCONATE 1,000 MG in D5W MINI-BAG PLUS 100 ML IV ONE ×4 (11:10→18:00)
[2021-09-07 11:32] LABS: CREATININE,RANDOM URINE 85.8 MG/DL
[2021-09-07 11:47] LABS: ACETAMINOPHEN LEVEL < 2.0 UG/ML (10.0-30.0); SALICYLATE LEVEL < 1.7 MG/DL (5.0-30.0)
[2021-09-07] MEDS ORDERED: NS 1,000 ML IV SCH (12:00)
[2021-09-07 12:27] LABS: AMPHETAMINES LEVEL URINE NEGATIVE (NEGATIVE); BARBITURATES URINE NEGATIVE (NEGATIVE); BENZODIAZEPINES URINE NEGATIVE (NEGATIVE); CANNABINOIDS URINE NEGATIVE (NEGATIVE); COCAINE METABOLITE URINE NEGATIVE (NEGATIVE); METHADONE URINE NEGATIVE (NEGATIVE); OPIATES URINE NEGATIVE (NEGATIVE); PHENCYCLIDINE URINE NEGATIVE (NEGATIVE)
[2021-09-07 13:45] LABS: VENOUS HCO3 12.2 MEQ/L (23.0-27.0); VENOUS O2 SATURATION 98.1 % (60.0-80.0); VENOUS PARTIAL PRESSURE CO2 29.7 mmHg (38.0-50.0); VENOUS PARTIAL PRESSURE O2 134.8 mmHg (30.0-50.0); VENOUS PH 7.231 UNITS (7.330-7.430); VENOUS STANDARD HCO3 13.6 MEQ/L; VENOUS TOTAL CO2 13.1 MEQ/L (24.0-28.0)
[2021-09-07 13:49] LABS: HEMATOCRIT 30.3 % (42.0-52.0); MEAN CORPUSCULAR HEMOGLOBIN 32.6 pg (27.0-33.0); MEAN CORPUSCULAR HGB CONC 32.7 g/dl (32.0-36.5); MEAN CORPUSCULAR VOLUME 99.7 fl (80.0-96.0); RED BLOOD COUNT 3.04 10^6/uL (4.30-6.10); WHITE BLOOD COUNT 7.5 10^3/uL (4.0-10.0)
[2021-09-07 13:52] LABS: HEMOGLOBIN 9.9 g/dl (13.5-17.5); PLATELET COUNT, AUTOMATED 62 10^3/uL (150-450)
[2021-09-07 13:54] LABS: ABG BASE EXCESS -13.5 (-2.0-2.0); ABG HCO3 12.3 MEQ/L (22.0-26.0); ABG O2 SATURATION 96.9 % (95.0-99.0); ABG PARTIAL PRESSURE CO2 28.6 mmHg (35.0-45.0); ABG PARTIAL PRESSURE O2 106.2 mmHg (75.0-100.0); ABG STANDARD HCO3 13.9 MEQ/L (22.0-26.0); ABG TOTAL CO2 13.2 MEQ/L (22.0-29.0); ABG pH (ARTERIAL) 7.252 UNITS (7.350-7.450)
[2021-09-07] MEDS ORDERED: HEPARIN SOD (PORCINE) 5000UNITS/ML 1ML VIAL/SYRINGE SQ SCH (14:00)
[2021-09-07] MEDS ORDERED: CARV25TA PO (14:27)
[2021-09-07] MEDS ORDERED: HOME MED LIST COMPLETE! XX SCH (14:30)
[2021-09-07] MEDS ORDERED: PT COMMENT (14:30)
[2021-09-07 15:07] LABS: ALBUMIN 2.1 GM/DL (3.2-5.2); ALT/SGPT 718 U/L (12-78); BILIRUBIN,TOTAL 2.6 MG/DL (0.2-1.0); BLOOD UREA NITROGEN 80 MG/DL (7-18); CALCIUM LEVEL 5.3 MG/DL (8.5-10.1); CARBON DIOXIDE LEVEL 13 MEQ/L (21-32); CHLORIDE LEVEL 108 MEQ/L (98-107); CREATININE FOR GFR 9.59 MG/DL (0.70-1.30); GLOMERULAR FILTRATION RATE 6.1 (>56); GLUCOSE, FASTING 107 MG/DL (70-100); HEPATITIS B CORE ANTIBODY IGM NEGATIVE (NEGATIVE); HEPATITIS B SURFACE ANTIGEN NEGATIVE (NEGATIVE); HEPATITIS C VIRUS ABY INDEX 0.1 INDEX (<0.8); PTH INTACT 492.3 PG/ML (18.5-88.0); SODIUM LEVEL 138 MEQ/L (136-145); TOTAL 25(OH) VITAMIN D 28.8 NG/ML (30.0-100.0); TOTAL PROTEIN 5.6 GM/DL (6.4-8.2)
[2021-09-07 15:08] LABS: HEPATITIS B CORE ANTIBODY IGM NEGATIVE (NEGATIVE); HEPATITIS B SURFACE ANTIGEN NEGATIVE (NEGATIVE); HEPATITIS C VIRUS ABY INDEX 0.1 INDEX (<0.8)
[2021-09-07] MEDS ORDERED: NOREPINEPHRINE BITARTRATE 8 MG in D5W 500 ML IV SCH (15:10)
[2021-09-07] MEDS: MULTIVITAMINS/MINERALS THERAP 1 TAB PO SCH (15:27)
[2021-09-07] MEDS: FOLIC ACID 1 MG TAB PO SCH (15:27)
[2021-09-07] MEDS: THIAMINE 100 MG TAB PO SCH ×2 (15:27→20:26)
[2021-09-07] MEDS: PANTOPRAZOLE 40MG VIAL (C9113 PER 1) IV SCH (15:29)
[2021-09-07] MEDS ORDERED: NOREPINEPHRINE BITARTRATE 8 MG in D5W 492 ML IV SCH (15:40)
[2021-09-07] MEDS ORDERED: NOREPINEPHRINE 4 MG/4 ML AMP As Ordered ONE (15:41)
[2021-09-07] MEDS ORDERED: CALCIUM GLUCONATE 1,000 MG in D5W MINI-BAG PLUS 100 ML IV SCH (16:00)
[2021-09-07] MEDS ORDERED: SODIUM BICARBONATE 150 MEQ in D5W 1,000 ML IV SCH (16:30)
[2021-09-07] MEDS ORDERED: NS 500 ML IV ONE (17:15)
[2021-09-07 17:58] LABS: ABG BASE EXCESS -16.3 (-2.0-2.0); ABG HCO3 11.2 MEQ/L (22.0-26.0); ABG PARTIAL PRESSURE CO2 32.7 mmHg (35.0-45.0); ABG PARTIAL PRESSURE O2 52.4 mmHg (75.0-100.0); ABG STANDARD HCO3 11.7 MEQ/L (22.0-26.0); ABG TOTAL CO2 12.2 MEQ/L (22.0-29.0)
[2021-09-07 17:59] LABS: ABG pH (ARTERIAL) 7.154 UNITS (7.350-7.450)
[2021-09-07] MEDS ORDERED: CIPROFLOXACIN 500MG TABLET PO SCH (18:00)
[2021-09-07 18:03] LABS: ALBUMIN 1.9 GM/DL (3.2-5.2); BILIRUBIN,TOTAL 2.2 MG/DL (0.2-1.0); CALCIUM LEVEL 5.3 MG/DL (8.5-10.1); CREATININE FOR GFR 9.12 MG/DL (0.70-1.30); GLOMERULAR FILTRATION RATE 6.5 (>56); MAGNESIUM LEVEL 2.1 MG/DL (1.8-2.4); POTASSIUM SERUM 4.2 MEQ/L (3.5-5.1); TOTAL PROTEIN 5.2 GM/DL (6.4-8.2)
[2021-09-07] MEDS ORDERED: SODIUM BICARBONATE 8.4% INJ 50 ML SYRINGE IV STA (18:07)
[2021-09-07] MEDS ORDERED: SODIUM BICARBONATE 8.4% INJ 50 ML SYRINGE As Ordered ONE (18:07)
[2021-09-07] MEDS: NOREPINEPHRINE BITARTRATE 8 MG in D5W 492 ML IV SCH (21:13)
[2021-09-07] MEDS: SODIUM BICARBONATE 150 MEQ in STERILE WATER LITER BAG 1,000 ML IV SCH (21:14)
[2021-09-07] MEDS ORDERED: VASOPRESSIN INJ 20 UNITS in NS 499 ML IV SCH (23:00)
[2021-09-08] VITALS (77 sets, daily range): BP systolic 85–154; BP diastolic 51–80
[2021-09-08] MEDS: NOREPINEPHRINE BITARTRATE 8 MG in D5W 492 ML IV SCH ×2 (02:45→06:31)
[2021-09-08 04:39] LABS: CENTRAL VEN BASE EXCESS -7.8
[2021-09-08] MEDS: SODIUM BICARBONATE 150 MEQ in STERILE WATER LITER BAG 1,000 ML IV SCH (04:40)
[2021-09-08 04:45] LABS: INR 1.35; PROTHROMBIN TIME 17.1 SECONDS (12.7-14.5)
[2021-09-08 05:18] LABS: BILIRUBIN,TOTAL 2.3 MG/DL (0.2-1.0); CREATININE FOR GFR 9.09 MG/DL (0.70-1.30); GLOMERULAR FILTRATION RATE 6.5 (>56); POTASSIUM SERUM 2.9 MEQ/L (3.5-5.1); TOTAL PROTEIN 5.4 GM/DL (6.4-8.2)
[2021-09-08] MEDS ORDERED: KCL 20MEQ IN 100ML SWI (KRUN) 20 MEQ in IV 1 EA IV ONE ×4 (07:00→08:00)
[2021-09-08 07:43] LABS: MAGNESIUM LEVEL 1.9 MG/DL (1.8-2.4); PHOSPHORUS LEVEL 7.1 MG/DL (2.5-4.9)
[2021-09-08] MEDS: THIAMINE 100 MG TAB PO SCH ×2 (08:08→22:14)
[2021-09-08] MEDS: MULTIVITAMINS/MINERALS THERAP 1 TAB PO SCH (08:08)
[2021-09-08] MEDS: cefTRIAXone SOD 2 GM in D5W MINI-BAG PLUS 50 ML IV SCH (08:08)
[2021-09-08] MEDS: FOLIC ACID 1 MG TAB PO SCH (08:08)
[2021-09-08] MEDS: PANTOPRAZOLE 40MG VIAL (C9113 PER 1) IV SCH (08:08)
[2021-09-08 08:34] LABS: ABG BASE EXCESS -7.9 (-2.0-2.0); ABG HCO3 16.5 MEQ/L (22.0-26.0); ABG O2 SATURATION 91.4 % (95.0-99.0); ABG PARTIAL PRESSURE CO2 29.8 mmHg (35.0-45.0); ABG TOTAL CO2 17.4 MEQ/L (22.0-29.0)
[2021-09-08] MEDS ORDERED: cefTRIAXone SOD 2 GM VIAL (J0696 PER 250MG) IV SCH (09:00)
[2021-09-08] MEDS ORDERED: CALCIUM GLUCONATE 1,000 MG in D5W MINI-BAG PLUS 100 ML IV ONE ×4 (09:00→17:00)
[2021-09-08] MEDS ORDERED: cefTRIAXone SOD 2 GM VIAL (J0696 PER 250MG) IM SCH (09:00)
[2021-09-08] MEDS: NOREPINEPHRINE BITARTRATE 16 MG in D5W 484 ML IV SCH (09:19)
[2021-09-08] MEDS: VASOPRESSIN INJ 40 UNITS in NS 498 ML IV SCH ×2 (09:19→20:29)
[2021-09-08] MEDS ORDERED: LIDOCAINE 1% MDV 20ML VIAL As Ordered ONE ×2 (09:32→09:35)
[2021-09-08] MEDS ORDERED: LIDOCAINE 1% MDV 20ML VIAL SC ONE (09:50)
[2021-09-08 10:05] LABS: BASO % 0.3 % (0.0-1.0); EOS # 0.1 10^3/uL (0.0-0.5); HEMATOCRIT 29.7 % (42.0-52.0); HEMOGLOBIN 9.8 g/dl (13.5-17.5); LYMPH # 0.9 10^3/uL (1.5-5.0); LYMPH % 9.6 % (24.0-44.0); MONO # 1.3 10^3/uL (0.0-0.8); MONO % 13.7 % (2.0-8.0); NEUTROPHILS # 7.1 10^3/uL (1.5-8.5); NEUTROPHILS % 74.8 % (36.0-66.0); RED BLOOD COUNT 2.97 10^6/uL (4.30-6.10); WHITE BLOOD COUNT 9.4 10^3/uL (4.0-10.0)
[2021-09-08 10:06] LABS: PLATELET COUNT, AUTOMATED 62 10^3/uL (150-450)
[2021-09-08] MEDS ORDERED: GLUCOSE 4GM CHEW TABLET PO PRN (11:00)
[2021-09-08] MEDS ORDERED: DEXTROSE 50% 50 ML SYRINGE IV PRN (11:00)
[2021-09-08] MEDS ORDERED: GLUCAGON INJ 1MG VIAL SC PRN (11:00)
[2021-09-08] MEDS ORDERED: SODIUM CHLORIDE 0.9% INJ 10 ML SYR IV PRN (11:15)
[2021-09-08] MEDS: OXAZEPAM 10 MG CAP PO SCH ×3 (12:47→23:03)
[2021-09-08] MEDS: HumaLOG INSULIN (NovoLOG) PER UNIT SC SCH ×2 (12:48→17:58)
[2021-09-08 17:37] LABS: ALBUMIN 2.1 GM/DL (3.2-5.2); BILIRUBIN,TOTAL 2.5 MG/DL (0.2-1.0); CALCIUM LEVEL 5.7 MG/DL (8.5-10.1); CREATININE FOR GFR 7.71 MG/DL (0.70-1.30); GLOMERULAR FILTRATION RATE 7.9 (>56); PHOSPHORUS LEVEL 5.9 MG/DL (2.5-4.9); POTASSIUM SERUM 3.4 MEQ/L (3.5-5.1); TOTAL PROTEIN 5.8 GM/DL (6.4-8.2)
[2021-09-08] MEDS: LORazepam 2 MG TAB PO PRN ×2 (22:14→23:03)
[2021-09-08] MEDS ORDERED: diazePAM 10MG/2ML SYRINGE (J3360 PER 5MG) IV ONE (23:45)
[2021-09-08] MEDS ORDERED: diazePAM 10MG/2ML SYRINGE (J3360 PER 5MG) IV PRN (23:50)
[2021-09-09] VITALS (65 sets, daily range): BP systolic 75–159; BP diastolic 52–87
[2021-09-09 00:47] LABS: HEMATOCRIT 30.2 % (42.0-52.0); HEMOGLOBIN 10.2 g/dl (13.5-17.5); MEAN CORPUSCULAR HGB CONC 33.8 g/dl (32.0-36.5); MEAN CORPUSCULAR VOLUME 97.7 fl (80.0-96.0); RED BLOOD COUNT 3.09 10^6/uL (4.30-6.10); WHITE BLOOD COUNT 9.9 10^3/uL (4.0-10.0)
[2021-09-09 01:02] LABS: PLATELET COUNT, AUTOMATED 59 10^3/uL (150-450)
[2021-09-09] MEDS: diazePAM 10MG/2ML SYRINGE (J3360 PER 5MG) IV PRN ×4 (01:09→20:51)
[2021-09-09 01:30] LABS: CALCIUM LEVEL 6.1 MG/DL (8.5-10.1); CREATININE FOR GFR 5.68 MG/DL (0.70-1.30); GLOMERULAR FILTRATION RATE 11.2 (>56); MAGNESIUM LEVEL 2.2 MG/DL (1.8-2.4); POTASSIUM SERUM 3.3 MEQ/L (3.5-5.1)
[2021-09-09 01:32] LABS: PHOSPHORUS LEVEL 4.3 MG/DL (2.5-4.9)
[2021-09-09] MEDS: KCL 20MEQ IN 100ML SWI (KRUN) 20 MEQ in IV 1 EA IV SCH ×10 (03:22→17:29)
[2021-09-09] MEDS: CALCIUM GLUCONATE 1,000 MG, VIAL MATE ADAPTER 1 EACH in NS 100 ML IV SCH ×4 (03:23→14:02)
[2021-09-09] MEDS: HumaLOG INSULIN (NovoLOG) PER UNIT SC SCH ×4 (06:00→18:00)
[2021-09-09] MEDS ORDERED: OXAZEPAM 10 MG CAP PO SCH (06:00)
[2021-09-09 06:07] LABS: BASO % 0.2 % (0.0-1.0); EOS # 0.1 10^3/uL (0.0-0.5); EOS % 0.5 % (0.0-3.0); HEMATOCRIT 31.2 % (42.0-52.0); HEMOGLOBIN 10.4 g/dl (13.5-17.5); LYMPH # 0.9 10^3/uL (1.5-5.0); LYMPH % 9.6 % (24.0-44.0); MEAN CORPUSCULAR HEMOGLOBIN 32.8 pg (27.0-33.0); MEAN CORPUSCULAR HGB CONC 33.3 g/dl (32.0-36.5); MEAN CORPUSCULAR VOLUME 98.4 fl (80.0-96.0); MONO % 10.3 % (2.0-8.0); NEUTROPHILS # 7.4 10^3/uL (1.5-8.5); NEUTROPHILS % 78.8 % (36.0-66.0); RED BLOOD COUNT 3.17 10^6/uL (4.30-6.10); WHITE BLOOD COUNT 9.3 10^3/uL (4.0-10.0)
[2021-09-09 06:09] LABS: PLATELET COUNT, AUTOMATED 55 10^3/uL (150-450)
[2021-09-09] MEDS: NOREPINEPHRINE BITARTRATE 16 MG in D5W 484 ML IV SCH (06:21)
[2021-09-09 06:23] LABS: INR 1.33; PROTHROMBIN TIME 16.9 SECONDS (12.7-14.5)
[2021-09-09] MEDS: cefTRIAXone SOD 2 GM in D5W MINI-BAG PLUS 50 ML IV SCH (08:21)
[2021-09-09] MEDS: PANTOPRAZOLE 40MG VIAL (C9113 PER 1) IV SCH (08:21)
[2021-09-09] MEDS: FOLIC ACID 1 MG TAB PO SCH (08:31)
[2021-09-09] MEDS: MULTIVITAMINS/MINERALS THERAP 1 TAB PO SCH (08:32)
[2021-09-09] MEDS: THIAMINE 100 MG TAB PO SCH ×2 (08:32→20:39)
[2021-09-09] MEDS ORDERED: POTASSIUM CHLORIDE 10MEQ SR TABLET PO SCH (09:00)
[2021-09-09] MEDS: OXAZEPAM 15 MG CAP PO SCH ×2 (11:12→17:22)
[2021-09-09] MEDS: VASOPRESSIN INJ 40 UNITS in NS 498 ML IV SCH (11:35)
[2021-09-09 11:57] LABS: HEMATOCRIT 30.1 % (42.0-52.0); HEMOGLOBIN 9.9 g/dl (13.5-17.5); MEAN CORPUSCULAR HEMOGLOBIN 32.6 pg (27.0-33.0); MEAN CORPUSCULAR HGB CONC 32.9 g/dl (32.0-36.5); RED BLOOD COUNT 3.04 10^6/uL (4.30-6.10)
[2021-09-09 11:58] LABS: PLATELET COUNT, AUTOMATED 55 10^3/uL (150-450)
[2021-09-09 12:28] LABS: CREATININE FOR GFR 3.94 MG/DL (0.70-1.30); MAGNESIUM LEVEL 2.3 MG/DL (1.8-2.4)
[2021-09-09 17:47] LABS: HEMATOCRIT 30.2 % (42.0-52.0); MEAN CORPUSCULAR HEMOGLOBIN 32.8 pg (27.0-33.0); MEAN CORPUSCULAR HGB CONC 33.1 g/dl (32.0-36.5); RED BLOOD COUNT 3.05 10^6/uL (4.30-6.10); WHITE BLOOD COUNT 7.9 10^3/uL (4.0-10.0)
[2021-09-09 17:56] LABS: PLATELET COUNT, AUTOMATED 50 10^3/uL (150-450)
[2021-09-09 18:01] LABS: INR 1.39; PROTHROMBIN TIME 17.4 SECONDS (12.7-14.5)
[2021-09-09 18:02] LABS: PARTIAL THROMBOPLASTIN TIME 44.4 SECONDS (25.9-37.0)
[2021-09-09 18:04] LABS: D-DIMER QUANT 3708.75 ng/ml (<500)
[2021-09-10] VITALS (65 sets, daily range): BP systolic 80–155; BP diastolic 50–109
[2021-09-10 00:13] LABS: HEMATOCRIT 28.8 % (42.0-52.0); HEMOGLOBIN 9.7 g/dl (13.5-17.5); MEAN CORPUSCULAR HEMOGLOBIN 33.4 pg (27.0-33.0); MEAN CORPUSCULAR HGB CONC 33.7 g/dl (32.0-36.5); MEAN CORPUSCULAR VOLUME 99.3 fl (80.0-96.0); WHITE BLOOD COUNT 8.3 10^3/uL (4.0-10.0)
[2021-09-10] MEDS: diazePAM 10MG/2ML SYRINGE (J3360 PER 5MG) IV PRN (00:15)
[2021-09-10 00:17] LABS: CALCIUM LEVEL 7.7 MG/DL (8.5-10.1); GLOMERULAR FILTRATION RATE 23.3 (>56); MAGNESIUM LEVEL 1.8 MG/DL (1.8-2.4); PHOSPHORUS LEVEL 3.1 MG/DL (2.5-4.9); POTASSIUM SERUM 3.5 MEQ/L (3.5-5.1)
[2021-09-10 00:21] LABS: PLATELET COUNT, AUTOMATED 57 10^3/uL (150-450)
[2021-09-10] MEDS ORDERED: MAG SULF 1GM/100ML (MAG RUN) 1 GM in IV 1 EA IV ONE (00:30)
[2021-09-10] MEDS ORDERED: CALCIUM GLUCONATE 1,000 MG, VIAL MATE ADAPTER 1 EACH in NS 100 ML IV ONE (00:30)
[2021-09-10] MEDS: KCL 20MEQ IN 100ML SWI (KRUN) 20 MEQ in IV 1 EA IV SCH ×8 (00:45→15:15)
[2021-09-10 05:50] LABS: BASO % 0.2 % (0.0-1.0); EOS # 0.1 10^3/uL (0.0-0.5); EOS % 0.6 % (0.0-3.0); HEMATOCRIT 29.9 % (42.0-52.0); HEMOGLOBIN 9.8 g/dl (13.5-17.5); LYMPH # 0.9 10^3/uL (1.5-5.0); LYMPH % 9.7 % (24.0-44.0); MEAN CORPUSCULAR HEMOGLOBIN 33.1 pg (27.0-33.0); MEAN CORPUSCULAR HGB CONC 32.8 g/dl (32.0-36.5); MONO # 1.1 10^3/uL (0.0-0.8); MONO % 11.3 % (2.0-8.0); NEUTROPHILS # 7.4 10^3/uL (1.5-8.5); NEUTROPHILS % 77.4 % (36.0-66.0); RED BLOOD COUNT 2.96 10^6/uL (4.30-6.10); WHITE BLOOD COUNT 9.5 10^3/uL (4.0-10.0)
[2021-09-10] MEDS: HumaLOG INSULIN (NovoLOG) PER UNIT SC SCH ×4 (05:52→18:00)
[2021-09-10] MEDS: OXAZEPAM 15 MG CAP PO SCH ×2 (05:52)
[2021-09-10 06:02] LABS: INR 1.33; PROTHROMBIN TIME 16.9 SECONDS (12.7-14.5)
[2021-09-10 06:04] LABS: PARTIAL THROMBOPLASTIN TIME 49.3 SECONDS (25.9-37.0); PLATELET COUNT, AUTOMATED 63 10^3/uL (150-450)
[2021-09-10 06:15] LABS: BILIRUBIN,DIRECT 2.5 MG/DL (0.0-0.2); BILIRUBIN,TOTAL 2.8 MG/DL (0.2-1.0); TOTAL PROTEIN 5.6 GM/DL (6.4-8.2)
[2021-09-10 08:22] LABS: CALCIUM LEVEL 8.2 MG/DL (8.5-10.1); CREATININE FOR GFR 2.75 MG/DL (0.70-1.30); GLOMERULAR FILTRATION RATE 25.8 (>56); PHOSPHORUS LEVEL 3.1 MG/DL (2.5-4.9); POTASSIUM SERUM 3.8 MEQ/L (3.5-5.1)
[2021-09-10] MEDS: MULTIVITAMINS/MINERALS THERAP 1 TAB PO SCH (08:23)
[2021-09-10] MEDS: PANTOPRAZOLE 40MG VIAL (C9113 PER 1) IV SCH (08:23)
[2021-09-10] MEDS: cefTRIAXone SOD 2 GM in D5W MINI-BAG PLUS 50 ML IV SCH (08:23)
[2021-09-10] MEDS: FOLIC ACID 1 MG TAB PO SCH (08:23)
[2021-09-10] MEDS ORDERED: SODIUM CHLORIDE 0.9% INJ 10 ML SYR IV PRN (10:35)
[2021-09-10] MEDS: VASOPRESSIN INJ 40 UNITS in NS 498 ML IV SCH (10:51)
[2021-09-10] MEDS: HEPARIN SOD (PORCINE) 5000UNITS/ML 1ML VIAL/SYRINGE SQ SCH ×2 (10:52→23:41)
[2021-09-10 12:50] LABS: HEMATOCRIT 30.5 % (42.0-52.0); HEMOGLOBIN 9.8 g/dl (13.5-17.5); MEAN CORPUSCULAR HEMOGLOBIN 32.8 pg (27.0-33.0); MEAN CORPUSCULAR HGB CONC 32.1 g/dl (32.0-36.5); RED BLOOD COUNT 2.99 10^6/uL (4.30-6.10); WHITE BLOOD COUNT 10.2 10^3/uL (4.0-10.0)
[2021-09-10 12:51] LABS: PLATELET COUNT, AUTOMATED 62 10^3/uL (150-450)
[2021-09-10 13:08] LABS: CALCIUM LEVEL 8.5 MG/DL (8.5-10.1); CREATININE FOR GFR 2.63 MG/DL (0.70-1.30); GLOMERULAR FILTRATION RATE 27.2 (>56); MAGNESIUM LEVEL 2.3 MG/DL (1.8-2.4); PHOSPHORUS LEVEL 2.8 MG/DL (2.5-4.9); POTASSIUM SERUM 3.3 MEQ/L (3.5-5.1)
[2021-09-10] MEDS: OXAZEPAM 10 MG CAP PO SCH ×3 (15:15→23:40)
[2021-09-11] VITALS (79 sets, daily range): BP systolic 80–133; BP diastolic 41–82
[2021-09-11 00:31] LABS: HEMATOCRIT 31.2 % (42.0-52.0); HEMOGLOBIN 10.1 g/dl (13.5-17.5); MEAN CORPUSCULAR HGB CONC 32.4 g/dl (32.0-36.5); RED BLOOD COUNT 3.06 10^6/uL (4.30-6.10); WHITE BLOOD COUNT 8.6 10^3/uL (4.0-10.0)
[2021-09-11 00:36] LABS: PLATELET COUNT, AUTOMATED 64 10^3/uL (150-450)
[2021-09-11 00:38] LABS: CALCIUM LEVEL 8.5 MG/DL (8.5-10.1); CREATININE FOR GFR 1.99 MG/DL (0.70-1.30); GLOMERULAR FILTRATION RATE 37.5 (>56); MAGNESIUM LEVEL 2.2 MG/DL (1.8-2.4); PHOSPHORUS LEVEL 2.9 MG/DL (2.5-4.9); POTASSIUM SERUM 3.7 MEQ/L (3.5-5.1)
[2021-09-11] MEDS ORDERED: KCL 20MEQ IN 100ML SWI (KRUN) 20 MEQ in IV 1 EA IV ONE ×2 (00:45)
[2021-09-11] MEDS: HumaLOG INSULIN (NovoLOG) PER UNIT SC SCH ×2 (01:12→05:57)
[2021-09-11 05:46] LABS: BASO # 0.1 10^3/uL (0.0-0.2); BASO % 0.6 % (0.0-1.0); EOS # 0.2 10^3/uL (0.0-0.5); EOS % 2.5 % (0.0-3.0); HEMATOCRIT 30.5 % (42.0-52.0); HEMOGLOBIN 9.8 g/dl (13.5-17.5); LYMPH # 1.4 10^3/uL (1.5-5.0); MEAN CORPUSCULAR HGB CONC 32.1 g/dl (32.0-36.5); MEAN CORPUSCULAR VOLUME 102.7 fl (80.0-96.0); MONO # 0.8 10^3/uL (0.0-0.8); NEUTROPHILS # 6.4 10^3/uL (1.5-8.5); NEUTROPHILS % 70.3 % (36.0-66.0); RED BLOOD COUNT 2.97 10^6/uL (4.30-6.10); WHITE BLOOD COUNT 9.1 10^3/uL (4.0-10.0)
[2021-09-11 05:47] LABS: PLATELET COUNT, AUTOMATED 69 10^3/uL (150-450)
[2021-09-11 06:14] LABS: ALBUMIN 1.9 GM/DL (3.2-5.2); BILIRUBIN,TOTAL 2.4 MG/DL (0.2-1.0); TOTAL PROTEIN 5.3 GM/DL (6.4-8.2)
[2021-09-11] MEDS: VASOPRESSIN INJ 40 UNITS in NS 498 ML IV SCH (06:47)
[2021-09-11] MEDS: OXAZEPAM 10 MG CAP PO SCH ×3 (06:49→22:21)
[2021-09-11] MEDS: FOLIC ACID 1 MG TAB PO SCH (08:39)
[2021-09-11] MEDS: MULTIVITAMINS/MINERALS THERAP 1 TAB PO SCH (08:39)
[2021-09-11] MEDS: cefTRIAXone SOD 2 GM in D5W MINI-BAG PLUS 50 ML IV SCH (08:39)
[2021-09-11] MEDS: PANTOPRAZOLE 40MG VIAL (C9113 PER 1) IV SCH (08:40)
[2021-09-11] MEDS: HEPARIN SOD (PORCINE) 5000UNITS/ML 1ML VIAL/SYRINGE SQ SCH ×2 (10:14→22:21)
[2021-09-11 11:54] LABS: HEMATOCRIT 30.6 % (42.0-52.0); HEMOGLOBIN 9.9 g/dl (13.5-17.5); MEAN CORPUSCULAR HEMOGLOBIN 33.1 pg (27.0-33.0); MEAN CORPUSCULAR HGB CONC 32.4 g/dl (32.0-36.5); MEAN CORPUSCULAR VOLUME 102.3 fl (80.0-96.0); PLATELET COUNT, AUTOMATED 69 10^3/uL (150-450); RED BLOOD COUNT 2.99 10^6/uL (4.30-6.10); WHITE BLOOD COUNT 9.5 10^3/uL (4.0-10.0)
[2021-09-11 12:35] LABS: CREATININE FOR GFR 1.75 MG/DL (0.70-1.30); GLOMERULAR FILTRATION RATE 43.5 (>56); POTASSIUM SERUM 3.5 MEQ/L (3.5-5.1)
[2021-09-11] MEDS: KCL 20MEQ IN 100ML SWI (KRUN) 20 MEQ in IV 1 EA IV SCH ×4 (14:32→15:43)
[2021-09-11] MEDS ORDERED: POTASSIUM PHOSPHATE INJ 30 MMOL in D5W 500 ML IV ONE (16:00)
[2021-09-11] MEDS: MIDODRINE 5 MG TAB PO SCH (19:35)
[2021-09-12] VITALS (80 sets, daily range): BP systolic 87–150; BP diastolic 43–163
[2021-09-12 00:24] LABS: HEMATOCRIT 31.7 % (42.0-52.0); HEMOGLOBIN 10.1 g/dl (13.5-17.5); MEAN CORPUSCULAR HEMOGLOBIN 32.9 pg (27.0-33.0); MEAN CORPUSCULAR HGB CONC 31.9 g/dl (32.0-36.5); MEAN CORPUSCULAR VOLUME 103.3 fl (80.0-96.0); RED BLOOD COUNT 3.07 10^6/uL (4.30-6.10); WHITE BLOOD COUNT 10.6 10^3/uL (4.0-10.0)
[2021-09-12 00:39] LABS: PLATELET COUNT, AUTOMATED 82 10^3/uL (150-450)
[2021-09-12 00:45] LABS: CREATININE FOR GFR 1.64 MG/DL (0.70-1.30); GLOMERULAR FILTRATION RATE 46.8 (>56); MAGNESIUM LEVEL 2.1 MG/DL (1.8-2.4); POTASSIUM SERUM 4.3 MEQ/L (3.5-5.1)
[2021-09-12] MEDS ORDERED: CALCIUM GLUCONATE 1,000 MG, VIAL MATE ADAPTER 1 EACH in NS 100 ML IV ONE (01:00)
[2021-09-12] MEDS ORDERED: POTASSIUM PHOSPHATE INJ 30 MMOL in D5W 500 ML IV ONE (03:00)
[2021-09-12] MEDS: OXAZEPAM 10 MG CAP PO SCH ×3 (06:35→20:30)
[2021-09-12] MEDS: VASOPRESSIN INJ 40 UNITS in NS 498 ML IV SCH (06:36)
[2021-09-12] MEDS: cefTRIAXone SOD 2 GM in D5W MINI-BAG PLUS 50 ML IV SCH (07:45)
[2021-09-12] MEDS: PANTOPRAZOLE 40MG VIAL (C9113 PER 1) IV SCH (07:45)
[2021-09-12] MEDS: HEPARIN SOD (PORCINE) 5000UNITS/ML 1ML VIAL/SYRINGE SQ SCH ×2 (07:45→20:36)
[2021-09-12] MEDS: FOLIC ACID 1 MG TAB PO SCH (07:46)
[2021-09-12] MEDS: MIDODRINE 5 MG TAB PO SCH ×3 (07:46→16:23)
[2021-09-12] MEDS: MULTIVITAMINS/MINERALS THERAP 1 TAB PO SCH (07:46)
[2021-09-12 09:45] LABS: HEMATOCRIT 32.5 % (42.0-52.0); HEMOGLOBIN 10.1 g/dl (13.5-17.5); MEAN CORPUSCULAR HEMOGLOBIN 32.4 pg (27.0-33.0); MEAN CORPUSCULAR HGB CONC 31.1 g/dl (32.0-36.5); MEAN CORPUSCULAR VOLUME 104.2 fl (80.0-96.0); PLATELET COUNT, AUTOMATED 88 10^3/uL (150-450); RED BLOOD COUNT 3.12 10^6/uL (4.30-6.10); WHITE BLOOD COUNT 11.1 10^3/uL (4.0-10.0)
[2021-09-12 10:13] LABS: ANISOCYTOSIS 1+; ATYPICAL LYMPH 6 % (0-5); EOSINOPHILS 1 % (0-3); LYMPHOCYTES 17 % (16-44); MONOCYTES 7 % (0-5); MYELOCYTES 5 % (0-0); NEUTROPHILS 64 % (28-66); PLATELET ESTIMATE DECREASED (NORMAL); POIKILOCYTOSIS 1+; POLYCHROMASIA 1+
[2021-09-12 10:43] LABS: INR 1.25; PROTHROMBIN TIME 16.1 SECONDS (12.7-14.5)
[2021-09-12 10:45] LABS: PARTIAL THROMBOPLASTIN TIME 89.9 SECONDS (25.9-37.0)
[2021-09-12 11:11] LABS: PHOSPHORUS LEVEL 2.2 MG/DL (2.5-4.9)
[2021-09-12 11:12] LABS: ALBUMIN 1.7 GM/DL (3.2-5.2); BILIRUBIN,DIRECT 1.5 MG/DL (0.0-0.2); BILIRUBIN,TOTAL 1.6 MG/DL (0.2-1.0); MAGNESIUM LEVEL 2.1 MG/DL (1.8-2.4); THYROID STIMULATING HORMONE 10.2 uIU/ML (0.358-3.740); TOTAL PROTEIN 5.8 GM/DL (6.4-8.2)
[2021-09-12] MEDS ORDERED: LIDOCAINE 4% CREAM 5GM (LMX4) TOP PRN (11:15)
[2021-09-12 11:18] LABS: CREATININE FOR GFR 1.66 MG/DL (0.70-1.30); GLOMERULAR FILTRATION RATE 46.2 (>56); POTASSIUM SERUM 4.2 MEQ/L (3.5-5.1)
[2021-09-12] MEDS: AMPICILLIN SOD/SULBACTAM SOD 1.5 GM in D5W MINI-BAG PLUS 50 ML IV SCH (14:39)
[2021-09-13] VITALS (39 sets, daily range): BP systolic 90–151; BP diastolic 51–85
[2021-09-13] MEDS: AMPICILLIN SOD/SULBACTAM SOD 1.5 GM in D5W MINI-BAG PLUS 50 ML IV SCH ×2 (02:10→13:26)
[2021-09-13] MEDS: OXAZEPAM 10 MG CAP PO SCH ×2 (06:43→13:25)
[2021-09-13 08:15] LABS: HEMATOCRIT 33.4 % (42.0-52.0); HEMOGLOBIN 10.6 g/dl (13.5-17.5); MEAN CORPUSCULAR HEMOGLOBIN 33.2 pg (27.0-33.0); MEAN CORPUSCULAR HGB CONC 31.7 g/dl (32.0-36.5); MEAN CORPUSCULAR VOLUME 104.7 fl (80.0-96.0); PLATELET COUNT, AUTOMATED 106 10^3/uL (150-450); RED BLOOD COUNT 3.19 10^6/uL (4.30-6.10); WHITE BLOOD COUNT 14.9 10^3/uL (4.0-10.0)
[2021-09-13 08:57] LABS: ALBUMIN 1.7 GM/DL (3.2-5.2); BILIRUBIN,TOTAL 1.4 MG/DL (0.2-1.0); CALCIUM LEVEL 8.8 MG/DL (8.5-10.1); CREATININE FOR GFR 3.28 MG/DL (0.70-1.30); POTASSIUM SERUM 4.2 MEQ/L (3.5-5.1); TOTAL PROTEIN 5.6 GM/DL (6.4-8.2)
[2021-09-13] MEDS: HEPARIN SOD (PORCINE) 5000UNITS/ML 1ML VIAL/SYRINGE SQ SCH ×2 (09:00→20:27)
[2021-09-13] MEDS: PANTOPRAZOLE 40MG VIAL (C9113 PER 1) IV SCH (09:00)
[2021-09-13] MEDS: MULTIVITAMINS/MINERALS THERAP 1 TAB PO SCH (09:01)
[2021-09-13] MEDS: FOLIC ACID 1 MG TAB PO SCH (09:01)
[2021-09-13] MEDS: MIDODRINE 5 MG TAB PO SCH ×3 (09:01→17:01)
[2021-09-13 09:35] LABS: BASOPHILS 3 % (0-1); EOSINOPHILS 2 % (0-3); LYMPHOCYTES 30 % (16-44); MONOCYTES 7 % (0-5); MYELOCYTES 8 % (0-0); NEUTROPHILS 49 % (28-66); NUCLEATED RED BLOOD CELL 1 % (0-0)
[2021-09-13 09:38] LABS: PLATELET ESTIMATE DECREASED (NORMAL)
[2021-09-13 09:41] LABS: STOMATOCYTES 1+
[2021-09-13 09:43] LABS: POLYCHROMASIA 1+
[2021-09-13] MEDS: LACTOBACILLUS ACIDOPHILUS CAP (BACID) PO SCH (17:01)
[2021-09-14] VITALS: BP_SYST 104; BP_SYST 113; BP_DIAS 63; BP_DIAS 67
[2021-09-14] MEDS: OXAZEPAM 10 MG CAP PO SCH ×2 (01:52→13:15)
[2021-09-14] MEDS: AMPICILLIN SOD/SULBACTAM SOD 1.5 GM in D5W MINI-BAG PLUS 50 ML IV SCH ×2 (01:52→13:15)
[2021-09-14 04:00] VITALS: BP 105/64
[2021-09-14 05:15] LABS: HEMATOCRIT 32.4 % (42.0-52.0); HEMOGLOBIN 10.2 g/dl (13.5-17.5); MEAN CORPUSCULAR HGB CONC 31.5 g/dl (32.0-36.5); MEAN CORPUSCULAR VOLUME 104.9 fl (80.0-96.0); PLATELET COUNT, AUTOMATED 106 10^3/uL (150-450); RED BLOOD COUNT 3.09 10^6/uL (4.30-6.10); WHITE BLOOD COUNT 14.5 10^3/uL (4.0-10.0)
[2021-09-14 05:43] LABS: ATYPICAL LYMPH 2 % (0-5); BASOPHILS 1 % (0-1); EOSINOPHILS 1 % (0-3); LYMPHOCYTES 23 % (16-44); METAMYELOCYTES 2 % (0-0); MONOCYTES 15 % (0-5); NEUTROPHILS 56 % (28-66)
[2021-09-14 05:44] LABS: ANISOCYTOSIS 1+; PLATELET ESTIMATE NORMAL (NORMAL); STOMATOCYTES 1+
[2021-09-14 05:45] LABS: POLYCHROMASIA 1+
[2021-09-14 05:49] LABS: ALBUMIN 1.8 GM/DL (3.2-5.2); BILIRUBIN,TOTAL 1.3 MG/DL (0.2-1.0); CALCIUM LEVEL 9.1 MG/DL (8.5-10.1); CREATININE FOR GFR 4.45 MG/DL (0.70-1.30); GLOMERULAR FILTRATION RATE 14.8 (>56); POTASSIUM SERUM 4.1 MEQ/L (3.5-5.1); TOTAL PROTEIN 5.4 GM/DL (6.4-8.2)
[2021-09-14 08:00] VITALS: BP 118/69
[2021-09-14 09:10] LABS: HSV-1 DNA Negative (Negative); HSV-2 DNA Negative (Negative)
[2021-09-14] MEDS: FOLIC ACID 1 MG TAB PO SCH (09:21)
[2021-09-14] MEDS: MIDODRINE 5 MG TAB PO SCH ×3 (09:21→15:37)
[2021-09-14] MEDS: HEPARIN SOD (PORCINE) 5000UNITS/ML 1ML VIAL/SYRINGE SQ SCH ×2 (09:21→21:25)
[2021-09-14] MEDS: LACTOBACILLUS ACIDOPHILUS CAP (BACID) PO SCH ×2 (09:21→17:20)
[2021-09-14] MEDS: PANTOPRAZOLE 40MG VIAL (C9113 PER 1) IV SCH (09:21)
[2021-09-14] MEDS: MULTIVITAMINS/MINERALS THERAP 1 TAB PO SCH (09:22)
[2021-09-14 12:00] VITALS: BP 124/72
[2021-09-14 16:19] VITALS: BP 147/81
[2021-09-14 20:00] VITALS: BP 129/75
[2021-09-15] VITALS (9 sets, daily range): BP systolic 114–134; BP diastolic 67–81
[2021-09-15] MEDS: OXAZEPAM 10 MG CAP PO SCH ×2 (01:34→14:28)
[2021-09-15] MEDS: AMPICILLIN SOD/SULBACTAM SOD 1.5 GM in D5W MINI-BAG PLUS 50 ML IV SCH ×2 (01:34→20:00)
[2021-09-15 05:11] LABS: HEMATOCRIT 32.5 % (42.0-52.0); HEMOGLOBIN 10.1 g/dl (13.5-17.5); MEAN CORPUSCULAR HGB CONC 31.1 g/dl (32.0-36.5); MEAN CORPUSCULAR VOLUME 106.2 fl (80.0-96.0); PLATELET COUNT, AUTOMATED 113 10^3/uL (150-450); RED BLOOD COUNT 3.06 10^6/uL (4.30-6.10); WHITE BLOOD COUNT 13.3 10^3/uL (4.0-10.0)
[2021-09-15 05:31] LABS: ALBUMIN 1.9 GM/DL (3.2-5.2); BILIRUBIN,TOTAL 1.1 MG/DL (0.2-1.0); CALCIUM LEVEL 9.9 MG/DL (8.5-10.1); CREATININE FOR GFR 5.34 MG/DL (0.70-1.30); POTASSIUM SERUM 3.8 MEQ/L (3.5-5.1)
[2021-09-15] MEDS: MIDODRINE 5 MG TAB PO SCH ×3 (07:44→17:37)
[2021-09-15] MEDS: LACTOBACILLUS ACIDOPHILUS CAP (BACID) PO SCH ×2 (07:44→17:37)
[2021-09-15] MEDS: HEPARIN SOD (PORCINE) 5000UNITS/ML 1ML VIAL/SYRINGE SQ SCH ×2 (08:10→20:00)
[2021-09-15] MEDS: FOLIC ACID 1 MG TAB PO SCH (08:10)
[2021-09-15] MEDS: PANTOPRAZOLE 40MG VIAL (C9113 PER 1) IV SCH (08:10)
[2021-09-15] MEDS: MULTIVITAMINS/MINERALS THERAP 1 TAB PO SCH (08:10)
[2021-09-16] VITALS (7 sets, daily range): BP systolic 111–151; BP diastolic 64–89
[2021-09-16] MEDS: OXAZEPAM 10 MG CAP PO SCH (01:08)
[2021-09-16] MEDS: AMPICILLIN SOD/SULBACTAM SOD 1.5 GM in D5W MINI-BAG PLUS 50 ML IV SCH ×2 (04:15→16:58)
[2021-09-16 06:19] LABS: HEMATOCRIT 31.5 % (42.0-52.0); HEMOGLOBIN 9.8 g/dl (13.5-17.5); MEAN CORPUSCULAR HEMOGLOBIN 32.9 pg (27.0-33.0); MEAN CORPUSCULAR HGB CONC 31.1 g/dl (32.0-36.5); MEAN CORPUSCULAR VOLUME 105.7 fl (80.0-96.0); PLATELET COUNT, AUTOMATED 116 10^3/uL (150-450); RED BLOOD COUNT 2.98 10^6/uL (4.30-6.10); WHITE BLOOD COUNT 10.9 10^3/uL (4.0-10.0)
[2021-09-16 06:46] LABS: ALBUMIN 1.9 GM/DL (3.2-5.2); CALCIUM LEVEL 9.6 MG/DL (8.5-10.1); CREATININE FOR GFR 5.76 MG/DL (0.70-1.30); POTASSIUM SERUM 3.7 MEQ/L (3.5-5.1); TOTAL PROTEIN 5.5 GM/DL (6.4-8.2)
[2021-09-16] MEDS: LACTOBACILLUS ACIDOPHILUS CAP (BACID) PO SCH ×2 (09:12→16:58)
[2021-09-16] MEDS: PANTOPRAZOLE 40MG VIAL (C9113 PER 1) IV SCH (09:12)
[2021-09-16] MEDS: HEPARIN SOD (PORCINE) 5000UNITS/ML 1ML VIAL/SYRINGE SQ SCH ×2 (09:12→20:05)
[2021-09-16] MEDS: MIDODRINE 5 MG TAB PO SCH ×3 (09:13→16:58)
[2021-09-16] MEDS: MULTIVITAMINS/MINERALS THERAP 1 TAB PO SCH (09:13)
[2021-09-16] MEDS: FOLIC ACID 1 MG TAB PO SCH (09:13)
[2021-09-16] MEDS ORDERED: FUROSEMIDE 40MG/4ML VIAL (J1940) IV ONE (11:40)
[2021-09-17] MEDS: AMPICILLIN SOD/SULBACTAM SOD 1.5 GM in D5W MINI-BAG PLUS 50 ML IV SCH ×2 (04:36→16:59)
[2021-09-17 06:24] LABS: HEMATOCRIT 32.1 % (42.0-52.0); MEAN CORPUSCULAR HEMOGLOBIN 32.7 pg (27.0-33.0); MEAN CORPUSCULAR HGB CONC 31.2 g/dl (32.0-36.5); MEAN CORPUSCULAR VOLUME 104.9 fl (80.0-96.0); PLATELET COUNT, AUTOMATED 137 10^3/uL (150-450); RED BLOOD COUNT 3.06 10^6/uL (4.30-6.10); WHITE BLOOD COUNT 9.5 10^3/uL (4.0-10.0)
[2021-09-17 06:30] VITALS: BP 117/77
[2021-09-17 07:15] LABS: ALBUMIN 1.9 GM/DL (3.2-5.2); CALCIUM LEVEL 9.3 MG/DL (8.5-10.1); CREATININE FOR GFR 5.88 MG/DL (0.70-1.30); GLOMERULAR FILTRATION RATE 10.7 (>56); POTASSIUM SERUM 3.6 MEQ/L (3.5-5.1); TOTAL PROTEIN 5.8 GM/DL (6.4-8.2)
[2021-09-17] MEDS: LACTOBACILLUS ACIDOPHILUS CAP (BACID) PO SCH ×2 (08:37→17:00)
[2021-09-17] MEDS: FOLIC ACID 1 MG TAB PO SCH (08:37)
[2021-09-17] MEDS: MULTIVITAMINS/MINERALS THERAP 1 TAB PO SCH (08:37)
[2021-09-17] MEDS: PANTOPRAZOLE 40MG VIAL (C9113 PER 1) IV SCH (08:37)
[2021-09-17] MEDS: MIDODRINE 5 MG TAB PO SCH ×3 (08:37→16:59)
[2021-09-17] MEDS: HEPARIN SOD (PORCINE) 5000UNITS/ML 1ML VIAL/SYRINGE SQ SCH ×2 (08:37→20:50)
[2021-09-17] MEDS ORDERED: OXAZEPAM 10 MG CAP PO SCH (09:00)
[2021-09-17] MEDS ORDERED: FUROSEMIDE 40MG/4ML VIAL (J1940) IV ONE (11:20)
[2021-09-17] MEDS ORDERED: POTASSIUM CHLORIDE 10MEQ SR TABLET PO ONE (11:20)
[2021-09-17 14:00] VITALS: BP 136/79
[2021-09-17 20:36] VITALS: BP 126/71
[2021-09-18] MEDS: AMPICILLIN SOD/SULBACTAM SOD 1.5 GM in D5W MINI-BAG PLUS 50 ML IV SCH ×2 (04:47→17:01)
[2021-09-18 06:00] VITALS: BP 133/69
[2021-09-18] MEDS: LACTOBACILLUS ACIDOPHILUS CAP (BACID) PO SCH ×2 (08:41→17:28)
[2021-09-18] MEDS: FOLIC ACID 1 MG TAB PO SCH (08:41)
[2021-09-18] MEDS: PANTOPRAZOLE 40MG VIAL (C9113 PER 1) IV SCH (08:41)
[2021-09-18] MEDS: MULTIVITAMINS/MINERALS THERAP 1 TAB PO SCH (08:41)
[2021-09-18] MEDS: HEPARIN SOD (PORCINE) 5000UNITS/ML 1ML VIAL/SYRINGE SQ SCH ×2 (08:42→19:58)
[2021-09-18 10:05] LABS: HEMATOCRIT 34.9 % (42.0-52.0); MEAN CORPUSCULAR HEMOGLOBIN 32.7 pg (27.0-33.0); MEAN CORPUSCULAR HGB CONC 31.5 g/dl (32.0-36.5); MEAN CORPUSCULAR VOLUME 103.9 fl (80.0-96.0); PLATELET COUNT, AUTOMATED 175 10^3/uL (150-450); RED BLOOD COUNT 3.36 10^6/uL (4.30-6.10); WHITE BLOOD COUNT 8.4 10^3/uL (4.0-10.0)
[2021-09-18 10:46] LABS: ALBUMIN 2.3 GM/DL (3.2-5.2); CALCIUM LEVEL 9.9 MG/DL (8.5-10.1); CREATININE FOR GFR 5.98 MG/DL (0.70-1.30); GLOMERULAR FILTRATION RATE 10.5 (>56); POTASSIUM SERUM 3.8 MEQ/L (3.5-5.1); TOTAL PROTEIN 7.2 GM/DL (6.4-8.2)
[2021-09-18 14:00] VITALS: BP 126/70
[2021-09-19] MEDS: AMPICILLIN SOD/SULBACTAM SOD 1.5 GM in D5W MINI-BAG PLUS 50 ML IV SCH (03:10)
[2021-09-19 06:00] VITALS: BP 130/87
[2021-09-19] MEDS: LACTOBACILLUS ACIDOPHILUS CAP (BACID) PO SCH ×2 (08:39→18:33)
[2021-09-19] MEDS: MULTIVITAMINS/MINERALS THERAP 1 TAB PO SCH (08:39)
[2021-09-19] MEDS: FOLIC ACID 1 MG TAB PO SCH (08:39)
[2021-09-19] MEDS: HEPARIN SOD (PORCINE) 5000UNITS/ML 1ML VIAL/SYRINGE SQ SCH ×3 (08:40→23:03)
[2021-09-19] MEDS: PANTOPRAZOLE 40MG VIAL (C9113 PER 1) IV SCH (08:40)
[2021-09-19 08:42] LABS: HEMATOCRIT 30.8 % (42.0-52.0); HEMOGLOBIN 9.9 g/dl (13.5-17.5); MEAN CORPUSCULAR HEMOGLOBIN 32.9 pg (27.0-33.0); MEAN CORPUSCULAR HGB CONC 32.1 g/dl (32.0-36.5); MEAN CORPUSCULAR VOLUME 102.3 fl (80.0-96.0); PLATELET COUNT, AUTOMATED 161 10^3/uL (150-450); RED BLOOD COUNT 3.01 10^6/uL (4.30-6.10); WHITE BLOOD COUNT 7.9 10^3/uL (4.0-10.0)
[2021-09-19 09:15] LABS: ALBUMIN 2.2 GM/DL (3.2-5.2); BILIRUBIN,TOTAL 0.8 MG/DL (0.2-1.0); CREATININE FOR GFR 5.51 MG/DL (0.70-1.30); GLOMERULAR FILTRATION RATE 11.6 (>56); POTASSIUM SERUM 3.8 MEQ/L (3.5-5.1); TOTAL PROTEIN 6.8 GM/DL (6.4-8.2)
[2021-09-19] MEDS ORDERED: LevoFLOXacin 500 MG TABLET PO ONE (13:55)
[2021-09-19 14:00] VITALS: BP 131/83
[2021-09-19 15:58] LABS: ERYTHROCYTE SEDIMENTATION RATE > 140 mm/hr (0-20)
[2021-09-19] MEDS: ASPIRIN 81MG ENTERIC TABLET PO SCH (18:33)
[2021-09-19] MEDS ORDERED: REMDESIVIR 200 MG in NS 250 ML IV ONE (18:45)
[2021-09-19] MEDS ORDERED: ALBUTEROL 90 MCG/ACT 8GM HFA INHALER INH PRN (18:50)
[2021-09-19] MEDS ORDERED: EPINEPHrine INJ 1 MG/ML 1ML AMP IM PRN (18:50)
[2021-09-19] MEDS ORDERED: methylPREDNISolone 125MG 2ML VIAL IV PRN (18:50)
[2021-09-19] MEDS ORDERED: NS 1,000 ML IV SCH (18:50)
[2021-09-19] MEDS ORDERED: diphenhydrAMINE 50MG/ML VIAL (J1200) IV PRN (18:50)
[2021-09-19] MEDS ORDERED: ALBUTEROL SULFATE 2.5 MG/0.5 ML INH NEB SOLN INH PRN (18:50)
[2021-09-19 20:00] VITALS: BP 112/76
[2021-09-19 20:03] LABS: INR 0.97; PROTHROMBIN TIME 13.3 SECONDS (12.7-14.5)
[2021-09-19 20:05] LABS: PARTIAL THROMBOPLASTIN TIME 56.8 SECONDS (25.9-37.0)
[2021-09-19 20:07] LABS: D-DIMER QUANT 1707.19 ng/ml (<500)
[2021-09-19 20:28] LABS: ALBUMIN 2.4 GM/DL (3.2-5.2); BILIRUBIN,DIRECT 0.7 MG/DL (0.0-0.2); BILIRUBIN,TOTAL 0.9 MG/DL (0.2-1.0); C REACTIVE PROTEIN QUANTITATIV 1.77 MG/DL (0.00-0.30); TOTAL PROTEIN 6.9 GM/DL (6.4-8.2)
[2021-09-19] MEDS ORDERED: SODIUM CHLORIDE 0.9% INJ 10 ML SYR IV ONE (20:45)
[2021-09-19] MEDS ORDERED: SOTROVIMAB 500 MG in NS 100 ML IV ONE (21:00)
[2021-09-19 22:55] VITALS: BP 150/84
[2021-09-19 23:33] VITALS: BP 124/73
[2021-09-20 04:00] VITALS: BP 119/62
[2021-09-20] MEDS ORDERED: LevoFLOXacin 500 MG TABLET PO SCH (06:00)
[2021-09-20 07:48] LABS: BASO # 0.1 10^3/uL (0.0-0.2); BASO % 0.9 % (0.0-1.0); EOS # 0.1 10^3/uL (0.0-0.5); EOS % 1.7 % (0.0-3.0); HEMATOCRIT 31.4 % (42.0-52.0); HEMOGLOBIN 9.8 g/dl (13.5-17.5); LYMPH # 2.4 10^3/uL (1.5-5.0); LYMPH % 29.1 % (24.0-44.0); MEAN CORPUSCULAR HEMOGLOBIN 32.2 pg (27.0-33.0); MEAN CORPUSCULAR HGB CONC 31.2 g/dl (32.0-36.5); MEAN CORPUSCULAR VOLUME 103.3 fl (80.0-96.0); MONO # 1.3 10^3/uL (0.0-0.8); NEUTROPHILS # 4.2 10^3/uL (1.5-8.5); NEUTROPHILS % 51.8 % (36.0-66.0); PLATELET COUNT, AUTOMATED 184 10^3/uL (150-450); RED BLOOD COUNT 3.04 10^6/uL (4.30-6.10); WHITE BLOOD COUNT 8.1 10^3/uL (4.0-10.0)
[2021-09-20 08:22] LABS: ALBUMIN 2.2 GM/DL (3.2-5.2); BILIRUBIN,DIRECT 0.6 MG/DL (0.0-0.2); BILIRUBIN,TOTAL 0.8 MG/DL (0.2-1.0); CALCIUM LEVEL 8.8 MG/DL (8.5-10.1); CREATININE FOR GFR 4.9 MG/DL (0.70-1.30); GLOMERULAR FILTRATION RATE 13.2 (>56); MAGNESIUM LEVEL 1.6 MG/DL (1.8-2.4); POTASSIUM SERUM 3.9 MEQ/L (3.5-5.1); TOTAL PROTEIN 6.6 GM/DL (6.4-8.2)
[2021-09-20] MEDS: MULTIVITAMINS/MINERALS THERAP 1 TAB PO SCH (09:28)
[2021-09-20] MEDS: ASPIRIN 81MG ENTERIC TABLET PO SCH (09:28)
[2021-09-20] MEDS: PANTOPRAZOLE 40MG VIAL (C9113 PER 1) IV SCH (09:28)
[2021-09-20] MEDS: FOLIC ACID 1 MG TAB PO SCH (09:28)
[2021-09-20] MEDS: LACTOBACILLUS ACIDOPHILUS CAP (BACID) PO SCH ×2 (09:28→17:42)
[2021-09-20] MEDS: HEPARIN SOD (PORCINE) 5000UNITS/ML 1ML VIAL/SYRINGE SQ SCH ×2 (09:34→20:25)
[2021-09-20] MEDS ORDERED: MAG SULF 1GM/100ML (MAG RUN) 1 GM in IV 1 EA IV ONE (12:35)
[2021-09-20 14:20] VITALS: BP 104/58
[2021-09-20] MEDS ORDERED: REMDESIVIR 100 MG in NS 250 ML IV SCH (18:45)
[2021-09-20] MEDS ORDERED: SODIUM CHLORIDE 0.9% INJ 10 ML SYR IV SCH (19:45)
[2021-09-20 20:00] VITALS: BP 108/62
[2021-09-20] MEDS ORDERED: ACETAMINOPHEN TAB 650MG DOSE (2X325MG) PO PRN (20:20)
[2021-09-21 04:00] VITALS: BP 131/72
[2021-09-21 06:57] LABS: BASO # 0.1 10^3/uL (0.0-0.2); BASO % 1.4 % (0.0-1.0); EOS # 0.2 10^3/uL (0.0-0.5); EOS % 2.4 % (0.0-3.0); HEMATOCRIT 32.2 % (42.0-52.0); LYMPH % 45.2 % (24.0-44.0); MEAN CORPUSCULAR HEMOGLOBIN 32.3 pg (27.0-33.0); MEAN CORPUSCULAR HGB CONC 31.1 g/dl (32.0-36.5); MEAN CORPUSCULAR VOLUME 103.9 fl (80.0-96.0); MONO % 14.5 % (2.0-8.0); NEUTROPHILS # 2.4 10^3/uL (1.5-8.5); NEUTROPHILS % 36.3 % (36.0-66.0); PLATELET COUNT, AUTOMATED 211 10^3/uL (150-450); WHITE BLOOD COUNT 6.6 10^3/uL (4.0-10.0)
[2021-09-21 07:06] LABS: INR 1.05; PROTHROMBIN TIME 14.1 SECONDS (12.7-14.5)
[2021-09-21 07:07] LABS: PARTIAL THROMBOPLASTIN TIME 62.5 SECONDS (25.9-37.0)
[2021-09-21 07:24] LABS: ALBUMIN 2.3 GM/DL (3.2-5.2); BILIRUBIN,DIRECT 0.6 MG/DL (0.0-0.2); BILIRUBIN,TOTAL 0.8 MG/DL (0.2-1.0); CALCIUM LEVEL 8.8 MG/DL (8.5-10.1); CREATININE FOR GFR 4.35 MG/DL (0.70-1.30); GLOMERULAR FILTRATION RATE 15.2 (>56); MAGNESIUM LEVEL 1.9 MG/DL (1.8-2.4); POTASSIUM SERUM 3.8 MEQ/L (3.5-5.1); TOTAL PROTEIN 7.1 GM/DL (6.4-8.2)
[2021-09-21] MEDS: ASPIRIN 81MG ENTERIC TABLET PO SCH (08:27)
[2021-09-21] MEDS: LACTOBACILLUS ACIDOPHILUS CAP (BACID) PO SCH (08:27)
[2021-09-21] MEDS: MULTIVITAMINS/MINERALS THERAP 1 TAB PO SCH (08:27)
[2021-09-21] MEDS: PANTOPRAZOLE 40MG VIAL (C9113 PER 1) IV SCH (08:27)
[2021-09-21] MEDS: FOLIC ACID 1 MG TAB PO SCH (08:27)
[2021-09-21] MEDS: HEPARIN SOD (PORCINE) 5000UNITS/ML 1ML VIAL/SYRINGE SQ SCH (08:28)
[2021-09-21 08:31] VITALS: O2SAT 95
[2021-09-21] MEDS ORDERED: VITMTA PO (11:07)
[2021-09-21] MEDS ORDERED: ASPI-551 PO (11:07)
[2021-09-21] MEDS ORDERED: THIA100TA PO (11:08)
[2021-09-21 12:00] VITALS: O2SAT 97
[2021-09-21 14:00] VITALS: BP 127/77
[2021-09-21 16:10] VITALS: O2SAT 95
== END 2021-09-21 17:25 | disposition home or self-care (01) | DRG 720 ==
LOC: M ED 08:25 → M ED INP 12:23 → M PCU 20:04 → M MSPAV 09-16 22:09 → M 4MAIN 09-19 20:04
PROVIDERS: ADMIT Internal Medicine; ATTEND General Practice
PROC: 02HV33Z Insertion of Infusion Device into Superior Vena Cava, Percutaneous Approach (ICD-10-PCS; principal; 2021-09-07)
PROC: 06HM33Z Insertion of Infusion Device into Right Femoral Vein, Percutaneous Approach (ICD-10-PCS; 2021-09-08)
PROC: 04HK33Z Insertion of Infusion Device into Right Femoral Artery, Percutaneous Approach (ICD-10-PCS; 2021-09-08)
PROC: 5A1D90Z Performance of Urinary Filtration, Continuous, Greater than 18 hours Per Day (ICD-10-PCS; 2021-09-09)
PROC: XW033H6 Introduction of Other New Technology Monoclonal Antibody into Peripheral Vein, Percutaneous Approach, New Technology Group 6 (ICD-10-PCS; 2021-09-19)
DX: A41.9 Sepsis, unspecified organism (principal); R57.1 Hypovolemic shock; N17.0 Acute kidney failure with tubular necrosis; J96.01 Acute respiratory failure with hypoxia; U07.1 COVID-19; E87.2 Acidosis; I13.0 Hypertensive heart and chronic kidney disease with heart failure and stage 1 through stage 4 chronic kidney disease, or unspecified chronic kidney disease; D69.6 Thrombocytopenia, unspecified; J69.0 Pneumonitis due to inhalation of food and vomit; J12.82 Pneumonia due to coronavirus disease 2019; G93.41 Metabolic encephalopathy; N18.32 Chronic kidney disease, stage 3b; A04.0 Enteropathogenic Escherichia coli infection; J81.0 Acute pulmonary edema; R65.21 Severe sepsis with septic shock; I50.32 Chronic diastolic (congestive) heart failure; M62.82 Rhabdomyolysis; E83.51 Hypocalcemia; E87.70 Fluid overload, unspecified; K70.10 Alcoholic hepatitis without ascites; K76.0 Fatty (change of) liver, not elsewhere classified; E78.5 Hyperlipidemia, unspecified; F10.239 Alcohol dependence with withdrawal, unspecified; Z98.41 Cataract extraction status, right eye; Z79.899 Other long term (current) drug therapy; E80.6 Other disorders of bilirubin metabolism; E87.6 Hypokalemia; R00.1 Bradycardia, unspecified; G47.00 Insomnia, unspecified; R53.1 Weakness

== ENCOUNTER 2021-10-10 12:35 | Emergency (ER) | payer SELFPAY ==
[~2021-10-10] VITALS: Ht 170.2 cm; Wt 65.0 kg
[~2021-10-10 12:35] MED LIST changes: +ASPI-551 PO; +CARV25TA PO; +PT COMMENT; +VITMTA PO
[2021-10-10 14:15] LABS: BASO % 0.5 % (0.0-1.0); EOS # 0.2 10^3/uL (0.0-0.5); HEMATOCRIT 36.5 % (42.0-52.0); HEMOGLOBIN 11.7 g/dl (13.5-17.5); LYMPH # 1.7 10^3/uL (1.5-5.0); LYMPH % 20.2 % (24.0-44.0); MEAN CORPUSCULAR HEMOGLOBIN 31.2 pg (27.0-33.0); MEAN CORPUSCULAR HGB CONC 32.1 g/dl (32.0-36.5); MEAN CORPUSCULAR VOLUME 97.3 fl (80.0-96.0); MONO # 0.7 10^3/uL (0.0-0.8); MONO % 8.4 % (2.0-8.0); NEUTROPHILS # 5.9 10^3/uL (1.5-8.5); NEUTROPHILS % 68.5 % (36.0-66.0); PLATELET COUNT, AUTOMATED 180 10^3/uL (150-450); RED BLOOD COUNT 3.75 10^6/uL (4.30-6.10); WHITE BLOOD COUNT 8.5 10^3/uL (4.0-10.0)
[2021-10-10 14:32] LABS: CK-MB VALUE MASS 3.3 NG/ML (<3.6); MB/CK RELATIVE INDEX 4.07 (< OR =4)
[2021-10-10 14:39] LABS: ALBUMIN 3.3 GM/DL (3.2-5.2); ALT/SGPT 43 U/L (12-78); BILIRUBIN,DIRECT 0.5 MG/DL (0.0-0.2); BILIRUBIN,TOTAL 0.9 MG/DL (0.2-1.0); BLOOD UREA NITROGEN 19 MG/DL (7-18); CALCIUM LEVEL 9.5 MG/DL (8.5-10.1); CARBON DIOXIDE LEVEL 23 MEQ/L (21-32); CHLORIDE LEVEL 109 MEQ/L (98-107); CREATININE FOR GFR 1.42 MG/DL (0.70-1.30); ETHYL ALCOHOL (ETHANOL) < 0.003 % (0.000-0.010); GLOMERULAR FILTRATION RATE 55.3 (>56); GLUCOSE, FASTING 111 MG/DL (70-100); POTASSIUM SERUM 4.3 MEQ/L (3.5-5.1); SODIUM LEVEL 138 MEQ/L (136-145); TOTAL PROTEIN 7.8 GM/DL (6.4-8.2)
[2021-10-10 16:00] VITALS: BP 143/92
[2021-10-10 16:29] LABS: AMPHETAMINES LEVEL URINE NEGATIVE (NEGATIVE); BARBITURATES URINE NEGATIVE (NEGATIVE); BENZODIAZEPINES URINE POSITIVE (NEGATIVE); CANNABINOIDS URINE NEGATIVE (NEGATIVE); COCAINE METABOLITE URINE NEGATIVE (NEGATIVE); METHADONE URINE NEGATIVE (NEGATIVE); OPIATES URINE NEGATIVE (NEGATIVE); PHENCYCLIDINE URINE NEGATIVE (NEGATIVE)
== END 2021-10-10 16:13 | disposition home or self-care (01) ==
LOC: M ED 12:35 → EDBD 12:35 → EDSEX 12:35 → M ED 16:13
DX: R55 Syncope and collapse (principal); S00.01XA Abrasion of scalp, initial encounter; S01.21XA Laceration without foreign body of nose, initial encounter; W18.39XA Other fall on same level, initial encounter; Y92.89 Other specified places as the place of occurrence of the external cause; I10 Essential (primary) hypertension; K74.60 Unspecified cirrhosis of liver; G47.30 Sleep apnea, unspecified; Z79.899 Other long term (current) drug therapy

== ENCOUNTER → 2021-10-13 | Outpatient (REF) | payer OTHER | LOC: M SFHCPLAZ 13:03 | PROVIDERS: ATTEND Family Medicine | DX: Z53.20 Procedure and treatment not carried out because of patient's decision for unspecified reasons (principal) ==

== ENCOUNTER → 2021-10-23 | Outpatient (CLI) | payer SELFPAY | LOC: M RAD 10:38 | PROVIDERS: ATTEND Family Medicine | DX: R55 Syncope and collapse (principal) ==

== ENCOUNTER → 2021-11-07 | Outpatient (CLI) | payer OTHER ==
[2021-11-07 17:42] LABS: HEMATOCRIT 34.5 % (42.0-52.0); HEMOGLOBIN 11.3 g/dl (13.5-17.5); MEAN CORPUSCULAR HEMOGLOBIN 29.4 pg (27.0-33.0); MEAN CORPUSCULAR HGB CONC 32.8 g/dl (32.0-36.5); MEAN CORPUSCULAR VOLUME 89.6 fl (80.0-96.0); PLATELET COUNT, AUTOMATED 357 10^3/uL (150-450); RED BLOOD COUNT 3.85 10^6/uL (4.30-6.10); WHITE BLOOD COUNT 8.5 10^3/uL (4.0-10.0)
[2021-11-07 17:48] LABS: C REACTIVE PROTEIN QUANTITATIV 4.39 MG/DL (0.00-0.30)
[2021-11-07 17:59] LABS: APPEARANCE, URINE CLEAR (CLEAR); BACTERIA, URINE AUTO NEGATIVE (NEGATIVE); BILIRUBIN, URINE AUTO NEGATIVE (NEGATIVE); BLOOD, URINE BLOOD NEGATIVE (NEGATIVE); CALCIUM OXALATE CRYSTALS SMALL; COLOR, URINE YELLOW (YELLOW); GLUCOSE, URINE (UA) AUTO NEGATIVE (NEGATIVE); KETONE, URINE AUTO NEGATIVE (NEGATIVE); LEUKOCYTE ESTERASE, URINE AUTO NEGATIVE (NEGATIVE); MUCUS, URINE SMALL (NEGATIVE); NITRITE, URINE AUTO NEGATIVE (NEGATIVE); PROTEIN, URINE AUTO NEGATIVE (NEGATIVE); RBC, URINE AUTO 1 /HPF (0-3); SPECIFIC GRAVITY URINE AUTO 1.015 (1.002-1.035); SQUAMOUS EPITHELIAL CELL UR AU 0 /HPF (0-6); WBC, URINE AUTO 1 /HPF (0-3)
[2021-11-07 18:18] LABS: RHEUMATOID FACTOR QUANT < 10.0 IU/ML (<15.0); URIC ACID 5.7 MG/DL (3.5-7.2)
[2021-11-07 18:24] LABS: ERYTHROCYTE SEDIMENTATION RATE 115 mm/hr (0-20)
== END ==
LOC: M PLALAB 14:52 → M PLAIMG 14:52
PROVIDERS: ATTEND Family Medicine
DX: M25.442 Effusion, left hand (principal); M25.571 Pain in right ankle and joints of right foot; R31.29 Other microscopic hematuria

== ENCOUNTER → 2021-11-14 | Outpatient (REF) | payer OTHER | LOC: M SFHCPLAZ 13:36 | PROVIDERS: ATTEND Family Medicine | DX: Z53.9 Procedure and treatment not carried out, unspecified reason (principal) ==

== ENCOUNTER → 2021-11-20 | Outpatient (CLI) | payer OTHER ==
[2021-11-20 16:31] LABS: C REACTIVE PROTEIN QUANTITATIV 0.99 MG/DL (0.00-0.30); URIC ACID 5.7 MG/DL (3.5-7.2)
== END ==
LOC: M WUC 13:50
PROVIDERS: ATTEND Family Medicine
DX: M10.9 Gout, unspecified (principal)

== ENCOUNTER → 2022-02-19 | Outpatient (REF) | payer OTHER | LOC: M SFHCPLAZ 14:26 | PROVIDERS: ATTEND Family Medicine | DX: E78.2 Mixed hyperlipidemia (principal); Z53.9 Procedure and treatment not carried out, unspecified reason ==

== ENCOUNTER → 2022-02-26 | Outpatient (CLI) | payer OTHER ==
[2022-02-26 16:50] LABS: CHOLESTEROL RISK RATIO 1.787 (<5)
== END ==
LOC: M WUC 14:03
PROVIDERS: ATTEND Family Medicine
DX: E78.2 Mixed hyperlipidemia (principal)

== ENCOUNTER → 2022-10-22 | Outpatient (REF) | payer OTHER | LOC: M SFHCPLAZ 15:24 | PROVIDERS: ATTEND Family Medicine | DX: Z53.9 Procedure and treatment not carried out, unspecified reason (principal) ==

== ENCOUNTER → 2022-11-07 | Outpatient (CLI) | payer OTHER | LOC: M RAD 15:38 | PROVIDERS: ATTEND Nurse Practitioner Family | DX: N17.9 Acute kidney failure, unspecified (principal) ==

== ENCOUNTER → 2023-01-15 | Outpatient (REF) | payer OTHER ==
[~2023-01-15] MED LIST changes: -LOSA100T45 PO; +LOSA100T46 PO
[2023-01-15 18:59] LABS: APPEARANCE, URINE HAZY (CLEAR); BACTERIA, URINE AUTO NEGATIVE (NEGATIVE); BILIRUBIN, URINE AUTO NEGATIVE (NEGATIVE); BLOOD, URINE BLOOD NEGATIVE (NEGATIVE); CALCIUM OXALATE CRYSTALS SMALL; COLOR, URINE YELLOW (YELLOW); GLUCOSE, URINE (UA) AUTO NEGATIVE (NEGATIVE); KETONE, URINE AUTO NEGATIVE (NEGATIVE); LEUKOCYTE ESTERASE, URINE AUTO NEGATIVE (NEGATIVE); NITRITE, URINE AUTO NEGATIVE (NEGATIVE); PROTEIN, URINE AUTO 2+ mg/dL (NEGATIVE); RBC, URINE AUTO 0 /HPF (0-3); SPECIFIC GRAVITY URINE AUTO 1.015 (1.002-1.035); SQUAMOUS EPITHELIAL CELL UR AU 0 /HPF (0-6); UROBILINOGEN, URINE AUTO 0.2 mg/dL (0.0-2.0); WBC, URINE AUTO 1 /HPF (0-3)
[2023-01-15 19:23] LABS: CREATININE,RANDOM URINE 223.1 MG/DL
== END ==
LOC: M LAB REF 17:16
PROVIDERS: ATTEND Nurse Practitioner Family
DX: R80.9 Proteinuria, unspecified (principal); R31.29 Other microscopic hematuria; N39.0 Urinary tract infection, site not specified

== ENCOUNTER → 2023-04-23 | Outpatient (REF) | payer OTHER ==
[2023-04-23 19:33] LABS: CREATININE,RANDOM URINE 119.1 MG/DL
== END ==
LOC: M LAB REF 17:02
PROVIDERS: ATTEND Nurse Practitioner Family
DX: R80.9 Proteinuria, unspecified (principal)

== ENCOUNTER → 2023-07-29 | Outpatient (CLI) | payer OTHER | LOC: M RAD 08:00 | PROVIDERS: ATTEND Student in an Organized Health Care Education/Training Program | DX: K70.30 Alcoholic cirrhosis of liver without ascites (principal); R16.0 Hepatomegaly, not elsewhere classified ==

== ENCOUNTER → 2023-12-02 | Outpatient (CLI) | payer OTHER ==
[2023-12-02 16:59] LABS: BASO % 0.5 % (0.0-1.0); EOS # 0.1 10^3/uL (0.0-0.5); EOS % 0.9 % (0.0-3.0); HEMATOCRIT 44.2 % (42.0-52.0); HEMOGLOBIN 14.9 g/dl (13.5-17.5); LYMPH # 1.5 10^3/uL (1.5-5.0); LYMPH % 23.2 % (24.0-44.0); MEAN CORPUSCULAR HEMOGLOBIN 32.4 pg (27.0-33.0); MEAN CORPUSCULAR HGB CONC 33.7 g/dl (32.0-36.5); MEAN CORPUSCULAR VOLUME 96.1 fl (80.0-96.0); MONO # 0.5 10^3/uL (0.0-0.8); MONO % 8.1 % (2.0-8.0); NEUTROPHILS # 4.5 10^3/uL (1.5-8.5); NEUTROPHILS % 67.1 % (36.0-66.0); PLATELET COUNT, AUTOMATED 123 10^3/uL (150-450); WHITE BLOOD COUNT 6.6 10^3/uL (4.0-10.0)
[2023-12-02 17:03] LABS: ALBUMIN 4.2 G/DL (3.2-5.2); BILIRUBIN,TOTAL 2.4 MG/DL (0.3-1.2); CALCIUM LEVEL 9.9 MG/DL (8.5-10.1); CHOLESTEROL RISK RATIO 3.57 (<5); CREATININE FOR GFR 1.81 MG/DL (0.70-1.30); FREE T4 0.83 NG/DL (0.89-1.76); GLOMERULAR FILTRATION RATE 41.5 (>56); HDL CHOLESTEROL 43.4 MG/DL (>40); LDL CHOLESTEROL 50.8 MG/DL (<100); NON-HDL-C 111.6 MG/DL; POTASSIUM SERUM 4.4 MMOL/L (3.5-5.1); THYROID STIMULATING HORMONE 3.681 uIU/ML (0.55-4.78); TOTAL PROTEIN 7.8 G/DL (5.7-8.2)
== END ==
LOC: M WUC 13:31
PROVIDERS: ATTEND Student in an Organized Health Care Education/Training Program
DX: K70.30 Alcoholic cirrhosis of liver without ascites (principal); I10 Essential (primary) hypertension; E78.2 Mixed hyperlipidemia; D63.8 Anemia in other chronic diseases classified elsewhere

== ENCOUNTER → 2024-03-03 | Outpatient (REF) | payer OTHER | LOC: M SFHCPLAZ 16:13 | PROVIDERS: ATTEND Family Medicine | DX: R16.0 Hepatomegaly, not elsewhere classified (principal); K70.30 Alcoholic cirrhosis of liver without ascites ==

== ENCOUNTER → 2024-05-12 | Outpatient (REF) | payer OTHER ==
[2024-05-12 18:19] LABS: IRON (FE) 272 UG/DL (65-175); PERCENT SATURATION 88.9 % (19.7-50.0); TOTAL IRON BINDING CAPACITY 306 UG/DL (250-425); VITAMIN B12 LEVEL 731 PG/ML (211-911)
[2024-05-12 18:20] LABS: FOLATE > 24.0 NG/ML (>5.4)
[2024-05-12 18:36] LABS: FERRITIN 1653.6 NG/ML (10.5-307.3)
== END ==
LOC: M LAB REF 17:24
PROVIDERS: ATTEND Nurse Practitioner Family
DX: D64.9 Anemia, unspecified (principal)

== ENCOUNTER → 2024-05-26 | Outpatient (REF) | payer OTHER ==
[2024-05-26 18:43] LABS: ALBUMIN 3.3 G/DL (3.2-5.2); BILIRUBIN,DIRECT 0.7 MG/DL (<0.4); BILIRUBIN,TOTAL 1.3 MG/DL (0.3-1.2); FREE T4 0.96 NG/DL (0.89-1.76); THYROID STIMULATING HORMONE 3.421 uIU/ML (0.55-4.78); TOTAL PROTEIN 6.7 G/DL (5.7-8.2)
== END ==
LOC: M LAB REF 17:44
PROVIDERS: ATTEND Nurse Practitioner Family
DX: R63.4 Abnormal weight loss (principal); N17.9 Acute kidney failure, unspecified

== ENCOUNTER → 2024-07-28 | Outpatient (REF) | payer OTHER ==
[~2024-07-28] MED LIST changes: +ASPI81CH33 PO; +CALC1CAP31; +CARV12.5; +MAGN500T2; +MULT-110
[2024-07-28 18:22] LABS: CREATININE,RANDOM URINE 219.7 MG/DL
== END ==
LOC: M LAB REF 16:55
PROVIDERS: ATTEND Nurse Practitioner Family
DX: R80.9 Proteinuria, unspecified (principal)

== ENCOUNTER → 2024-08-17 | Outpatient (CLI) | payer OTHER ==
[~2024-08-17] MED LIST changes: +PROHANCE 279.3MG/ML 15ML VIAL As Ordered ONE
== END ==
LOC: M RAD 10:40
PROVIDERS: ATTEND Student in an Organized Health Care Education/Training Program
DX: R16.0 Hepatomegaly, not elsewhere classified (principal); K76.0 Fatty (change of) liver, not elsewhere classified; I51.7 Cardiomegaly
CPT/HCPCS: 74183; A9576

== ENCOUNTER → 2024-10-27 | Outpatient (REF) | payer OTHER ==
[~2024-10-27] MED LIST changes: -PROHANCE 279.3MG/ML 15ML VIAL As Ordered ONE
[2024-10-27 18:09] LABS: CREATININE,RANDOM URINE 140.9 MG/DL
[2024-10-27 18:14] LABS: TOTAL PROTEIN,RANDOM URINE 248.1 MG/DL (0.0-14.0)
== END ==
LOC: M LAB REF 17:13
PROVIDERS: ATTEND Nurse Practitioner Family
DX: R80.9 Proteinuria, unspecified (principal)

== ENCOUNTER 2025-03-18 09:32 | Emergency (ER) | payer OTHER ==
[~2025-03-18] VITALS: Ht 172.7 cm; Wt 72.6 kg
[~2025-03-18 09:32] MED LIST changes: -CALC1CAP31; +CALC1CAP31 PO; -CARV12.5; -MAGN500T2; +MAGN500T2 PO
[2025-03-18] MEDS: NS (Normal Saline) 0.9% 1,000 ML IV SCH (09:48)
[2025-03-18] MEDS ORDERED: NOREPINEPHRINE 4 MG IN D5W 250 ML IVBAG (16 MCG/ML) As Ordered ONE (09:53)
[2025-03-18] MEDS: NOREPINEPHRINE 4MG IN D5 250ML 4 MG in IV 1 EA IV SCH (09:57)
[2025-03-18 10:10] LABS: BASO # 0.0 10^3/uL (0.0-0.2); BASO % 0.3 % (0.0-1.0); EOS # 0.0 10^3/uL (0.0-0.5); EOS % 0.3 % (0.0-3.0); LYMPH # 0.9 10^3/uL (1.5-5.0); LYMPH % 13.4 % (24.0-44.0); MONO # 0.9 10^3/uL (0.0-0.8); MONO % 13.1 % (2.0-8.0); NEUTROPHILS # 5.1 10^3/uL (1.5-8.5); NEUTROPHILS % 72.6 % (36.0-66.0)
[2025-03-18 10:12] LABS: PLATELET COUNT, AUTOMATED 47 10^3/uL (150-450)
[2025-03-18 10:23] LABS: INR 2.51
[2025-03-18] MEDS: PIPERACILLIN/TAZOBACTAM SOD 4.5 GM in DEXTROSE 5% (D5W) ADV/MINI-BAG 50 ML IV ONE (10:32)
[2025-03-18] MEDS: NS (Normal Saline) 0.9% 1,000 ML IV ONE ×4 (10:55→11:50)
[2025-03-18 10:56] LABS: ALT/SGPT 735.0 U/L (7.0-40); AST/SGOT 3246.0 U/L (<34); CALCIUM LEVEL 7.4 MG/DL (8.5-10.1); CARBON DIOXIDE LEVEL 14.0 MMOL/L (20-31); CHLORIDE LEVEL 105.0 MMOL/L (98-107); CK-MB VALUE MASS 1044.2 NG/ML (<3.6); CREATININE FOR GFR 4.87 MG/DL (0.70-1.30); GLOMERULAR FILTRATION RATE 13.1 (>56); POTASSIUM SERUM 4.4 MMOL/L (3.5-5.1); SODIUM LEVEL 135.0 MMOL/L (136-145)
[2025-03-18] MEDS: VASOPRESSIN IN 0.9 % NACL 20 UNIT in IV 1 EA IV SCH (11:16)
[2025-03-18] MEDS ORDERED: EPINEPHrine HCL INJ 1 MG in D5W 240 ML IV SCH (11:25)
[2025-03-18] MEDS ORDERED: PHENYLEPHRINE HCL INJ 50 MG in D5W 500 ML IV SCH (11:30)
[2025-03-18 11:34] LABS: ABG BASE EXCESS -16.1 (-2.0-2.0); ABG HCO3 11.1 MMOL/L (22.0-26.0); ABG O2 SATURATION 96.9 % (95.0-99.0); ABG PARTIAL PRESSURE CO2 31.0 mmHg (35.0-45.0); ABG PARTIAL PRESSURE O2 112.9 mmHg (75.0-100.0); ABG STANDARD HCO3 12.2 MMOL/L. (22.0-26.0); ABG TOTAL CO2 12.1 MMOL/L (22.0-29.0)
[2025-03-18 11:39] LABS: ABG pH (ARTERIAL) 7.172 UNITS (7.350-7.450)
[2025-03-18] MEDS: HYDROCORTISONE 100 MG/2 ML VIAL IV ONE (11:42)
[2025-03-18 11:46] LABS: CPK CREATINE PHOSPHOKINASE 116508.0 U/L (46-171); MAGNESIUM LEVEL 2.1 MG/DL (1.8-2.4); MB/CK RELATIVE INDEX 0.89 (< OR =4)
[2025-03-18 12:06] LABS: CK-MB VALUE MASS 905.3 NG/ML (<3.6)
[2025-03-18 12:26] LABS: CPK CREATINE PHOSPHOKINASE 102829.0 U/L (46-171); MB/CK RELATIVE INDEX 0.88 (< OR =4)
[2025-03-18] MEDS: LACTULOSE 20 GM/30 ML SYRUP UDC PO ONE (12:43)
[2025-03-18 13:23] LABS: CALCIUM LEVEL 6.2 MG/DL (8.5-10.1); CARBON DIOXIDE LEVEL 13.0 MMOL/L (20-31); CHLORIDE LEVEL 109.0 MMOL/L (98-107); CREATININE FOR GFR 4.31 MG/DL (0.70-1.30); GLOMERULAR FILTRATION RATE 15.2 (>56); POTASSIUM SERUM 6.0 MMOL/L (3.5-5.1); SODIUM LEVEL 134.0 MMOL/L (136-145)
[2025-03-18] MEDS ORDERED: HEPARIN SOD 5000 UNITS/ML 1 ML VIAL/SYRINGE SC SCH (13:30)
[2025-03-18 14:18] LABS: C REACTIVE PROTEIN QUANTITATIV 3.12 MG/DL (<1.0); PHOSPHORUS LEVEL 4.6 MG/DL (2.5-4.9)
[2025-03-18] MEDS ORDERED: THERTAB52 PO (14:26)
[2025-03-18] MEDS ORDERED: HOME MED LIST COMPLETE! XX SCH (14:30)
[2025-03-18] MEDS: DEXTROSE 50% 50 ML SYRINGE IV STA (15:05)
[2025-03-18] MEDS: HumuLIN R (REGULAR) INSULIN (NovoLIN R) **100 U/ML** PER UNIT IV STA (15:06)
[2025-03-18] MEDS: CALCIUM GLUCONATE 1,000 MG in DEXTROSE 5% (D5W) MINI-BAG PLU 100 ML IV ONE (15:06)
[2025-03-18] MEDS: SOD POLYSTYRENE SULFONATE SUSP 15GM 60ML UD PO SCH (15:17)
[2025-03-18 18:19] VITALS: BP 105/81
[2025-03-18] MEDS: METOPROLOL TART 25 MG TABLET PO SCH (18:19)
[2025-03-18 18:55] LABS: ALT/SGPT 768.0 U/L (7.0-40); AST/SGOT 3014.0 U/L (<34); CALCIUM LEVEL 6.9 MG/DL (8.5-10.1); CARBON DIOXIDE LEVEL 15.0 MMOL/L (20-31); CHLORIDE LEVEL 109.0 MMOL/L (98-107); CREATININE FOR GFR 4.88 MG/DL (0.70-1.30); GLOMERULAR FILTRATION RATE 13.1 (>56); POTASSIUM SERUM 3.9 MMOL/L (3.5-5.1); SODIUM LEVEL 137.0 MMOL/L (136-145)
[2025-03-18 19:45] VITALS: BP 96/78; O2SAT 99
[2025-03-18] MEDS: SODIUM BICARBONATE 150 MEQ in D5W 1,000 ML IV SCH (19:50)
[2025-03-18] MEDS ORDERED: CALCIUM GLUCONATE 1,000 MG in DEXTROSE 5% (D5W) MINI-BAG PLU 100 ML IV SCH (21:00)
[2025-03-18] MEDS ORDERED: PIPERACILLIN/TAZOBACTAM SOD 4.5 GM in DEXTROSE 5% (D5W) ADV/MINI-BAG 50 ML IV SCH (22:00)
== END 2025-03-18 20:08 | disposition short-term general hospital (02) ==
LOC: M ED 09:32 → EDBD 09:32 → M ED 20:08
DX: R65.21 Severe sepsis with septic shock (principal); N17.8 Other acute kidney failure; K83.09 Other cholangitis; I48.91 Unspecified atrial fibrillation; I10 Essential (primary) hypertension; G47.33 Obstructive sleep apnea (adult) (pediatric); E78.00 Pure hypercholesterolemia, unspecified; F10.10 Alcohol abuse, uncomplicated; Z79.1 Long term (current) use of non-steroidal anti-inflammatories (NSAID); Z79.899 Other long term (current) drug therapy; Z79.810 Long term (current) use of selective estrogen receptor modulators (SERMs)
CPT/HCPCS: 36556; 36600; 70450; 71045; 71250; 74176; 76705; 80047; 80048; 80053; 80076; 82140; 82150; 82330; 82550; 82553; 82803; 83605; 83690; 83735; 84100; 84484; 85025; 85049; 85055; 85610; 85652; 85730; 86140; 86850; 86900; 86901; 87040; 87486; 87581; 87633; 87798; 93005; 93041; 93306; 94760; 96365; 96366; 96375; 99291; 99292; J0612; J1720; J1815; J2543; J2598